=== PATIENT | male | born 1945 | race Caucasian/White ===

== ENCOUNTER 2018-01-12 09:49 | Inpatient (IN) | payer OTHER ==
[~2018-01-12] VITALS: Ht 175.3 cm; Wt 94.6 kg
[~2018-01-12 09:49] MED LIST: AMIO200T4 PO; ASPI-252 PO; ASPI325T11 PO; ASPI325T8 PO; ATOR20TA PO; ATOR20TA58 PO; CELE200C PO; CLOP75TA57 PO; FERR325T14 PO; FERR325T72 PO; LISI2.5T PO; METO-239 PO; METO25TA4 PO; Metoprolol Tartrate PO; NICO1PAT5; Nicotine TD; OXYC1TAB7 PO; Oxycodone Hcl/Acetaminophen PO; PANT40TA3 PO
[2018-01-12] MEDS ORDERED: TAMSULOSIN 0.4 MG CAP.ER.24H. PO ONE (11:00)
[2018-01-12] MEDS ORDERED: IPRATRPIUM/ALBUTEROL 0.5/2.5MG 3 ML NEBU. NEB ONE (11:00)
[2018-01-12 11:05] LABS: BILIRUBIN,URINE NEGATIVE (NEG); CLARITY,URINE TURBID; COLOR,URINE YELLOW; NITRITE,URINE POSITIVE (NEG); PROTEIN,URINE 30 mg/dL (NEG-TRACE)
[2018-01-12 11:22] LABS: BACTERIA,URINE MANY /HPF (0-FEW); RBC,URINE OCC /HPF (0-2); SQUAMOUS EPITHELIAL CELL,UR OCC /LPF; WBC,URINE >40 /HPF (0-4)
[2018-01-12] MEDS ORDERED: HYDROcodone/APAP 5/325MG 1 TAB TABLET PO ONE (11:30)
--- NOTE | 2018-01-12 11:33 | RAD ---
Examination: CT ABDOMEN PELVIS WO CONTRAST History: inability to void/enlarged prostate Comparison/Correlation: None Findings: Axial images of the abdomen and pelvis were obtained without contrast. Sagittal and coronal provided. Lack of IV contrast may limit detection for mass lesions and inflammatory processes. Emphysematous involvement of the lung bases noted. Linear scarring or atelectasis involves the lingula. Low-attenuation involving the intersegmental fissure region of the liver is present. There are 2 foci present and may represent focal fatty infiltration. Gallbladder fossa is unremarkable. Spleen, pancreas, and adrenal glands are normal. Normal renal contours. No hydronephrosis. No radiopaque collecting system calculus. There is a diverticulum involving the right lateral upper urinary bladder and this measures up to 1.8 cm in diameter. Urinary bladder is grossly unremarkable otherwise. Evaluation of the lower urinary bladder is limited due to left hip joint prosthesis and associated artifact. Appendix is normal. No bowel obstruction. Minimal diverticulosis of the colon. Prostate gland measures 5.7 cm transverse by 3.9 cm anteroposterior. No enlarged pelvic lymph nodes. No pelvic free fluid. Kyphoplasty at L2 is noted. Impression: Prostatomegaly. No significant wall thickening of the urinary bladder. Urinary bladder is moderately distended. Urinary bladder diverticulum is small in size. No radiopaque collecting system calculi. Electronically signed by: Thomas Millan MD (01/12/2018 11:30 AM) [facility]
--- NOTE | 2018-01-12 11:39 | EKG ---
[facility] [address] [place] [address] Test Date: 2018-01-12 Test Time: 11:24:12 Pat Name: BRITTANIE HIGUERA Department: Room: Gender: M Medicare Nurse: : 1945 Requested By: ADDIE RUIZ Order Number: [id number] Reading MD: Felipe Vega MD Measurements Intervals [place] Rate: 86 P: 156 HI: 148 QRS: -22 QRSD: 70 T: 151 QT: 350 QTc: 422 Interpretive Statements SR MISSING LEADS NON-SPECIFIC ST/T CHANGES Electronically Signed On 01-13-2018 10:57:37 SITE ACQUISITION MANAGER by Felipe Vega MD
--- NOTE | 2018-01-12 11:39 | PHYS DOC ---
Past Medical History Past Medical History: High Cholesterol, Hypertension, PR Past Surgical History: Angioplasty, Coronary Bypass Surgery, Other Additional Past Surgical Histo: l hip sx, 5 vessle cabg, stents x6 Alcohol Use: None Drug Use: None Adult General Chief Complaint Chief Complaint: PAIN ON URINATION HPI HPI Patient is a 72 year old male with history of high cholesterol, hypertension, BPH, who presents today with difficulty voiding that began yesterday. Patient states he has enlarged prostate and is on medication. He states since yesterday he can only dribble small amount of urine and that's after pushing hard to void. Patient denies any hematuria. Denies any dysuria. He is also complaining of chronic shortness of breath. He states he recently stopped smoking. Patient denies any chest pain. He states he is supposed to be on an breathing treatments but he cannot afford the inhaler. Review of Systems Review of Systems Constitutional: Denies fever or chills [] Eyes: Denies change in visual acuity, redness, or eye pain [] HENT: Denies nasal congestion or sore throat [] Respiratory: Reports chronic shortness of breath, denies coughing Cardiovascular: No additional information not addressed in HPI [] GI: Denies abdominal pain, nausea, vomiting, bloody stools or diarrhea [] : Reports difficulty voiding. Denies dysuria or hematuria [] Musculoskeletal: Denies back pain or joint pain [] Integument: Denies rash or skin lesions [] Neurologic: Denies headache, focal weakness or sensory changes [] All other systems were reviewed and found to be within normal limits, except as documented in this note. Current Medications Current Medications Current Medications Medications (Trade) Dose Ordered Sig/Mj Start Time Stop Time Status Last Admin Dose Admin Acetaminophen/ Hydrocodone Bitart (Lortab 5/325) 1 tab 1X ONCE 01/12/18 11:30 01/12/18 11:33 DC 01/12/18 11:51 1 TAB Albuterol/ Ipratropium (Duoneb) 3 ml 1X ONCE 01/12/18 11:00 01/12/18 11:01 DC 01/12/18 11:33 3 ML Ceftriaxone Sodium 50 ml @ 100 mls/hr 1X ONCE 01/12/18 12:15 01/12/18 12:44 DC 01/12/18 12:15 100 MLS/HR Morphine Sulfate (Morphine Sulfate) 5 mg 1X ONCE 01/12/18 13:15 01/12/18 13:16 DC 01/12/18 13:05 5 MG Tamsulosin HCl (Flomax) 0.4 mg 1X ONCE 01/12/18 11:00 01/12/18 11:01 DC 01/12/18 11:50 0.4 MG Allergies Allergies Allergies Coded Allergies Type Severity Reaction Last Updated Verified No Known Drug Allergies 11/04/14 No Physical Exam Physical Exam Constitutional: Well developed, well nourished, no acute distress, non-toxic appearance. [] HENT: Normocephalic, atraumatic, bilateral external ears normal, oropharynx moist, no oral exudates, nose normal. [] Eyes: PERRLA, EOMI, conjunctiva normal, no discharge. [] Neck: Normal range of motion, no tenderness, supple, no stridor. [] Cardiovascular:Heart rate regular rhythm, no murmur [] Lungs & Thorax: Bilateral breath sounds clear to auscultation [] Abdomen: Bowel sounds normal, soft, no tenderness, no masses, no pulsatile masses. [] Skin: Warm, dry, no erythema, no rash. [] Back: No tenderness, no CVA tenderness. [] Extremities: No tenderness, no cyanosis, no clubbing, ROM intact, no edema. [] Neurologic: Alert and oriented X 3, normal motor function, normal sensory function, no focal deficits noted. [] Psychologic: Affect normal, judgement normal, mood normal. [] Current Patient Data Vital Signs Vital Signs Date Time Temp Pulse Resp B/P (MAP) Pulse Ox O2 Delivery O2 Flow Rate FiO2 01/12/18 13:05 16 99 01/12/18 11:33 Room Air 01/12/18 10:15 99.2 93 118/55 (76) 99.2 Lab Values Laboratory Tests Test 01/12/18 11:00 01/12/18 11:45 Urine Collection Type Unknown Urine Color Yellow Urine Clarity Turbid Urine pH 6.0 Urine Specific [place] 1.020 Urine Protein 30 mg/dL (NEG-TRACE) Urine Glucose (UA) Negative mg/dL (NEG) Urine Ketones (Stick) Negative mg/dL (NEG) Urine Blood Moderate (NEG) Urine Nitrite Positive (NEG) Urine Bilirubin Negative (NEG) Urine Urobilinogen Dipstick 1.0 mg/dL (0.2 mg/dL) Urine Leukocyte Esterase Large (NEG) Urine RBC Occ /HPF (0-2) Urine WBC >40 /HPF (0-4) Urine Squamous Epithelial Cells Occ /LPF Urine Bacteria Many /HPF (0-FEW) White Blood Count 20.7 x10^3/uL (4.0-11.0) H Red Blood Count 4.50 x10^6/uL (4.30-5.70) Hemoglobin 13.6 g/dL (13.0-17.5) Hematocrit 40.2 % (39.0-53.0) Mean Corpuscular Volume 89 fL (79-100) Mean Corpuscular Hemoglobin 30 pg (25-35) Mean Corpuscular Hemoglobin Concent 34 g/dL (31-37) Red Cell Distribution Width 14.9 % (11.5-14.5) H Platelet Count 232 x10^3/uL (140-400) Neutrophils (%) (Auto) 85 % (31-73) H Lymphocytes (%) (Auto) 4 % (24-48) L Monocytes (%) (Auto) 11 % (0-9) H Eosinophils (%) (Auto) 0 % (0-3) Basophils (%) (Auto) 0 % (0-3) Neutrophils # (Auto) 17.6 x10^3uL (1.8-7.7) H Lymphocytes # (Auto) 0.9 x10^3/uL (1.0-4.8) L Monocytes # (Auto) 2.2 x10^3/uL (0.0-1.1) H Eosinophils # (Auto) 0.0 x10^3/uL (0.0-0.7) Basophils # (Auto) 0.0 x10^3/uL (0.0-0.2) Segmented Neutrophils % 75 % (35-66) H Band Neutrophils % 7 % (0-9) Lymphocytes % 6 % (24-48) L Monocytes % 12 % (0-10) H Toxic Granulation Slight Platelet Estimate Adequate (ADEQUATE) Sodium Level 138 mmol/L (136-145) Potassium Level 4.1 mmol/L (3.5-5.1) Chloride Level 101 mmol/L (98-107) Carbon Dioxide Level 25 mmol/L (21-32) Anion Gap 12 (6-14) Blood Urea Nitrogen 39 mg/dL (8-26) H Creatinine 2.2 mg/dL (0.7-1.3) H Estimated GFR (Cockcroft-Gault) 29.7 BUN/Creatinine Ratio 18 (6-20) Glucose Level 110 mg/dL (70-99) H Calcium Level 9.0 mg/dL (8.5-10.1) Magnesium Level 1.9 mg/dL (1.8-2.4) Total Bilirubin 1.8 mg/dL (0.2-1.0) H Aspartate Amino Transferase (AST) 16 U/L (15-37) Alanine Aminotransferase (ALT) 20 U/L (16-63) Alkaline Phosphatase 70 U/L (46-116) Troponin I Quantitative < 0.017 ng/mL (0.000-0.055) TM-Kvk-[id number]-Type Natriuretic Peptide 5531 pg/mL (0-124) H Total Protein 7.3 g/dL (6.4-8.2) Albumin 3.2 g/dL (3.4-5.0) L Albumin/Globulin Ratio 0.8 (1.0-1.7) L Thyroid Stimulating Hormone (TSH) 1.746 uIU/mL (0.358-3.74) Laboratory Tests 01/12/18 11:45 Laboratory Tests 01/12/18 11:45 EKG EKG 11:[address] william sinus rhythm heart rate 86 no STEMI[] Radiology/Procedures Radiology/Procedures []PROCEDURE: CT ABDOMEN PELVIS WO CONTRAST Examination: CT ABDOMEN PELVIS WO CONTRAST History: inability to void/enlarged prostate Comparison/Correlation: None Findings: Axial images of the abdomen and pelvis were obtained without contrast. Sagittal and coronal provided. Lack of IV contrast may limit detection for mass lesions and inflammatory processes. Emphysematous involvement of the lung bases noted. Linear scarring or atelectasis involves the lingula. Low-attenuation involving the intersegmental fissure region of the liver is present. There are 2 foci present and may represent focal fatty infiltration. Gallbladder fossa is unremarkable. Spleen, pancreas, and adrenal glands are normal. Normal renal contours. No hydronephrosis. No radiopaque collecting system calculus. There is a diverticulum involving the right lateral upper urinary bladder and this measures up to 1.8 cm in diameter. Urinary bladder is grossly unremarkable otherwise. Evaluation of the lower urinary bladder is limited due to left hip joint prosthesis and associated artifact. Appendix is normal. No bowel obstruction. Minimal diverticulosis of the colon. Prostate gland measures 5.7 cm transverse by 3.9 cm anteroposterior. No enlarged pelvic lymph nodes. No pelvic free fluid. Kyphoplasty at L2 is noted. Impression: Prostatomegaly. No significant wall thickening of the urinary bladder. Urinary bladder is moderately distended. Urinary bladder diverticulum is small in size. No radiopaque collecting system calculi. Electronically signed by: Thomas Garay MD (01/12/2018 11:30 AM) [facility] DICTATED and SIGNED BY: THOMAS GARAY MD DATE: 01/12/18 1122 PROCEDURE: PORTABLE CHEST 1V PORTABLE CHEST 1V History: CHEST TIGHTNESS X TODAY. Comparison: March 06, 2016 Cardiomediastinal silhouette is stable and not enlarged. Subtle nodular opacity at the left lung base laterally, likely just overlapping rib and vascular shadows. No focal consolidation. No pneumothorax identified. No evidence of pleural effusion. Postsurgical changes identified in the chest. Impression: Subtle nodular opacity at the left lung base laterally, not seen previously, but may just represent overlapping normal shadows. Consider short-term follow-up or CT chest. No acute findings. Electronically signed by: Steve Hitchcock MD (01/12/2018 12:22 PM) [facility] DICTATED and SIGNED BY: STEVE HITCHCOCK MD DATE: 01/12/18 1220 Course & Med Decision Making Course & Med Decision Making Pertinent Labs and Imaging studies reviewed. (See chart for details) This is a 72-year-old male patient presented to the ED today complaining of difficulty voiding since yesterday, has history of enlarged prostate. Also complaining of chronic shortness of breath. On arrival to the ED temperature was 99.2, heart rate 93, O2 sats 97% on room air, respirations 16 on room air, blood pressure 118/55. Patient was given a DuoNeb treatment for his chronic shortness of breath. Lozada was placed on arrival to the ED. 300 mL immediate drainage noted in the Lozada bag. EKG is negative for any acute findings, troponin is normal, CBC with WBC of 20.7. CMP with creatinine of 2.2 BUN 39, patient creatinine has been going up looking at his previous labs. Chest x-ray was noted for possible lung nodule with recommendation to follow-up as an outpatient for CT. CT of the abdomen and pelvic without IV contrast was noted for prostatomegaly. Patient was given Rocephin in the ED, also ordered Cipro on admission. Consulted with Dr. Lassiter who accepted patient for admission. Patient was given IV fluids as well as. Routine consult placed for urology and nephrology. Dragon Disclaimer Dragon Disclaimer This electronic medical record was generated, in whole or in part, using a voice recognition dictation system. Departure Departure Impression: Primary Impression: Urinary retention Additional Impressions: Acute pyelonephritis Leukocytosis Chronic shortness of breath Acute on chronic renal failure Disposition: ADMITTED INPATIENT Condition: LEFT WITHOUT BEING SEEN Referrals: RAFAT HENRIQUEZ (PCP) Problem Qualifiers Additional Impressions: Leukocytosis Leukocytosis type: unspecified Qualified Codes: D72.829 - Elevated white blood cell count, unspecified Acute on chronic renal failure Acute renal failure type: unspecified Chronic kidney disease stage: unspecified stage Qualified Codes: N17.9 - Acute kidney failure, unspecified; N18.9 - Chronic kidney disease, unspecified ADDIE RUIZ [employer] DESK TEAM MEMBER Jan 12, 2018 11:39
[2018-01-12 11:59] LABS: BASO % 0 % (0-3); EOS % 0 % (0-3); HEMATOCRIT 40.2 % (39.0-53.0); HEMOGLOBIN 13.6 g/dL (13.0-17.5); LYMPH # 0.9 x10^3/uL (1.0-4.8); LYMPH % 4 % (24-48); MEAN CORPUSCULAR HEMOGLOBIN 30 pg (25-35); MEAN CORPUSCULAR HGB CONC 34 g/dL (31-37); MEAN CORPUSCULAR VOLUME 89 fL (79-100); MONO # 2.2 x10^3/uL (0.0-1.1); MONO % 11 % (0-9); NEUT # 17.6 x10^3uL (1.8-7.7); NEUT % 85 % (31-73); PLATELET COUNT 232 x10^3/uL (140-400); RED CELL DISTRIBUTION WIDTH 14.9 % (11.5-14.5); WHITE BLOOD COUNT 20.7 x10^3/uL (4.0-11.0)
[2018-01-12 12:07] LABS: CREATININE 2.2 mg/dL (0.7-1.3); GFR 29.7; POTASSIUM 4.1 mmol/L (3.5-5.1)
[2018-01-12 12:13] LABS: ALBUMIN 3.2 g/dL (3.4-5.0); ALBUMIN/GLOBULIN RATIO 0.8 (1.0-1.7); MAGNESIUM 1.9 mg/dL (1.8-2.4); TOTAL BILIRUBIN 1.8 mg/dL (0.2-1.0); TOTAL PROTEIN 7.3 g/dL (6.4-8.2)
--- NOTE | 2018-01-12 12:26 | RAD ---
PORTABLE CHEST 1V History: CHEST TIGHTNESS X TODAY. Comparison: March 06, 2016 Cardiomediastinal silhouette is stable and not enlarged. Subtle nodular opacity at the left lung base laterally, likely just overlapping rib and vascular shadows. No focal consolidation. No pneumothorax identified. No evidence of pleural effusion. Postsurgical changes identified in the chest. Impression: Subtle nodular opacity at the left lung base laterally, not seen previously, but may just represent overlapping normal shadows. Consider short-term follow-up or CT chest. No acute findings. Electronically signed by: Steve Hitchcock MD (01/12/2018 12:22 PM) [facility]
--- NOTE | 2018-01-12 12:49 | EKG ---
[facility] [address] [place] [address] Test Date: 2018-01-12 Test Time: 11:58:09 Pat Name: BRITTANIE HIGUERA Department: Room: Gender: M [employer]: : 1945 Requested By: ADDIE RUIZ Order Number: [id number] Reading MD: Felipe Vega MD Measurements Intervals [place] Rate: 88 P: 161 IN: 142 QRS: -23 QRSD: 78 T: 150 QT: 378 QTc: 461 Interpretive Statements SINUS RHYTHM MISSING LEADS Electronically Signed On 01-13-2018 10:57:58 RATE EXAMINER by Felipe Vega MD
[2018-01-12] MEDS ORDERED: MORPHINE SULFATE 10 MG/ML VIAL. IV ONE (13:15)
[2018-01-12 14:24] LABS: % BANDS 7 % (0-9); % LYMPHS 6 % (24-48); % MONOS 12 % (0-10); % SEGS 75 % (35-66)
[2018-01-12 14:27] LABS: PLT ESTIMATE ADEQUATE (ADEQUATE); TOXIC GRANULATION SLIGHT
[2018-01-12] MEDS ORDERED: IV NORMAL SALINE 1000ML BAG 1,000 ML IV ONE (14:30)
[2018-01-12] MEDS ORDERED: MORPHINE SULFATE 4 MG/ML VIAL. IV PRN (14:30)
[2018-01-12] MEDS ORDERED: ONDANSETRON PF 4 MG/2 ML VIAL. IV PRN (14:30)
[2018-01-12] MEDS ORDERED: ONDANSETRON PF 4 MG/2 ML VIAL. IV ONE (14:30)
[2018-01-12] MEDS ORDERED: ACETAMINOPHEN 325 MG TABLET. PO PRN (14:30)
[2018-01-12 15:45] VITALS: BP 107/55
[2018-01-12] MEDS: IV NORMAL SALINE 1000ML BAG 1,000 ML IV SCH (16:28)
[2018-01-12] MEDS ORDERED: IV NORMAL SALINE 1000ML BAG 1,000 ML IV SCH (17:45)
--- NOTE | 2018-01-12 17:51 | HP ---
ADMIT DATE: 01/12/2018 CHIEF COMPLAINT: Difficulty voiding, pain with urination. HISTORY OF PRESENT ILLNESS: The patient is a pleasant 72-year-old male who presents with the above chief complaints. Basically for the past couple of days, he has been having problems urinating. He has painful urination as well and cannot hardly go. It has been worsening over the past few weeks, but in particular the past couple of days. He has a known history of BPH. He has been dribbling some urine. We tried increasing his Flomax, but that did not seem to work. He denies any hematuria. Rates his symptoms at 7/10 and describes them as agonizing. I discussed the case with ER physician. The patient also has renal failure with a creatinine of 2.2. We are going to admit the patient and consult Urology. PAST MEDICAL HISTORY: BPH, hypertension, myocardial infarction, angioplasty, coronary bypass, 6 stents. ALLERGIES: None. FAMILY HISTORY: Diabetes and coronary artery disease. SOCIAL HISTORY: He is retired. Does not drink, smoke or take drugs. MEDICATIONS: Reviewed, please refer to the MRAD. He is on 7 home meds including Plavix, Lipitor, metoprolol, lisinopril, aspirin, oxycodone, Protonix. REVIEW OF SYSTEMS: GENERAL: No history of weight change, weakness or fevers. SKIN: No bruising, hair changes or rashes. EYES: No blurred, double or loss of vision. NOSE AND THROAT: No history of nosebleeds, hoarseness or sore throat. HEART: No history of palpitations, chest pain or shortness of breath on exertion. LUNGS: Denies cough, hemoptysis, wheezing or shortness of breath. GASTROINTESTINAL: Denies changes in appetite, nausea, vomiting, diarrhea or constipation. GENITOURINARY: He complains of dysuria and difficulty starting his stream. NEUROLOGIC: Denies history of numbness, tingling, tremor or weakness. PSYCHIATRIC: No history of panic, anxiety or depression. ENDOCRINE: No history of heat or cold intolerance, polyuria or polydipsia. EXTREMITIES: Denies muscle weakness, joint pain, pain on walking or stiffness. PHYSICAL EXAMINATION: VITAL SIGNS: Temperature afebrile, pulse 74, respirations 18, blood pressure 142/81. GENERAL: He is alert, cooperative. His family is present. HEART: Normal S1, S2. LUNGS: Clear to auscultation. ABDOMEN: Soft, little distended, tender. EXTREMITIES: Trace edema. SKIN: No rashes. ENDOCRINE: No thyromegaly. LYMPHATICS: No cervical nodes. HEMATOPOIETIC: No bruising. PSYCHIATRIC: He is stable. LABORATORY DATA: BUN 39, creatinine 2.2, white count 21. Urinalysis shows a UTI with large amount of leukocyte esterase and greater than 40 white cells. ASSESSMENT AND PLAN: Pyelonephritis, severe benign prostatic hypertrophy, acute renal failure secondary to above. The patient has been admitted. We placed a Lozada. We will start IV antibiotics, IV fluids. Consult Urology. Continue home medicines. Suspect he is going to need a TURP. PROGNOSIS: Guarded. MARC LEE DO DR: DANIELLE/kwabena JOB#: [id number] / [id number]
[2018-01-12 19:15] VITALS: BP 92/40
[2018-01-12] MEDS: METOPROLOL SUCC 24HR ER 25 MG TAB.ER.24H. PO SCH (20:14)
[2018-01-12] MEDS: oxyCODONE/APAP 5/325 1 TAB TABLET PO PRN (20:30)
[2018-01-12] MEDS: ATORVASTATIN CALCIUM 20 MG TABLET PO SCH (20:31)
[2018-01-12] MEDS: TAMSULOSIN 0.4 MG CAP.ER.24H. PO SCH (20:31)
[2018-01-12] MEDS: CIPROFLOXACIN 400MG PREMIX 200 ML IV SCH (20:32)
[2018-01-12] MEDS ORDERED: PROMETH/CODEINE 6.25/10MG 5 ML SYRUP. PO PRN (20:45)
[2018-01-12] MEDS: PROMETH/CODEINE 6.25/10MG 5 ML SYRUP. PO PRN (20:55)
[2018-01-12 23:15] VITALS: BP 105/50
[2018-01-13] VITALS (8 sets, daily range): BP systolic 87–121; BP diastolic 44–58
[2018-01-13] MEDS: IV NORMAL SALINE 1000ML BAG 1,000 ML IV SCH ×3 (05:15→20:24)
[2018-01-13] MEDS ORDERED: IV NORMAL SALINE 500ML BAG 500 ML IV ONE ×2 (05:30→12:00)
[2018-01-13 06:29] LABS: BASO # 0.1 x10^3/uL (0.0-0.2); BASO % 1 % (0-3); EOS % 0 % (0-3); HEMATOCRIT 33.5 % (39.0-53.0); HEMOGLOBIN 11.3 g/dL (13.0-17.5); LYMPH # 1.4 x10^3/uL (1.0-4.8); LYMPH % 9 % (24-48); MEAN CORPUSCULAR HEMOGLOBIN 31 pg (25-35); MEAN CORPUSCULAR HGB CONC 34 g/dL (31-37); MEAN CORPUSCULAR VOLUME 90 fL (79-100); MONO # 1.5 x10^3/uL (0.0-1.1); MONO % 10 % (0-9); NEUT # 13.1 x10^3uL (1.8-7.7); NEUT % 81 % (31-73); PLATELET COUNT 166 x10^3/uL (140-400); RED BLOOD COUNT 3.71 x10^6/uL (4.30-5.70); RED CELL DISTRIBUTION WIDTH 15.2 % (11.5-14.5); WHITE BLOOD COUNT 16.2 x10^3/uL (4.0-11.0)
[2018-01-13 06:43] LABS: CALCIUM 8.3 mg/dL (8.5-10.1); CREATININE 1.8 mg/dL (0.7-1.3); GFR 37.4; POTASSIUM 4.2 mmol/L (3.5-5.1)
[2018-01-13] MEDS: ASPIRIN ENTERIC COATED 325 MG TABLET.DR. PO SCH (08:08)
[2018-01-13] MEDS: PROMETH/CODEINE 6.25/10MG 5 ML SYRUP. PO PRN ×2 (08:08→20:21)
[2018-01-13] MEDS: PANTOPRAZOLE 40 MG TABLET.DR. PO SCH (08:08)
[2018-01-13] MEDS: CIPROFLOXACIN 400MG PREMIX 200 ML IV SCH ×2 (08:08→20:22)
[2018-01-13] MEDS: LISINOPRIL 5 MG TABLET. PO SCH (08:09)
[2018-01-13] MEDS: TAMSULOSIN 0.4 MG CAP.ER.24H. PO SCH ×2 (08:09→20:23)
--- NOTE | 2018-01-13 08:34 | PDOC2 ---
UROLOGY CONSULT Date of Consult Date of Consult DATE: 01/13/18 TIME: 08:33 Reason for Consult Reason for Consult: Urinary Retention Referring Physician Referring Physician: Dr. Lassiter. Identification/Chief Complaint Chief Complaint Urinary retention/BPH Source Source: Caregiver, Chart review, Patient History of Present Illness Reason for Visit: Patient is a 72 year old male with history of high cholesterol, hypertension, BPH, who presented yesterday to the ER with difficulty voiding. He has a history of BPH that he takes Flomax for. This problem had really been going on for 2-3 days and it got really bad yesterday so he came into [facility] ED. A catheter was placed, and the amount out is not charted, but the patient does report an output of about one large bag full or 1000 ml. He denies a history of prostate cancer or kidney problems or stones. He also denies hematuria. He is not having any pain today and his vora catheter is not bothering him. Past Medical History Cardiovascular: CAD, CHF, HTN, Hyperlipidemia Pulmonary: COPD CENTRAL NERVOUS SYSTEM: Other GI: GERD Heme/Onc: No pertinent hx Hepatobiliary: No pertinent hx Psych: No pertinent hx Musculoskeletal: Osteoarthritis Rheumatologic: No pertinent hx Infectious disease: No pertinent hx Renal/: No pertinent hx (Diagnosed by PCP, on flomax as outpatient.), Benign prostatic enlarg. Endocrine: No pertinent hx Past Surgical History Past Surgical History: Other Family History Family History: Hypertension Social History Quit (2 weeks ago) ALCOHOL: none Drugs: None Lives: with Family Current Problem List Problems: (1) Vora catheter in place (2) Urinary retention Current Medications Current Medications Current Medications Acetaminophen (Tylenol) 650 mg PRN Q4HRS PRN PO FEVER; Start 01/12/18 at 14:30 ; Stop 01/13/18 at 14:29 Acetaminophen/ Hydrocodone Bitart (Lortab 5/325) 1 tab 1X ONCE PO Last administered on 01/12/18at 11:51; Start 01/12/18 at 11:30; Stop 01/12/18 at 11 :33; Status DC Albuterol/ Ipratropium (Duoneb) 3 ml 1X ONCE NEB Last administered on at 11:33; Start 01/12/18 at 11:00; Stop 01/12/18 at 11:01; Status DC Aspirin (Ecotrin) 325 mg DAILY PO Last administered on 01/13/18at 08:08; Start 01/13/18 at 09:00 Atorvastatin Calcium (Lipitor) 20 mg QHS PO Last administered on 01/12/18at 20: 31; Start 01/12/18 at 21:00 Ceftriaxone Sodium 50 ml @ 100 mls/hr 1X ONCE IV Last administered on at 12:15; Start 01/12/18 at 12:15; Stop 01/12/18 at 12:44; Status DC Ciprofloxacin/ Dextrose 200 ml @ 200 mls/hr Q12HR IV Last administered on at 08:08; Start 01/12/18 at 21:00 Lisinopril (Prinivil) 2.5 mg DAILY PO ; Start 01/13/18 at 09:00 Metoprolol Succinate (Toprol Xl) 25 mg HS PO ; Start 01/12/18 at 21:00 Morphine Sulfate (Morphine Sulfate) 4 mg PRN Q2HR PRN IV PAIN; Start 01/12/18 at 14:30; Stop 01/13/18 at 14:29 Morphine Sulfate (Morphine Sulfate) 5 mg 1X ONCE IV Last administered on 01/12at 13:05; Start 01/12/18 at 13:15; Stop 01/12/18 at 13:16; Status DC Ondansetron HCl (Zofran) 4 mg 1X ONCE IV Last administered on 01/12/18at 14:31 ; Start 01/12/18 at 14:30; Stop 01/12/18 at 14:31; Status DC Ondansetron HCl (Zofran) 4 mg PRN Q8HRS PRN IV NAUSEA/VOMITING Last administered on 01/12/18at 21:11; Start 01/12/18 at 14:30; Stop 01/13/18 at 14 :29 Oxycodone/ Acetaminophen (Percocet 5/325) 2 tab PRN Q4HRS PRN PO MODERATE PAIN , 2ND CHOICE Last administered on 01/12/18at 20:30; Start 01/12/18 at 17:45 Pantoprazole Sodium (Protonix) 40 mg DAILYAC PO Last administered on at 08:08; Start 01/13/18 at 07:30 Promethazine HCl/ Codeine (Phenergan With Codeine Oral Syrup) 5 ml PRN Q4HRS PRN PO COUGH Last administered on 01/13/18at 08:08; Start 01/12/18 at 20:45 Promethazine HCl/ Codeine (Phenergan With Codeine Oral Syrup) 10 ml PRN Q4HRS PRN PO COUGH; Start 01/12/18 at 20:45 Sodium Chloride 500 ml @ 500 mls/hr 1X ONCE IV Last administered on at 05:19; Start 01/13/18 at 05:30; Stop 01/13/18 at 06:29; Status DC Sodium Chloride 1,000 ml @ 75 mls/hr [id number] IV Last administered on at 05:15; Start 01/12/18 at 14:30 Sodium Chloride 1,000 ml @ 75 mls/hr [id number] IV ; Start 01/12/18 at 17:45; Stop 01/12/18 at 19:12; Status DC Sodium Chloride 1,000 ml @ 1,000 mls/hr 1X ONCE IV Last administered on 01/12at 14:31; Start 01/12/18 at 14:30; Stop 01/12/18 at 15:29; Status DC Tamsulosin HCl (Flomax) 0.4 mg 1X ONCE PO Last administered on 01/12/18at 11: 50; Start 01/12/18 at 11:00; Stop 01/12/18 at 11:01; Status DC Tamsulosin HCl (Flomax) 0.4 mg DAILY PO Last administered on 01/13/18at 08:09; Start 01/13/18 at 09:00 Tamsulosin HCl (Flomax) 0.4 mg QHS PO Last administered on 01/12/18at 20:31; Start 01/12/18 at 21:00 Allergies Allergies: Coded Allergies: No Known Drug Allergies (Unverified , 11/04/14) ROS Review Of Systems: CONSTITUTIONAL: No fever or chills EYES: No recent changes SKIN: No rash or itching CARDIOVASCULAR: No chest pain, syncope, palpitations, or edema RESPIRATORY: No SOB or cough GASTROINTESTINAL: No nausea, vomiting or abdominal pain NEUROLOGICAL: No headaches or weakness ENDOCRINE: No cold or heat intolerance GENITOURINARY: + frequency, urinary retention, BPH MUSCULOSKELETAL: No back pain or joint pain LYMPHATICS: No enlarged lymph nodes PSYCHIATRIC: No anxiety or depression Physical Exam Physical Exam: General: Pleasant, no acute distress, well groomed Eyes: conjunctiva anicteric, eyes full range of motion ENT: moist oral mucosa, normal dentition Neck: Trachea midline, no masses Respiratory: unlabored breathing, not using accessory muscles Abdomen: nontender, nondistended Pelvic: Uncirc phallus, WNL. Vora catheter in place draining clear yellow urine. Device in good working order. Skin: no rashes or skin lesions on visualized skin Psych: normal mood, affect. Alert and oriented x 3. Vitals VITALS Vital Signs Date Time Temp Pulse Resp B/P (MAP) Pulse Ox O2 Delivery O2 Flow Rate FiO2 01/13/18 08:09 65 95/56 01/13/18 07:22 Room Air 01/13/18 07:00 97.7 20 95 97.7 Labs Labs Laboratory Tests Test 01/12/18 11:00 01/12/18 11:45 01/12/18 15:07 01/13/18 05:35 Urine Collection Type Unknown Urine Color Yellow Urine Clarity Turbid Urine pH 6.0 Urine Specific [place] 1.020 Urine Protein 30 mg/dL (NEG-TRACE) Urine Glucose (UA) Negative mg/dL (NEG) Urine Ketones (Stick) Negative mg/dL (NEG) Urine Blood Moderate (NEG) Urine Nitrite Positive (NEG) Urine Bilirubin Negative (NEG) Urine Urobilinogen Dipstick 1.0 mg/dL (0.2 mg/dL) Urine Leukocyte Esterase Large (NEG) Urine RBC Occ /HPF (0-2) Urine WBC >40 /HPF (0-4) Urine Squamous Epithelial Cells Occ /LPF Urine Bacteria Many /HPF (0-FEW) White Blood Count 20.7 x10^3/uL (4.0-11.0) 16.2 x10^3/uL (4.0-11.0) Red Blood Count 4.50 x10^6/uL (4.30-5.70) 3.71 x10^6/uL (4.30-5.70) Hemoglobin 13.6 g/dL (13.0-17.5) 11.3 g/dL (13.0-17.5) Hematocrit 40.2 % (39.0-53.0) 33.5 % (39.0-53.0) Mean Corpuscular Volume 89 fL (79-100) 90 fL (79-100) Mean Corpuscular Hemoglobin 30 pg (25-35) 31 pg (25-35) Mean Corpuscular Hemoglobin Concent 34 g/dL (31-37) 34 g/dL (31-37) Red Cell Distribution Width 14.9 % (11.5-14.5) 15.2 % (11.5-14.5) Platelet Count 232 x10^3/uL (140-400) 166 x10^3/uL (140-400) Neutrophils (%) (Auto) 85 % (31-73) 81 % (31-73) Lymphocytes (%) (Auto) 4 % (24-48) 9 % (24-48) Monocytes (%) (Auto) 11 % (0-9) 10 % (0-9) Eosinophils (%) (Auto) 0 % (0-3) 0 % (0-3) Basophils (%) (Auto) 0 % (0-3) 1 % (0-3) Neutrophils # (Auto) 17.6 x10^3uL (1.8-7.7) 13.1 x10^3uL (1.8-7.7) Lymphocytes # (Auto) 0.9 x10^3/uL (1.0-4.8) 1.4 x10^3/uL (1.0-4.8) Monocytes # (Auto) 2.2 x10^3/uL (0.0-1.1) 1.5 x10^3/uL (0.0-1.1) Eosinophils # (Auto) 0.0 x10^3/uL (0.0-0.7) 0.0 x10^3/uL (0.0-0.7) Basophils # (Auto) 0.0 x10^3/uL (0.0-0.2) 0.1 x10^3/uL (0.0-0.2) Segmented Neutrophils % 75 % (35-66) Band Neutrophils % 7 % (0-9) Lymphocytes % 6 % (24-48) Monocytes % 12 % (0-10) Toxic Granulation Slight Platelet Estimate Adequate (ADEQUATE) Sodium Level 138 mmol/L (136-145) 137 mmol/L (136-145) Potassium Level 4.1 mmol/L (3.5-5.1) 4.2 mmol/L (3.5-5.1) Chloride Level 101 mmol/L (98-107) 104 mmol/L (98-107) Carbon Dioxide Level 25 mmol/L (21-32) 24 mmol/L (21-32) Anion Gap 12 (6-14) 9 (6-14) Blood Urea Nitrogen 39 mg/dL (8-26) 31 mg/dL (8-26) Creatinine 2.2 mg/dL (0.7-1.3) 1.8 mg/dL (0.7-1.3) Estimated GFR (Cockcroft-Gault) 29.7 37.4 BUN/Creatinine Ratio 18 (6-20) Glucose Level 110 mg/dL (70-99) 107 mg/dL (70-99) Calcium Level 9.0 mg/dL (8.5-10.1) 8.3 mg/dL (8.5-10.1) Magnesium Level 1.9 mg/dL (1.8-2.4) Total Bilirubin 1.8 mg/dL (0.2-1.0) Aspartate Amino Transf (AST/SGOT) 16 U/L (15-37) Alanine Aminotransferase (ALT/SGPT) 20 U/L (16-63) Alkaline Phosphatase 70 U/L (46-116) Troponin I Quantitative < 0.017 ng/mL (0.000-0.055) LT-Aol-K-Type Natriuretic Peptide 5531 pg/mL (0-124) Total Protein 7.3 g/dL (6.4-8.2) Albumin 3.2 g/dL (3.4-5.0) Albumin/Globulin Ratio 0.8 (1.0-1.7) Thyroid Stimulating Hormone (TSH) 1.746 uIU/mL (0.358-3.74) Lactic Acid Level 2.3 mmol/L (0.4-2.0) Laboratory Tests Test 01/12/18 11:00 01/12/18 11:45 01/12/18 15:07 01/13/18 05:35 Urine Collection Type Unknown Urine Color Yellow Urine Clarity Turbid Urine pH 6.0 Urine Specific [place] 1.020 Urine Protein 30 mg/dL (NEG-TRACE) Urine Glucose (UA) Negative mg/dL (NEG) Urine Ketones (Stick) Negative mg/dL (NEG) Urine Blood Moderate (NEG) Urine Nitrite Positive (NEG) Urine Bilirubin Negative (NEG) Urine Urobilinogen Dipstick 1.0 mg/dL (0.2 mg/dL) Urine Leukocyte Esterase Large (NEG) Urine RBC Occ /HPF (0-2) Urine WBC >40 /HPF (0-4) Urine Squamous Epithelial Cells Occ /LPF Urine Bacteria Many /HPF (0-FEW) White Blood Count 20.7 x10^3/uL (4.0-11.0) 16.2 x10^3/uL (4.0-11.0) Red Blood Count 4.50 x10^6/uL (4.30-5.70) 3.71 x10^6/uL (4.30-5.70) Hemoglobin 13.6 g/dL (13.0-17.5) 11.3 g/dL (13.0-17.5) Hematocrit 40.2 % (39.0-53.0) 33.5 % (39.0-53.0) Mean Corpuscular Volume 89 fL (79-100) 90 fL (79-100) Mean Corpuscular Hemoglobin 30 pg (25-35) 31 pg (25-35) Mean Corpuscular Hemoglobin Concent 34 g/dL (31-37) 34 g/dL (31-37) Red Cell Distribution Width 14.9 % (11.5-14.5) 15.2 % (11.5-14.5) Platelet Count 232 x10^3/uL (140-400) 166 x10^3/uL (140-400) Neutrophils (%) (Auto) 85 % (31-73) 81 % (31-73) Lymphocytes (%) (Auto) 4 % (24-48) 9 % (24-48) Monocytes (%) (Auto) 11 % (0-9) 10 % (0-9) Eosinophils (%) (Auto) 0 % (0-3) 0 % (0-3) Basophils (%) (Auto) 0 % (0-3) 1 % (0-3) Neutrophils # (Auto) 17.6 x10^3uL (1.8-7.7) 13.1 x10^3uL (1.8-7.7) Lymphocytes # (Auto) 0.9 x10^3/uL (1.0-4.8) 1.4 x10^3/uL (1.0-4.8) Monocytes # (Auto) 2.2 x10^3/uL (0.0-1.1) 1.5 x10^3/uL (0.0-1.1) Eosinophils # (Auto) 0.0 x10^3/uL (0.0-0.7) 0.0 x10^3/uL (0.0-0.7) Basophils # (Auto) 0.0 x10^3/uL (0.0-0.2) 0.1 x10^3/uL (0.0-0.2) Segmented Neutrophils % 75 % (35-66) Band Neutrophils % 7 % (0-9) Lymphocytes % 6 % (24-48) Monocytes % 12 % (0-10) Toxic Granulation Slight Platelet Estimate Adequate (ADEQUATE) Sodium Level 138 mmol/L (136-145) 137 mmol/L (136-145) Potassium Level 4.1 mmol/L (3.5-5.1) 4.2 mmol/L (3.5-5.1) Chloride Level 101 mmol/L (98-107) 104 mmol/L (98-107) Carbon Dioxide Level 25 mmol/L (21-32) 24 mmol/L (21-32) Anion Gap 12 (6-14) 9 (6-14) Blood Urea Nitrogen 39 mg/dL (8-26) 31 mg/dL (8-26) Creatinine 2.2 mg/dL (0.7-1.3) 1.8 mg/dL (0.7-1.3) Estimated GFR (Cockcroft-Gault) 29.7 37.4 BUN/Creatinine Ratio 18 (6-20) Glucose Level 110 mg/dL (70-99) 107 mg/dL (70-99) Calcium Level 9.0 mg/dL (8.5-10.1) 8.3 mg/dL (8.5-10.1) Magnesium Level 1.9 mg/dL (1.8-2.4) Total Bilirubin 1.8 mg/dL (0.2-1.0) Aspartate Amino Transf (AST/SGOT) 16 U/L (15-37) Alanine Aminotransferase (ALT/SGPT) 20 U/L (16-63) Alkaline Phosphatase 70 U/L (46-116) Troponin I Quantitative < 0.017 ng/mL (0.000-0.055) QJ-Szx-P-Type Natriuretic Peptide 5531 pg/mL (0-124) Total Protein 7.3 g/dL (6.4-8.2) Albumin 3.2 g/dL (3.4-5.0) Albumin/Globulin Ratio 0.8 (1.0-1.7) Thyroid Stimulating Hormone (TSH) 1.746 uIU/mL (0.358-3.74) Lactic Acid Level 2.3 mmol/L (0.4-2.0) Images Images CT ABD/Pelvis: Impression: Prostatomegaly. No significant wall thickening of the urinary bladder. Urinary bladder is moderately distended. Urinary bladder diverticulum is small in size. Assessment/Plan Assessment/Plan UTI: Continue antibiotics, await culture. BPH with urinary retention, output of 1000 ml initially: Nursing staff to maintain vora catheter while in house. Device will need to stay in place for one week total prior to voiding trial. If he does discharge prior to then, will need to go home with vora in place. An appointment has been arranged for patient to have a voiding trial with Dr. [place] of [facility] [place]21/18 at 0940 am. Appointment card and paperwork given to patient. All questions answered Discussed with Dr. Lassiter and attending RN. Will follow until discharge. GILBERTO ZEE APRN Jan 13, 2018 08:34
--- NOTE | 2018-01-13 09:50 | PDOC ---
PROGRESS NOTES Chief Complaint Chief Complaint Urinary Retention and SOA History of Present Illness History of Present Illness Pt was seen at bedside. He has no acute overnight events. Pt has vora catheter in place, IV fluids hanging, and Cipro antibiotics IV on board [facility] [employer], she stated that they intend to keep the vora catheter in place for 1 week, at which time the patient is scheduled to follow up at the urology clinic, they plan to do a TURP as some point in the near future. DW patient leaving the vora in for 1 week, and the probable procedure he will undergo with urology to resolve the prostamegaly. Also discussed possible discharge tomorrow AM if WBC has lowered below threshold. Current WBC at 16.2 down from 20. Pt was agreeable to remain in hospital until tomorrow. Vitals Vitals Vital Signs Date Time Temp Pulse Resp B/P (MAP) Pulse Ox O2 Delivery O2 Flow Rate FiO2 01/13/18 08:09 65 95/56 01/13/18 07:22 Room Air 01/13/18 07:00 97.7 20 95 97.7 Physical Exam General: Alert, Oriented X3, Cooperative, No acute distress Heart: Regular rate, Normal S1, Normal S2 Lungs: Clear, Other (no wheezes appreciated on ascultation) Abdomen: Normal bowel sounds, Soft Extremities: No clubbing, No cyanosis Skin: No rashes, No breakdown Labs LABS Laboratory Tests Test 01/12/18 11:00 01/12/18 11:45 01/12/18 15:07 01/13/18 05:35 Urine Collection Type Unknown Urine Color Yellow Urine Clarity Turbid Urine pH 6.0 Urine Specific [place] 1.020 Urine Protein 30 mg/dL (NEG-TRACE) Urine Glucose (UA) Negative mg/dL (NEG) Urine Ketones (Stick) Negative mg/dL (NEG) Urine Blood Moderate (NEG) Urine Nitrite Positive (NEG) Urine Bilirubin Negative (NEG) Urine Urobilinogen Dipstick 1.0 mg/dL (0.2 mg/dL) Urine Leukocyte Esterase Large (NEG) Urine RBC Occ /HPF (0-2) Urine WBC >40 /HPF (0-4) Urine Squamous Epithelial Cells Occ /LPF Urine Bacteria Many /HPF (0-FEW) White Blood Count 20.7 x10^3/uL (4.0-11.0) 16.2 x10^3/uL (4.0-11.0) Red Blood Count 4.50 x10^6/uL (4.30-5.70) 3.71 x10^6/uL (4.30-5.70) Hemoglobin 13.6 g/dL (13.0-17.5) 11.3 g/dL (13.0-17.5) Hematocrit 40.2 % (39.0-53.0) 33.5 % (39.0-53.0) Mean Corpuscular Volume 89 fL (79-100) 90 fL (79-100) Mean Corpuscular Hemoglobin 30 pg (25-35) 31 pg (25-35) Mean Corpuscular Hemoglobin Concent 34 g/dL (31-37) 34 g/dL (31-37) Red Cell Distribution Width 14.9 % (11.5-14.5) 15.2 % (11.5-14.5) Platelet Count 232 x10^3/uL (140-400) 166 x10^3/uL (140-400) Neutrophils (%) (Auto) 85 % (31-73) 81 % (31-73) Lymphocytes (%) (Auto) 4 % (24-48) 9 % (24-48) Monocytes (%) (Auto) 11 % (0-9) 10 % (0-9) Eosinophils (%) (Auto) 0 % (0-3) 0 % (0-3) Basophils (%) (Auto) 0 % (0-3) 1 % (0-3) Neutrophils # (Auto) 17.6 x10^3uL (1.8-7.7) 13.1 x10^3uL (1.8-7.7) Lymphocytes # (Auto) 0.9 x10^3/uL (1.0-4.8) 1.4 x10^3/uL (1.0-4.8) Monocytes # (Auto) 2.2 x10^3/uL (0.0-1.1) 1.5 x10^3/uL (0.0-1.1) Eosinophils # (Auto) 0.0 x10^3/uL (0.0-0.7) 0.0 x10^3/uL (0.0-0.7) Basophils # (Auto) 0.0 x10^3/uL (0.0-0.2) 0.1 x10^3/uL (0.0-0.2) Segmented Neutrophils % 75 % (35-66) Band Neutrophils % 7 % (0-9) Lymphocytes % 6 % (24-48) Monocytes % 12 % (0-10) Toxic Granulation Slight Platelet Estimate Adequate (ADEQUATE) Sodium Level 138 mmol/L (136-145) 137 mmol/L (136-145) Potassium Level 4.1 mmol/L (3.5-5.1) 4.2 mmol/L (3.5-5.1) Chloride Level 101 mmol/L (98-107) 104 mmol/L (98-107) Carbon Dioxide Level 25 mmol/L (21-32) 24 mmol/L (21-32) Anion Gap 12 (6-14) 9 (6-14) Blood Urea Nitrogen 39 mg/dL (8-26) 31 mg/dL (8-26) Creatinine 2.2 mg/dL (0.7-1.3) 1.8 mg/dL (0.7-1.3) Estimated GFR (Cockcroft-Gault) 29.7 37.4 BUN/Creatinine Ratio 18 (6-20) Glucose Level 110 mg/dL (70-99) 107 mg/dL (70-99) Calcium Level 9.0 mg/dL (8.5-10.1) 8.3 mg/dL (8.5-10.1) Magnesium Level 1.9 mg/dL (1.8-2.4) Total Bilirubin 1.8 mg/dL (0.2-1.0) Aspartate Amino Transf (AST/SGOT) 16 U/L (15-37) Alanine Aminotransferase (ALT/SGPT) 20 U/L (16-63) Alkaline Phosphatase 70 U/L (46-116) Troponin I Quantitative < 0.017 ng/mL (0.000-0.055) QB-Siv-P-Type Natriuretic Peptide 5531 pg/mL (0-124) Total Protein 7.3 g/dL (6.4-8.2) Albumin 3.2 g/dL (3.4-5.0) Albumin/Globulin Ratio 0.8 (1.0-1.7) Thyroid Stimulating Hormone (TSH) 1.746 uIU/mL (0.358-3.74) Lactic Acid Level 2.3 mmol/L (0.4-2.0) Review of Systems Review of Systems General: denies fever, chills, night sweats, unexplained wt loss Cardio: Denies chest pain, palpitations Pulm: Denies cough Assessment and Plan Assessmemt and Plan Assessment Acute Renal Failure Pyelonephritis Leukocytosis BPH Chronic shortness of Breath Plan Probable discharge tomorrow if WBC count is below threshold CBC- trend WBC for probable discharge tomorrow IV fluids IV cipro Flomax Vora catheter Await results of Urine Culture Appreciate Urology input concerning TURP procedure Appreciate Nephrology input Cardiac diet Continue home meds Continue PT/OT Comment Review of Relevant I have reviewed the following items lyndon (where applicable) has been applied. Labs Laboratory Tests Test 01/12/18 11:00 01/12/18 11:45 01/12/18 15:07 01/13/18 05:35 Urine Collection Type Unknown Urine Color Yellow Urine Clarity Turbid Urine pH 6.0 Urine Specific [place] 1.020 Urine Protein 30 mg/dL (NEG-TRACE) Urine Glucose (UA) Negative mg/dL (NEG) Urine Ketones (Stick) Negative mg/dL (NEG) Urine Blood Moderate (NEG) Urine Nitrite Positive (NEG) Urine Bilirubin Negative (NEG) Urine Urobilinogen Dipstick 1.0 mg/dL (0.2 mg/dL) Urine Leukocyte Esterase Large (NEG) Urine RBC Occ /HPF (0-2) Urine WBC >40 /HPF (0-4) Urine Squamous Epithelial Cells Occ /LPF Urine Bacteria Many /HPF (0-FEW) White Blood Count 20.7 x10^3/uL (4.0-11.0) 16.2 x10^3/uL (4.0-11.0) Red Blood Count 4.50 x10^6/uL (4.30-5.70) 3.71 x10^6/uL (4.30-5.70) Hemoglobin 13.6 g/dL (13.0-17.5) 11.3 g/dL (13.0-17.5) Hematocrit 40.2 % (39.0-53.0) 33.5 % (39.0-53.0) Mean Corpuscular Volume 89 fL (79-100) 90 fL (79-100) Mean Corpuscular Hemoglobin 30 pg (25-35) 31 pg (25-35) Mean Corpuscular Hemoglobin Concent 34 g/dL (31-37) 34 g/dL (31-37) Red Cell Distribution Width 14.9 % (11.5-14.5) 15.2 % (11.5-14.5) Platelet Count 232 x10^3/uL (140-400) 166 x10^3/uL (140-400) Neutrophils (%) (Auto) 85 % (31-73) 81 % (31-73) Lymphocytes (%) (Auto) 4 % (24-48) 9 % (24-48) Monocytes (%) (Auto) 11 % (0-9) 10 % (0-9) Eosinophils (%) (Auto) 0 % (0-3) 0 % (0-3) Basophils (%) (Auto) 0 % (0-3) 1 % (0-3) Neutrophils # (Auto) 17.6 x10^3uL (1.8-7.7) 13.1 x10^3uL (1.8-7.7) Lymphocytes # (Auto) 0.9 x10^3/uL (1.0-4.8) 1.4 x10^3/uL (1.0-4.8) Monocytes # (Auto) 2.2 x10^3/uL (0.0-1.1) 1.5 x10^3/uL (0.0-1.1) Eosinophils # (Auto) 0.0 x10^3/uL (0.0-0.7) 0.0 x10^3/uL (0.0-0.7) Basophils # (Auto) 0.0 x10^3/uL (0.0-0.2) 0.1 x10^3/uL (0.0-0.2) Segmented Neutrophils % 75 % (35-66) Band Neutrophils % 7 % (0-9) Lymphocytes % 6 % (24-48) Monocytes % 12 % (0-10) Toxic Granulation Slight Platelet Estimate Adequate (ADEQUATE) Sodium Level 138 mmol/L (136-145) 137 mmol/L (136-145) Potassium Level 4.1 mmol/L (3.5-5.1) 4.2 mmol/L (3.5-5.1) Chloride Level 101 mmol/L (98-107) 104 mmol/L (98-107) Carbon Dioxide Level 25 mmol/L (21-32) 24 mmol/L (21-32) Anion Gap 12 (6-14) 9 (6-14) Blood Urea Nitrogen 39 mg/dL (8-26) 31 mg/dL (8-26) Creatinine 2.2 mg/dL (0.7-1.3) 1.8 mg/dL (0.7-1.3) Estimated GFR (Cockcroft-Gault) 29.7 37.4 BUN/Creatinine Ratio 18 (6-20) Glucose Level 110 mg/dL (70-99) 107 mg/dL (70-99) Calcium Level 9.0 mg/dL (8.5-10.1) 8.3 mg/dL (8.5-10.1) Magnesium Level 1.9 mg/dL (1.8-2.4) Total Bilirubin 1.8 mg/dL (0.2-1.0) Aspartate Amino Transf (AST/SGOT) 16 U/L (15-37) Alanine Aminotransferase (ALT/SGPT) 20 U/L (16-63) Alkaline Phosphatase 70 U/L (46-116) Troponin I Quantitative < 0.017 ng/mL (0.000-0.055) BM-Knf-R-Type Natriuretic Peptide 5531 pg/mL (0-124) Total Protein 7.3 g/dL (6.4-8.2) Albumin 3.2 g/dL (3.4-5.0) Albumin/Globulin Ratio 0.8 (1.0-1.7) Thyroid Stimulating Hormone (TSH) 1.746 uIU/mL (0.358-3.74) Lactic Acid Level 2.3 mmol/L (0.4-2.0) Laboratory Tests Test 01/12/18 11:00 01/12/18 11:45 01/12/18 15:07 01/13/18 05:35 Urine Collection Type Unknown Urine Color Yellow Urine Clarity Turbid Urine pH 6.0 Urine Specific [place] 1.020 Urine Protein 30 mg/dL (NEG-TRACE) Urine Glucose (UA) Negative mg/dL (NEG) Urine Ketones (Stick) Negative mg/dL (NEG) Urine Blood Moderate (NEG) Urine Nitrite Positive (NEG) Urine Bilirubin Negative (NEG) Urine Urobilinogen Dipstick 1.0 mg/dL (0.2 mg/dL) Urine Leukocyte Esterase Large (NEG) Urine RBC Occ /HPF (0-2) Urine WBC >40 /HPF (0-4) Urine Squamous Epithelial Cells Occ /LPF Urine Bacteria Many /HPF (0-FEW) White Blood Count 20.7 x10^3/uL (4.0-11.0) 16.2 x10^3/uL (4.0-11.0) Red Blood Count 4.50 x10^6/uL (4.30-5.70) 3.71 x10^6/uL (4.30-5.70) Hemoglobin 13.6 g/dL (13.0-17.5) 11.3 g/dL (13.0-17.5) Hematocrit 40.2 % (39.0-53.0) 33.5 % (39.0-53.0) Mean Corpuscular Volume 89 fL (79-100) 90 fL (79-100) Mean Corpuscular Hemoglobin 30 pg (25-35) 31 pg (25-35) Mean Corpuscular Hemoglobin Concent 34 g/dL (31-37) 34 g/dL (31-37) Red Cell Distribution Width 14.9 % (11.5-14.5) 15.2 % (11.5-14.5) Platelet Count 232 x10^3/uL (140-400) 166 x10^3/uL (140-400) Neutrophils (%) (Auto) 85 % (31-73) 81 % (31-73) Lymphocytes (%) (Auto) 4 % (24-48) 9 % (24-48) Monocytes (%) (Auto) 11 % (0-9) 10 % (0-9) Eosinophils (%) (Auto) 0 % (0-3) 0 % (0-3) Basophils (%) (Auto) 0 % (0-3) 1 % (0-3) Neutrophils # (Auto) 17.6 x10^3uL (1.8-7.7) 13.1 x10^3uL (1.8-7.7) Lymphocytes # (Auto) 0.9 x10^3/uL (1.0-4.8) 1.4 x10^3/uL (1.0-4.8) Monocytes # (Auto) 2.2 x10^3/uL (0.0-1.1) 1.5 x10^3/uL (0.0-1.1) Eosinophils # (Auto) 0.0 x10^3/uL (0.0-0.7) 0.0 x10^3/uL (0.0-0.7) Basophils # (Auto) 0.0 x10^3/uL (0.0-0.2) 0.1 x10^3/uL (0.0-0.2) Segmented Neutrophils % 75 % (35-66) Band Neutrophils % 7 % (0-9) Lymphocytes % 6 % (24-48) Monocytes % 12 % (0-10) Toxic Granulation Slight Platelet Estimate Adequate (ADEQUATE) Sodium Level 138 mmol/L (136-145) 137 mmol/L (136-145) Potassium Level 4.1 mmol/L (3.5-5.1) 4.2 mmol/L (3.5-5.1) Chloride Level 101 mmol/L (98-107) 104 mmol/L (98-107) Carbon Dioxide Level 25 mmol/L (21-32) 24 mmol/L (21-32) Anion Gap 12 (6-14) 9 (6-14) Blood Urea Nitrogen 39 mg/dL (8-26) 31 mg/dL (8-26) Creatinine 2.2 mg/dL (0.7-1.3) 1.8 mg/dL (0.7-1.3) Estimated GFR (Cockcroft-Gault) 29.7 37.4 BUN/Creatinine Ratio 18 (6-20) Glucose Level 110 mg/dL (70-99) 107 mg/dL (70-99) Calcium Level 9.0 mg/dL (8.5-10.1) 8.3 mg/dL (8.5-10.1) Magnesium Level 1.9 mg/dL (1.8-2.4) Total Bilirubin 1.8 mg/dL (0.2-1.0) Aspartate Amino Transf (AST/SGOT) 16 U/L (15-37) Alanine Aminotransferase (ALT/SGPT) 20 U/L (16-63) Alkaline Phosphatase 70 U/L (46-116) Troponin I Quantitative < 0.017 ng/mL (0.000-0.055) PM-Opu-T-Type Natriuretic Peptide 5531 pg/mL (0-124) Total Protein 7.3 g/dL (6.4-8.2) Albumin 3.2 g/dL (3.4-5.0) Albumin/Globulin Ratio 0.8 (1.0-1.7) Thyroid Stimulating Hormone (TSH) 1.746 uIU/mL (0.358-3.74) Lactic Acid Level 2.3 mmol/L (0.4-2.0) Medications Current Medications Tamsulosin HCl (Flomax) 0.4 mg 1X ONCE PO Last administered on 01/12/18at 11: 50; Start 01/12/18 at 11:00; Stop 01/12/18 at 11:01; Status DC Albuterol/ Ipratropium (Duoneb) 3 ml 1X ONCE NEB Last administered on at 11:33; Start 01/12/18 at 11:00; Stop 01/12/18 at 11:01; Status DC Acetaminophen/ Hydrocodone Bitart (Lortab 5/325) 1 tab 1X ONCE PO Last administered on 01/12/18at 11:51; Start 01/12/18 at 11:30; Stop 01/12/18 at 11 :33; Status DC Ceftriaxone Sodium 50 ml @ 100 mls/hr 1X ONCE IV Last administered on at 12:15; Start 01/12/18 at 12:15; Stop 01/12/18 at 12:44; Status DC Morphine Sulfate (Morphine Sulfate) 5 mg 1X ONCE IV Last administered on 01/12at 13:05; Start 01/12/18 at 13:15; Stop 01/12/18 at 13:16; Status DC Sodium Chloride 1,000 ml @ 1,000 mls/hr 1X ONCE IV Last administered on 01/12at 14:31; Start 01/12/18 at 14:30; Stop 01/12/18 at 15:29; Status DC Ondansetron HCl (Zofran) 4 mg PRN Q8HRS PRN IV NAUSEA/VOMITING Last administered on 01/12/18 21:11; Start 01/12/18 at 14:30; Stop 01/13/18 at 14 :29 Morphine Sulfate (Morphine Sulfate) 4 mg PRN Q2HR PRN IV PAIN; Start 01/12/18 at 14:30; Stop 01/13/18 at 14:29 Acetaminophen (Tylenol) 650 mg PRN Q4HRS PRN PO FEVER; Start 01/12/18 at 14:30 ; Stop 01/13/18 at 14:29 Sodium Chloride 1,000 ml @ 75 mls/hr [id number] IV Last administered on at 05:15; Start 01/12/18 at 14:30 Ciprofloxacin/ Dextrose 200 ml @ 200 mls/hr Q12HR IV Last administered on at 08:08; Start 01/12/18 at 21:00 Tamsulosin HCl (Flomax) 0.4 mg DAILY PO Last administered on 01/13/18at 08:09; Start 01/13/18 at 09:00 Ondansetron HCl (Zofran) 4 mg 1X ONCE IV Last administered on 01/12/18at 14:31 ; Start 01/12/18 at 14:30; Stop 01/12/18 at 14:31; Status DC Aspirin (Ecotrin) 325 mg DAILY PO Last administered on 01/13/18at 08:08; Start 01/13/18 at 09:00 Atorvastatin Calcium (Lipitor) 20 mg QHS PO Last administered on 01/12/18at 20: 31; Start 01/12/18 at 21:00 Metoprolol Succinate (Toprol Xl) 25 mg HS PO ; Start 01/12/18 at 21:00 Pantoprazole Sodium (Protonix) 40 mg DAILYAC PO Last administered on at 08:08; Start 01/13/18 at 07:30 Lisinopril (Prinivil) 2.5 mg DAILY PO ; Start 01/13/18 at 09:00 Oxycodone/ Acetaminophen (Percocet 5/325) 2 tab PRN Q4HRS PRN PO MODERATE PAIN , 2ND CHOICE Last administered on 01/12/18at 20:30; Start 01/12/18 at 17:45 Tamsulosin HCl (Flomax) 0.4 mg QHS PO Last administered on 11/12/18at 20:31; Start 01/12/18 at 21:00 Sodium Chloride 1,000 ml @ 75 mls/hr [id number] IV ; Start 01/12/18 at 17:45; Stop 01/12/18 at 19:12; Status DC Promethazine HCl/ Codeine (Phenergan With Codeine Oral Syrup) 5 ml PRN Q4HRS PRN PO COUGH Last administered on 01/13/18at 08:08; Start 01/12/18 at 20:45 Promethazine HCl/ Codeine (Phenergan With Codeine Oral Syrup) 10 ml PRN Q4HRS PRN PO COUGH; Start 01/12/18 at 20:45 Sodium Chloride 500 ml @ 500 mls/hr 1X ONCE IV Last administered on at 05:19; Start 01/13/18 at 05:30; Stop 01/13/18 at 06:29; Status DC Influenza Virus Vaccine (Afluria Trivalent [id number] Syringe) 0.5 ml ONCE ONCE VAX IM ; Start 01/13/18 at 11:00; Stop 01/13/18 at 11:01 Active Scripts Active [Oxycodone Hcl/Acetaminophen] 1 TAB Tablet 2 Tab PO PRN Q4HRS PRN Plavix (Clopidogrel Bisulfate) 75 Mg Tablet 75 Mg PO [id number] Lipitor (Atorvastatin Calcium) 20 Mg Tablet 20 Mg PO QHS Reported Lisinopril 2.5 Mg Tablet 2.5 Mg PO DAILY Metoprolol Succinate ( Xl ) (Metoprolol Succinate) 25 Mg Tab.er.24h 25 Mg PO HS Protonix (Pantoprazole Sodium) 40 Mg Tablet.dr 40 Mg PO DAILY Oxycodone-Acetaminophen 5-325 (Oxycodone Hcl/Acetaminophen) 1 Each Tablet 2 Each PO Q6HRS PRN Aspirin Ec (Aspirin) 325 Mg Tablet.dr 1 Tab PO DAILY Vitals/I & O Vital Sign - Last 24 Hours 01/12/18 01/12/18 01/12/18 01/12/18 10:15 11:00 11:33 12:00 Temp 99.2 99.2 Pulse 93 82 79 Resp 16 16 18 B/P (MAP) 118/55 (76) 131/78 (95) 136/84 (101) Pulse Ox 97 99 96 99 O2 Delivery Room Air Room Air Room Air Room Air 01/12/18 01/12/18 01/12/18 01/12/18 13:00 13:05 14:00 15:00 Pulse 72 72 78 Resp 18 16 18 16 B/P (MAP) 142/81 (101) 137/83 (101) 122/88 (99) Pulse Ox 99 99 99 99 O2 Delivery Room Air Room Air Room Air 01/12/18 01/12/18 01/12/18 01/12/18 15:45 15:45 19:15 20:00 Temp 97.7 99.7 97.7 99.7 Pulse 91 99 Resp 18 20 B/P (MAP) 107/55 (72) 92/40 (57) Pulse Ox 97 98 O2 Delivery Room Air Room Air Room Air Room Air 01/12/18 01/12/18 01/12/18 01/12/18 20:14 20:30 21:30 23:15 Temp 99.3 99.3 Pulse 99 83 Resp 20 B/P (MAP) 92/40 105/50 (68) Pulse Ox 96 O2 Delivery Room Air Room Air Room Air 01/13/18 01/13/18 01/13/18 01/13/18 03:20 04:40 06:24 07:00 Temp 97.6 97.7 97.6 97.7 Pulse 75 68 65 Resp 18 20 B/P (MAP) 91/48 (62) 87/51 (63) 102/51 (68) 95/56 (69) Pulse Ox 95 95 O2 Delivery Room Air Room Air 01/13/18 01/13/18 07:22 08:09 Pulse 65 B/P (MAP) 95/56 O2 Delivery Room Air Intake and Output 01/12/18 01/12/18 01/13/18 15:00 23:00 07:00 Intake Total 240 ml 600 ml Output Total 950 ml Balance 240 ml -350 ml MARC LEE III DO Jan 13, 2018 09:50
--- NOTE | 2018-01-13 11:01 | PDOC2 ---
CONSULT Date of Consult Date of Consult DATE: 01/13/18 TIME: 10:55 Reason for Consult Reason for Consult: ALETA Referring Physician Referring Physician: ROSA Identification/Chief Complaint Chief Complaint CANT URINATE Source Source: Chart review, Patient History of Present Illness Reason for Visit: THIS IS A 72 YR OLD WITH SEVERAL DAY HX OF NOT BEING ABLE TO URINATE WELL. ON ADMIT HAD RETENTION OF ABOUT ONE LITER. CR OF 2.2. USUAL BASELINE CR IS ABOUT 1.2-1.3 C/W STAGE 3 CKD. UTI NOTED WITH POSSIBLE PYELONEPHRITIS. HAS HX OF HTN AND BPH. NO NSAIDS OR OTHER NEPHROTOXINS. NO OTHER HX Past Medical History Cardiovascular: CAD, CHF, HTN, Hyperlipidemia Pulmonary: COPD CENTRAL NERVOUS SYSTEM: Other GI: GERD Heme/Onc: No pertinent hx Hepatobiliary: No pertinent hx Psych: No pertinent hx Musculoskeletal: Osteoarthritis Rheumatologic: No pertinent hx Infectious disease: No pertinent hx Renal/: Chronic renal insuff, Benign prostatic enlarg. Endocrine: No pertinent hx Past Surgical History Past Surgical History: Other Family History Family History: Hypertension Social History Quit (2 weeks ago) ALCOHOL: none Drugs: None Lives: with Family Current Problem List Problem List Problems Medical Problems: (1) Acute on chronic renal failure Status: Acute (2) Chronic shortness of breath Status: Acute (3) Leukocytosis Status: Acute Current Medications Current Medications Current Medications Tamsulosin HCl (Flomax) 0.4 mg 1X ONCE PO Last administered on 01/12/18at 11: 50; Start 01/12/18 at 11:00; Stop 01/12/18 at 11:01; Status DC Albuterol/ Ipratropium (Duoneb) 3 ml 1X ONCE NEB Last administered on at 11:33; Start 01/12/18 at 11:00; Stop 01/12/18 at 11:01; Status DC Acetaminophen/ Hydrocodone Bitart (Lortab 5/325) 1 tab 1X ONCE PO Last administered on 01/12/18at 11:51; Start 01/12/18 at 11:30; Stop 01/12/18 at 11 :33; Status DC Ceftriaxone Sodium 50 ml @ 100 mls/hr 1X ONCE IV Last administered on at 12:15; Start 01/12/18 at 12:15; Stop 01/12/18 at 12:44; Status DC Morphine Sulfate (Morphine Sulfate) 5 mg 1X ONCE IV Last administered on 01/12at 13:05; Start 01/12/18 at 13:15; Stop 01/12/18 at 13:16; Status DC Sodium Chloride 1,000 ml @ 1,000 mls/hr 1X ONCE IV Last administered on 01/12at 14:31; Start 01/12/18 at 14:30; Stop 01/12/18 at 15:29; Status DC Ondansetron HCl (Zofran) 4 mg PRN Q8HRS PRN IV NAUSEA/VOMITING Last administered on 01/12/18at 21:11; Start 01/12/18 at 14:30; Stop 01/13/18 at 14 :29 Morphine Sulfate (Morphine Sulfate) 4 mg PRN Q2HR PRN IV PAIN; Start 01/12/18 at 14:30; Stop 01/13/18 at 14:29 Acetaminophen (Tylenol) 650 mg PRN Q4HRS PRN PO FEVER; Start 01/12/18 at 14:30 ; Stop 01/13/18 at 14:29 Sodium Chloride 1,000 ml @ 75 mls/hr [id number] IV Last administered on at 05:15; Start 01/12/18 at 14:30 Ciprofloxacin/ Dextrose 200 ml @ 200 mls/hr Q12HR IV Last administered on at 08:08; Start 01/12/18 at 21:00 Tamsulosin HCl (Flomax) 0.4 mg DAILY PO Last administered on 01/13/18at 08:09; Start 01/13/18 at 09:00 Ondansetron HCl (Zofran) 4 mg 1X ONCE IV Last administered on 01/12/18at 14:31 ; Start 01/12/18 at 14:30; Stop 01/12/18 at 14:31; Status DC Aspirin (Ecotrin) 325 mg DAILY PO Last administered on 01/13/18at 08:08; Start 01/13/18 at 09:00 Atorvastatin Calcium (Lipitor) 20 mg QHS PO Last administered on 01/12/18at 20: 31; Start 01/12/18 at 21:00 Metoprolol Succinate (Toprol Xl) 25 mg HS PO ; Start 01/12/18 at 21:00 Pantoprazole Sodium (Protonix) 40 mg DAILYAC PO Last administered on at 08:08; Start 01/13/18 at 07:30 Lisinopril (Prinivil) 2.5 mg DAILY PO ; Start 01/13/18 at 09:00 Oxycodone/ Acetaminophen (Percocet 5/325) 2 tab PRN Q4HRS PRN PO MODERATE PAIN , 2ND CHOICE Last administered on 01/12/18at 20:30; Start 01/12/18 at 17:45 Tamsulosin HCl (Flomax) 0.4 mg QHS PO Last administered on 01/12/18at 20:31; Start 01/12/18 at 21:00 Sodium Chloride 1,000 ml @ 75 mls/hr [id number] IV ; Start 01/12/18 at 17:45; Stop 01/12/18 at 19:12; Status DC Promethazine HCl/ Codeine (Phenergan With Codeine Oral Syrup) 5 ml PRN Q4HRS PRN PO COUGH Last administered on 01/13/18at 08:08; Start 01/12/18 at 20:45 Promethazine HCl/ Codeine (Phenergan With Codeine Oral Syrup) 10 ml PRN Q4HRS PRN PO COUGH; Start 01/12/18 at 20:45 Sodium Chloride 500 ml @ 500 mls/hr 1X ONCE IV Last administered on at 05:19; Start 01/13/18 at 05:30; Stop 01/13/18 at 06:29; Status DC Influenza Virus Vaccine (Afluria Trivalent [id number] Syringe) 0.5 ml ONCE ONCE VAX IM Last administered on 01/13/18at 09:45; Start 01/13/18 at 11:00; Stop 01/13/18 at 11:01 Lactobacillus Rhamnosus (Culturelle) 1 cap BID PO ; Start 01/13/18 at 21:00 Active Scripts Active [Oxycodone Hcl/Acetaminophen] 1 TAB Tablet 2 Tab PO PRN Q4HRS PRN Plavix (Clopidogrel Bisulfate) 75 Mg Tablet 75 Mg PO [id number] Lipitor (Atorvastatin Calcium) 20 Mg Tablet 20 Mg PO QHS Reported Lisinopril 2.5 Mg Tablet 2.5 Mg PO DAILY Metoprolol Succinate ( Xl ) (Metoprolol Succinate) 25 Mg Tab.er.24h 25 Mg PO HS Protonix (Pantoprazole Sodium) 40 Mg Tablet. 40 Mg PO DAILY Oxycodone-Acetaminophen 5-325 (Oxycodone Hcl/Acetaminophen) 1 Each Tablet 2 Each PO Q6HRS PRN Aspirin Ec (Aspirin) 325 Mg Tablet.dr 1 Tab PO DAILY Allergies Allergies: Coded Allergies: No Known Drug Allergies (Unverified , 11/04/14) ROS General: YES: Fatigue, Malaise, Appetite PSYCHOLOGICAL ROS: YES: Anxiety Eyes: Yes Decreased vision HEENT: YES: Heacaches Respiratory: YES: Cough Gastrointestinal: Yes Nausea Genitourinary: YES Retention Musculoskeletal: Yes Muscular Weakness Neurological: Yes Weakness Skin: Yes Dry Skin Physical Exam General: Alert, Oriented X3, Cooperative, No acute distress HEENT: Atraumatic, PERRLA, EOMI, Mucous membr. moist/pink Lungs: Clear to auscultation Heart: Regular rate, Normal S1, Normal S2 Abdomen: Normal bowel sounds, Soft Extremities: No clubbing Skin: No rashes Neuro: Normal speech, Cranial nerves 3-12 NL Psych/Mental Status: Mental status NL, Mood NL MUSCULOSKELETAL: No deformity, No swelling Vitals VITALS Vital Signs Date Time Temp Pulse Resp B/P (MAP) Pulse Ox O2 Delivery O2 Flow Rate FiO2 01/13/18 08:09 65 95/56 01/13/18 07:22 Room Air 01/13/18 07:00 97.7 20 95 97.7 Labs Labs Laboratory Tests Test 01/12/18 11:00 01/12/18 11:45 01/12/18 15:07 01/13/18 05:35 Urine Collection Type Unknown Urine Color Yellow Urine Clarity Turbid Urine pH 6.0 Urine Specific [place] 1.020 Urine Protein 30 mg/dL (NEG-TRACE) Urine Glucose (UA) Negative mg/dL (NEG) Urine Ketones (Stick) Negative mg/dL (NEG) Urine Blood Moderate (NEG) Urine Nitrite Positive (NEG) Urine Bilirubin Negative (NEG) Urine Urobilinogen Dipstick 1.0 mg/dL (0.2 mg/dL) Urine Leukocyte Esterase Large (NEG) Urine RBC Occ /HPF (0-2) Urine WBC >40 /HPF (0-4) Urine Squamous Epithelial Cells Occ /LPF Urine Bacteria Many /HPF (0-FEW) White Blood Count 20.7 x10^3/uL (4.0-11.0) 16.2 x10^3/uL (4.0-11.0) Red Blood Count 4.50 x10^6/uL (4.30-5.70) 3.71 x10^6/uL (4.30-5.70) Hemoglobin 13.6 g/dL (13.0-17.5) 11.3 g/dL (13.0-17.5) Hematocrit 40.2 % (39.0-53.0) 33.5 % (39.0-53.0) Mean Corpuscular Volume 89 fL (79-100) 90 fL (79-100) Mean Corpuscular Hemoglobin 30 pg (25-35) 31 pg (25-35) Mean Corpuscular Hemoglobin Concent 34 g/dL (31-37) 34 g/dL (31-37) Red Cell Distribution Width 14.9 % (11.5-14.5) 15.2 % (11.5-14.5) Platelet Count 232 x10^3/uL (140-400) 166 x10^3/uL (140-400) Neutrophils (%) (Auto) 85 % (31-73) 81 % (31-73) Lymphocytes (%) (Auto) 4 % (24-48) 9 % (24-48) Monocytes (%) (Auto) 11 % (0-9) 10 % (0-9) Eosinophils (%) (Auto) 0 % (0-3) 0 % (0-3) Basophils (%) (Auto) 0 % (0-3) 1 % (0-3) Neutrophils # (Auto) 17.6 x10^3uL (1.8-7.7) 13.1 x10^3uL (1.8-7.7) Lymphocytes # (Auto) 0.9 x10^3/uL (1.0-4.8) 1.4 x10^3/uL (1.0-4.8) Monocytes # (Auto) 2.2 x10^3/uL (0.0-1.1) 1.5 x10^3/uL (0.0-1.1) Eosinophils # (Auto) 0.0 x10^3/uL (0.0-0.7) 0.0 x10^3/uL (0.0-0.7) Basophils # (Auto) 0.0 x10^3/uL (0.0-0.2) 0.1 x10^3/uL (0.0-0.2) Segmented Neutrophils % 75 % (35-66) Band Neutrophils % 7 % (0-9) Lymphocytes % 6 % (24-48) Monocytes % 12 % (0-10) Toxic Granulation Slight Platelet Estimate Adequate (ADEQUATE) Sodium Level 138 mmol/L (136-145) 137 mmol/L (136-145) Potassium Level 4.1 mmol/L (3.5-5.1) 4.2 mmol/L (3.5-5.1) Chloride Level 101 mmol/L (98-107) 104 mmol/L (98-107) Carbon Dioxide Level 25 mmol/L (21-32) 24 mmol/L (21-32) Anion Gap 12 (6-14) 9 (6-14) Blood Urea Nitrogen 39 mg/dL (8-26) 31 mg/dL (8-26) Creatinine 2.2 mg/dL (0.7-1.3) 1.8 mg/dL (0.7-1.3) Estimated GFR (Cockcroft-Gault) 29.7 37.4 BUN/Creatinine Ratio 18 (6-20) Glucose Level 110 mg/dL (70-99) 107 mg/dL (70-99) Calcium Level 9.0 mg/dL (8.5-10.1) 8.3 mg/dL (8.5-10.1) Magnesium Level 1.9 mg/dL (1.8-2.4) Total Bilirubin 1.8 mg/dL (0.2-1.0) Aspartate Amino Transf (AST/SGOT) 16 U/L (15-37) Alanine Aminotransferase (ALT/SGPT) 20 U/L (16-63) Alkaline Phosphatase 70 U/L (46-116) Troponin I Quantitative < 0.017 ng/mL (0.000-0.055) JD-Apd-A-Type Natriuretic Peptide 5531 pg/mL (0-124) Total Protein 7.3 g/dL (6.4-8.2) Albumin 3.2 g/dL (3.4-5.0) Albumin/Globulin Ratio 0.8 (1.0-1.7) Thyroid Stimulating Hormone (TSH) 1.746 uIU/mL (0.358-3.74) Lactic Acid Level 2.3 mmol/L (0.4-2.0) Laboratory Tests Test 01/12/18 11:00 01/12/18 11:45 01/12/18 15:07 01/13/18 05:35 Urine Collection Type Unknown Urine Color Yellow Urine Clarity Turbid Urine pH 6.0 Urine Specific [place] 1.020 Urine Protein 30 mg/dL (NEG-TRACE) Urine Glucose (UA) Negative mg/dL (NEG) Urine Ketones (Stick) Negative mg/dL (NEG) Urine Blood Moderate (NEG) Urine Nitrite Positive (NEG) Urine Bilirubin Negative (NEG) Urine Urobilinogen Dipstick 1.0 mg/dL (0.2 mg/dL) Urine Leukocyte Esterase Large (NEG) Urine RBC Occ /HPF (0-2) Urine WBC >40 /HPF (0-4) Urine Squamous Epithelial Cells Occ /LPF Urine Bacteria Many /HPF (0-FEW) White Blood Count 20.7 x10^3/uL (4.0-11.0) 16.2 x10^3/uL (4.0-11.0) Red Blood Count 4.50 x10^6/uL (4.30-5.70) 3.71 x10^6/uL (4.30-5.70) Hemoglobin 13.6 g/dL (13.0-17.5) 11.3 g/dL (13.0-17.5) Hematocrit 40.2 % (39.0-53.0) 33.5 % (39.0-53.0) Mean Corpuscular Volume 89 fL (79-100) 90 fL (79-100) Mean Corpuscular Hemoglobin 30 pg (25-35) 31 pg (25-35) Mean Corpuscular Hemoglobin Concent 34 g/dL (31-37) 34 g/dL (31-37) Red Cell Distribution Width 14.9 % (11.5-14.5) 15.2 % (11.5-14.5) Platelet Count 232 x10^3/uL (140-400) 166 x10^3/uL (140-400) Neutrophils (%) (Auto) 85 % (31-73) 81 % (31-73) Lymphocytes (%) (Auto) 4 % (24-48) 9 % (24-48) Monocytes (%) (Auto) 11 % (0-9) 10 % (0-9) Eosinophils (%) (Auto) 0 % (0-3) 0 % (0-3) Basophils (%) (Auto) 0 % (0-3) 1 % (0-3) Neutrophils # (Auto) 17.6 x10^3uL (1.8-7.7) 13.1 x10^3uL (1.8-7.7) Lymphocytes # (Auto) 0.9 x10^3/uL (1.0-4.8) 1.4 x10^3/uL (1.0-4.8) Monocytes # (Auto) 2.2 x10^3/uL (0.0-1.1) 1.5 x10^3/uL (0.0-1.1) Eosinophils # (Auto) 0.0 x10^3/uL (0.0-0.7) 0.0 x10^3/uL (0.0-0.7) Basophils # (Auto) 0.0 x10^3/uL (0.0-0.2) 0.1 x10^3/uL (0.0-0.2) Segmented Neutrophils % 75 % (35-66) Band Neutrophils % 7 % (0-9) Lymphocytes % 6 % (24-48) Monocytes % 12 % (0-10) Toxic Granulation Slight Platelet Estimate Adequate (ADEQUATE) Sodium Level 138 mmol/L (136-145) 137 mmol/L (136-145) Potassium Level 4.1 mmol/L (3.5-5.1) 4.2 mmol/L (3.5-5.1) Chloride Level 101 mmol/L (98-107) 104 mmol/L (98-107) Carbon Dioxide Level 25 mmol/L (21-32) 24 mmol/L (21-32) Anion Gap 12 (6-14) 9 (6-14) Blood Urea Nitrogen 39 mg/dL (8-26) 31 mg/dL (8-26) Creatinine 2.2 mg/dL (0.7-1.3) 1.8 mg/dL (0.7-1.3) Estimated GFR (Cockcroft-Gault) 29.7 37.4 BUN/Creatinine Ratio 18 (6-20) Glucose Level 110 mg/dL (70-99) 107 mg/dL (70-99) Calcium Level 9.0 mg/dL (8.5-10.1) 8.3 mg/dL (8.5-10.1) Magnesium Level 1.9 mg/dL (1.8-2.4) Total Bilirubin 1.8 mg/dL (0.2-1.0) Aspartate Amino Transf (AST/SGOT) 16 U/L (15-37) Alanine Aminotransferase (ALT/SGPT) 20 U/L (16-63) Alkaline Phosphatase 70 U/L (46-116) Troponin I Quantitative < 0.017 ng/mL (0.000-0.055) YK-Tsp-K-Type Natriuretic Peptide 5531 pg/mL (0-124) Total Protein 7.3 g/dL (6.4-8.2) Albumin 3.2 g/dL (3.4-5.0) Albumin/Globulin Ratio 0.8 (1.0-1.7) Thyroid Stimulating Hormone (TSH) 1.746 uIU/mL (0.358-3.74) Lactic Acid Level 2.3 mmol/L (0.4-2.0) Assessment/Plan Assessment/Plan IMP ALETA CR OF 2.2 CKD STAGE 3 WITH CR OF 1.2-1.3 URINARY RETENTION PROSTATOMEGALY UTI/POSSIBLE PYELONEPHRITIS PLAN REAL UROLOGY EVAL ANTIBIOTICS IVF'S HOLD BECKY-I IF CR NOT IMPROVING WILL FOLLOW SOLIS VALLE MD Jan 13, 2018 11:01
--- NOTE | 2018-01-13 17:16 | RAD ---
CT CHEST WO CONTRAST dated 01/13/2018 2:06 PM Indication: Pulmonary nodule, chronic shortness of breathF/U NODULE.
. Comparison: Chest x-ray dated 01/12/2018. CT abdomen dated 01/12/2018. Technique: Contiguous axial imaging of the chest performed without the administration of intravenous contrast. One or more of the following individualized dose reduction techniques were utilized for this examination: 1. Automated exposure control 2. Adjustment of the mA and/or kV according to patient size 3. Use of iterative reconstruction technique Findings: Linear bands of increased density in the bilateral lower lobes and lingula, likely scar or atelectasis. There is also some thickening of the major fissure on the right. No consolidation or pleural effusion. No pneumothorax. There is mild emphysema. Mild diffuse bronchial wall thickening. Heart size within normal limits. Extensive coronary artery calcifications status post CABG procedure. Mild ectasia of the ascending thoracic aorta measuring 3.8 cm transverse. No mediastinal, hilar or axillary lymphadenopathy. Borderline enlarged subcarinal lymph node measures 9 mm short axis. Thyroid gland unremarkable. Limited images of the upper abdomen show a couple of vague low-density lesions in the left lobe liver on images 59 and 60, measuring up to 10 mm maximum dimension. These are not well evaluated in the absence of contrast material. Spleen is normal in size. Pancreas is somewhat atrophic. Bone windows show no acute findings. Multilevel spondylosis. There is evidence of prior vertebroplasty at L2. Multilevel spondylosis. Prominent anterior osteophytes with partial fusion. IMPRESSION: 1. No suspicious pulmonary nodule or mass. 2. Bibasilar scar or atelectasis with diffuse bronchial wall thickening. 3. Mild emphysema. 4. Mild ectasia of the ascending thoracic aorta. 5. Indeterminate small low-density nodules in the liver, stable from prior exam. Electronically signed by: Steve Nixon MD (01/13/2018 5:12 PM) [facility]
[2018-01-13] MEDS: LACTOBACILLUS RHAMNOSUS GG 1 CAPSULE. PO SCH (20:22)
[2018-01-13] MEDS: ATORVASTATIN CALCIUM 20 MG TABLET PO SCH (20:23)
[2018-01-13] MEDS: METOPROLOL SUCC 24HR ER 25 MG TAB.ER.24H. PO SCH (21:00)
[2018-01-13] MEDS: ZOLPIDEM 5 MG TABLET. PO PRN (22:24)
[2018-01-14] MEDS: ACETAMINOPHEN 325 MG TABLET. PO PRN ×2 (00:32→20:03)
[2018-01-14 03:05] VITALS: BP 94/45
[2018-01-14 06:18] LABS: CALCIUM 8.1 mg/dL (8.5-10.1); CREATININE 1.7 mg/dL (0.7-1.3); GFR 39.9; MAGNESIUM 1.8 mg/dL (1.8-2.4); POTASSIUM 4.2 mmol/L (3.5-5.1)
[2018-01-14 07:00] VITALS: BP 116/67
[2018-01-14] MEDS: LISINOPRIL 5 MG TABLET. PO SCH (08:36)
[2018-01-14] MEDS: PANTOPRAZOLE 40 MG TABLET.DR. PO SCH (08:36)
[2018-01-14] MEDS: ASPIRIN ENTERIC COATED 325 MG TABLET.DR. PO SCH (08:36)
[2018-01-14] MEDS: TAMSULOSIN 0.4 MG CAP.ER.24H. PO SCH ×2 (08:37→20:04)
[2018-01-14] MEDS: LACTOBACILLUS RHAMNOSUS GG 1 CAPSULE. PO SCH ×2 (08:37→20:03)
[2018-01-14] MEDS: IV NORMAL SALINE 1000ML BAG 1,000 ML IV SCH ×2 (08:38→20:16)
[2018-01-14] MEDS: CIPROFLOXACIN 400MG PREMIX 200 ML IV SCH ×2 (08:39→20:04)
--- NOTE | 2018-01-14 09:55 | PDOC ---
Renal-Progress Notes Subjective Notes Notes NONE History of Present Illness Hx of present illness STABLE Vitals Vitals Vital Signs Date Time Temp Pulse Resp B/P (MAP) Pulse Ox O2 Delivery O2 Flow Rate FiO2 01/14/18 08:36 71 116/67 01/14/18 07:13 Room Air 01/14/18 07:00 98.6 16 93 98.6 Weight Weight [ ] I.O. Intake and Output Intake and Output 01/14/18 07:00 Intake Total 700 ml Output Total 1225 ml Balance -525 ml Intake Oral 700 ml Output Urine Total 1225 ml Labs Labs Laboratory Tests Test 01/14/18 05:25 Sodium Level 137 mmol/L (136-145) Potassium Level 4.2 mmol/L (3.5-5.1) Chloride Level 106 mmol/L (98-107) Carbon Dioxide Level 22 mmol/L (21-32) Anion Gap 9 (6-14) Blood Urea Nitrogen 24 mg/dL (8-26) Creatinine 1.7 mg/dL (0.7-1.3) Estimated GFR (Cockcroft-Gault) 39.9 Glucose Level 102 mg/dL (70-99) Calcium Level 8.1 mg/dL (8.5-10.1) Magnesium Level 1.8 mg/dL (1.8-2.4) Micro Micro Microbiology 01/12/18 Urine Culture - Preliminary, Resulted 01/12/18 Urine Culture Result 1 (CHANDRA) - Preliminary, Resulted Review of Systems Constitutional: yes: alert, oriented Ears/Nose/Throat: Yes: no symptom reported Eyes: Yes: no symptom reported Cardiovascular: Yes no symptom reported Gastrointestional: Yes: no symptom reported Genitourinary: Yes: no symptom reported Musculoskeletal: Yes: no symptom reported Skin: Yes no symptom reported Psychiatric/Neurological: Yes: no symptom reported Endocrine: Yes: no symptom reported Physical Exam General Appearance: no apparent distress Skin: warm Respiratory: decreased breath sounds Heart: S1S2 Abdomen: soft, bowel sounds present Genitourinary: bladder flat Extremities: pulses present, no edema Assessment Assessment IMP ALETA-BETTER WITH CR DOWN TO 1.7 URINARY RETENTION UTI BPH PLAN IVF'S REAL ANTIBIOTICS SOLIS VALLE MD Jan 14, 2018 09:55
--- NOTE | 2018-01-14 10:16 | PDOC ---
SUBJECTIVE Subjective Pt had a comfortable night but did spike a fever. Feeling Ok today and catheter is not bothering him. OBJECTIVE Objective Physical Exam: General appearance: Alert and Oriented Head: Normocephalic, without obvious abnormality Eyes: conjunctivae/corneas clear. PERRL, EOM's intact. Fundi benign Lungs: regular respirations, non labored breathing. Pelvic: vora catheter in place draining clear yellow urine. Device in good working order. Vital Signs Vital Signs Date Time Temp Pulse Resp B/P (MAP) Pulse Ox O2 Delivery O2 Flow Rate FiO2 01/14/18 08:36 71 116/67 01/14/18 07:13 Room Air 01/14/18 07:00 98.6 71 16 116/67 (83) 93 Room Air 98.6 01/14/18 03:05 98.7 70 20 94/45 (61) 94 Room Air 98.7 01/13/18 23:27 101.5 85 20 103/44 (63) 95 Room Air 101.5 01/13/18 21:00 81 121/58 01/13/18 20:00 Room Air 01/13/18 19:15 98.2 81 16 121/58 (79) 97 Room Air 98.2 01/13/18 15:00 98.6 81 20 121/54 (76) 95 Room Air 98.6 01/13/18 11:00 97.9 74 20 90/47 (61) 94 Room Air 97.9 I & O Intake and Output 01/14/18 07:00 Intake Total 700 ml Output Total 1225 ml Balance -525 ml Intake Oral 700 ml Output Urine Total 1225 ml PHYSICAL EXAM Physical Exam Physical Exam: General appearance: Alert and Oriented Head: Normocephalic, without obvious abnormality Eyes: conjunctivae/corneas clear. PERRL, EOM's intact. Fundi benign Lungs: regular respirations, non labored breathing. Pelvic: vora catheter in place draining clear yellow urine. Device in good working order. ASSESSMENT/PLAN Assessment/Plan Vora catheter in place: Nursing staff to maintain. Patient will need to discharge with this device in place. Pt had 101.5 fever last night, continue antibiotics. An appointment has been arranged for him to see Dr. Oreilly next week for voiding trial on 01/21/18 at 0940 am at [facility] location Appointment card and patient paperwork given to patient yesterday and he still has this. Will follow peripherally until discharge. Problems: (1) Urinary retention (2) Vora catheter in place COMMENT Lab Laboratory Tests Test 01/14/18 05:25 Sodium Level 137 mmol/L (136-145) Potassium Level 4.2 mmol/L (3.5-5.1) Chloride Level 106 mmol/L (98-107) Carbon Dioxide Level 22 mmol/L (21-32) Anion Gap 9 (6-14) Blood Urea Nitrogen 24 mg/dL (8-26) Creatinine 1.7 mg/dL (0.7-1.3) Estimated GFR (Cockcroft-Gault) 39.9 Glucose Level 102 mg/dL (70-99) Calcium Level 8.1 mg/dL (8.5-10.1) Magnesium Level 1.8 mg/dL (1.8-2.4) GILBERTO ZEE APRN Jan 14, 2018 10:16
[2018-01-14 10:53] VITALS: BP 133/68
--- NOTE | 2018-01-14 11:04 | PDOC ---
PROGRESS NOTES Chief Complaint Chief Complaint Urinary Retention and SOA History of Present Illness History of Present Illness Pt was examined today and reports feeling well. Last night pt had a fever of 101.5 at 2327 (01/13/18). Pt has vora catheter still in place and IV fluids hanging. Discussed possible discharge tomorrow if he remains afebrile and feeling well. Chest CT (01/13) showed Bibasilar scar or atelectasis with diffuse bronchial wall thickening; Mild emphysema; Mild ectasia of the ascending thoracic aorta; Indeterminate small low-density nodules in the liver, stable from prior exam. Pt was seen at bedside. He has no acute overnight events. Pt has voar catheter in place, IV fluids hanging, and Cipro antibiotics IV on board [facility] [facility], she stated that they intend to keep the vora catheter in place for 1 week, at which time the patient is scheduled to follow up at the urology clinic, they plan to do a TURP as some point in the near future. DW patient leaving the vora in for 1 week, and the probable procedure he will undergo with urology to resolve the prostamegaly. Also discussed possible discharge tomorrow AM if WBC has lowered below threshold. Current WBC at 16.2 down from 20. Pt was agreeable to remain in hospital until tomorrow. Vitals Vitals Vital Signs Date Time Temp Pulse Resp B/P (MAP) Pulse Ox O2 Delivery O2 Flow Rate FiO2 01/14/18 08:36 71 116/67 01/14/18 07:13 Room Air 01/14/18 07:00 98.6 16 93 98.6 Physical Exam General: Alert, Oriented X3, Cooperative, No acute distress Heart: Regular rate, Normal S1, Normal S2 Lungs: Clear, Other (no wheezes appreciated on ascultation) Abdomen: Normal bowel sounds, Soft Extremities: No clubbing Skin: No rashes Labs LABS Laboratory Tests Test 01/14/18 05:25 Sodium Level 137 mmol/L (136-145) Potassium Level 4.2 mmol/L (3.5-5.1) Chloride Level 106 mmol/L (98-107) Carbon Dioxide Level 22 mmol/L (21-32) Anion Gap 9 (6-14) Blood Urea Nitrogen 24 mg/dL (8-26) Creatinine 1.7 mg/dL (0.7-1.3) Estimated GFR (Cockcroft-Gault) 39.9 Glucose Level 102 mg/dL (70-99) Calcium Level 8.1 mg/dL (8.5-10.1) Magnesium Level 1.8 mg/dL (1.8-2.4) Review of Systems Review of Systems CV: Denies chest pain, palpitations RESP: No blood in sputum, no wheezing GI: No vomit, no swallowing difficulty. Assessment and Plan Assessmemt and Plan ASSESSMENT: Urinary Retention UTI/Possible Pyelonephritis ALETA Cr of 1.7 CKD Stage 3 Prostatomegaly Chronic SOB PLAN: Recheck labs in am, recheck temperature. Vora catheter to remain when discharged, pt education on maintenance and use Home meds Urology consult Consult PT/OT Possible discharge tomorrow if feeling well and remains afebrile Problems Medical Problems: (1) Acute on chronic renal failure Status: Acute (2) Chronic shortness of breath Status: Acute (3) Leukocytosis Status: Acute Comment Review of Relevant I have reviewed the following items lyndon (where applicable) has been applied. Labs Laboratory Tests Test 01/12/18 11:00 01/12/18 11:45 01/12/18 15:07 01/13/18 05:35 Urine Collection Type Unknown Urine Color Yellow Urine Clarity Turbid Urine pH 6.0 Urine Specific [place] 1.020 Urine Protein 30 mg/dL (NEG-TRACE) Urine Glucose (UA) Negative mg/dL (NEG) Urine Ketones (Stick) Negative mg/dL (NEG) Urine Blood Moderate (NEG) Urine Nitrite Positive (NEG) Urine Bilirubin Negative (NEG) Urine Urobilinogen Dipstick 1.0 mg/dL (0.2 mg/dL) Urine Leukocyte Esterase Large (NEG) Urine RBC Occ /HPF (0-2) Urine WBC >40 /HPF (0-4) Urine Squamous Epithelial Cells Occ /LPF Urine Bacteria Many /HPF (0-FEW) White Blood Count 20.7 x10^3/uL (4.0-11.0) 16.2 x10^3/uL (4.0-11.0) Red Blood Count 4.50 x10^6/uL (4.30-5.70) 3.71 x10^6/uL (4.30-5.70) Hemoglobin 13.6 g/dL (13.0-17.5) 11.3 g/dL (13.0-17.5) Hematocrit 40.2 % (39.0-53.0) 33.5 % (39.0-53.0) Mean Corpuscular Volume 89 fL (79-100) 90 fL (79-100) Mean Corpuscular Hemoglobin 30 pg (25-35) 31 pg (25-35) Mean Corpuscular Hemoglobin Concent 34 g/dL (31-37) 34 g/dL (31-37) Red Cell Distribution Width 14.9 % (11.5-14.5) 15.2 % (11.5-14.5) Platelet Count 232 x10^3/uL (140-400) 166 x10^3/uL (140-400) Neutrophils (%) (Auto) 85 % (31-73) 81 % (31-73) Lymphocytes (%) (Auto) 4 % (24-48) 9 % (24-48) Monocytes (%) (Auto) 11 % (0-9) 10 % (0-9) Eosinophils (%) (Auto) 0 % (0-3) 0 % (0-3) Basophils (%) (Auto) 0 % (0-3) 1 % (0-3) Neutrophils # (Auto) 17.6 x10^3uL (1.8-7.7) 13.1 x10^3uL (1.8-7.7) Lymphocytes # (Auto) 0.9 x10^3/uL (1.0-4.8) 1.4 x10^3/uL (1.0-4.8) Monocytes # (Auto) 2.2 x10^3/uL (0.0-1.1) 1.5 x10^3/uL (0.0-1.1) Eosinophils # (Auto) 0.0 x10^3/uL (0.0-0.7) 0.0 x10^3/uL (0.0-0.7) Basophils # (Auto) 0.0 x10^3/uL (0.0-0.2) 0.1 x10^3/uL (0.0-0.2) Segmented Neutrophils % 75 % (35-66) Band Neutrophils % 7 % (0-9) Lymphocytes % 6 % (24-48) Monocytes % 12 % (0-10) Toxic Granulation Slight Platelet Estimate Adequate (ADEQUATE) Sodium Level 138 mmol/L (136-145) 137 mmol/L (136-145) Potassium Level 4.1 mmol/L (3.5-5.1) 4.2 mmol/L (3.5-5.1) Chloride Level 101 mmol/L (98-107) 104 mmol/L (98-107) Carbon Dioxide Level 25 mmol/L (21-32) 24 mmol/L (21-32) Anion Gap 12 (6-14) 9 (6-14) Blood Urea Nitrogen 39 mg/dL (8-26) 31 mg/dL (8-26) Creatinine 2.2 mg/dL (0.7-1.3) 1.8 mg/dL (0.7-1.3) Estimated GFR (Cockcroft-Gault) 29.7 37.4 BUN/Creatinine Ratio 18 (6-20) Glucose Level 110 mg/dL (70-99) 107 mg/dL (70-99) Calcium Level 9.0 mg/dL (8.5-10.1) 8.3 mg/dL (8.5-10.1) Magnesium Level 1.9 mg/dL (1.8-2.4) Total Bilirubin 1.8 mg/dL (0.2-1.0) Aspartate Amino Transf (AST/SGOT) 16 U/L (15-37) Alanine Aminotransferase (ALT/SGPT) 20 U/L (16-63) Alkaline Phosphatase 70 U/L (46-116) Troponin I Quantitative < 0.017 ng/mL (0.000-0.055) CB-Goa-U-Type Natriuretic Peptide 5531 pg/mL (0-124) Total Protein 7.3 g/dL (6.4-8.2) Albumin 3.2 g/dL (3.4-5.0) Albumin/Globulin Ratio 0.8 (1.0-1.7) Thyroid Stimulating Hormone (TSH) 1.746 uIU/mL (0.358-3.74) Lactic Acid Level 2.3 mmol/L (0.4-2.0) Test 01/14/18 05:25 Sodium Level 137 mmol/L (136-145) Potassium Level 4.2 mmol/L (3.5-5.1) Chloride Level 106 mmol/L (98-107) Carbon Dioxide Level 22 mmol/L (21-32) Anion Gap 9 (6-14) Blood Urea Nitrogen 24 mg/dL (8-26) Creatinine 1.7 mg/dL (0.7-1.3) Estimated GFR (Cockcroft-Gault) 39.9 Glucose Level 102 mg/dL (70-99) Calcium Level 8.1 mg/dL (8.5-10.1) Magnesium Level 1.8 mg/dL (1.8-2.4) Laboratory Tests Test 01/14/18 05:25 Sodium Level 137 mmol/L (136-145) Potassium Level 4.2 mmol/L (3.5-5.1) Chloride Level 106 mmol/L (98-107) Carbon Dioxide Level 22 mmol/L (21-32) Anion Gap 9 (6-14) Blood Urea Nitrogen 24 mg/dL (8-26) Creatinine 1.7 mg/dL (0.7-1.3) Estimated GFR (Cockcroft-Gault) 39.9 Glucose Level 102 mg/dL (70-99) Calcium Level 8.1 mg/dL (8.5-10.1) Magnesium Level 1.8 mg/dL (1.8-2.4) Microbiology 01/12/18 Urine Culture - Preliminary, Resulted 01/12/18 Urine Culture Result 1 (CHANDRA) - Preliminary, Resulted Medications Current Medications Tamsulosin HCl (Flomax) 0.4 mg 1X ONCE PO Last administered on 01/12/18at 11: 50; Start 01/12/18 at 11:00; Stop 01/12/18 at 11:01; Status DC Albuterol/ Ipratropium (Duoneb) 3 ml 1X ONCE NEB Last administered on at 11:33; Start 01/12/18 at 11:00; Stop 01/12/18 at 11:01; Status DC Acetaminophen/ Hydrocodone Bitart (Lortab 5/325) 1 tab 1X ONCE PO Last administered on 01/12/18at 11:51; Start 01/12/18 at 11:30; Stop 01/12/18 at 11 :33; Status DC Ceftriaxone Sodium 50 ml @ 100 mls/hr 1X ONCE IV Last administered on at 12:15; Start 01/12/18 at 12:15; Stop 01/12/18 at 12:44; Status DC Morphine Sulfate (Morphine Sulfate) 5 mg 1X ONCE IV Last administered on 01/12at 13:05; Start 01/12/18 at 13:15; Stop 01/12/18 at 13:16; Status DC Sodium Chloride 1,000 ml @ 1,000 mls/hr 1X ONCE IV Last administered on 01/12at 14:31; Start 01/12/18 at 14:30; Stop 01/12/18 at 15:29; Status DC Ondansetron HCl (Zofran) 4 mg PRN Q8HRS PRN IV NAUSEA/VOMITING Last administered on 01/12/18at 21:11; Start 01/12/18 at 14:30; Stop 01/13/18 at 14 :29; Status DC Morphine Sulfate (Morphine Sulfate) 4 mg PRN Q2HR PRN IV PAIN; Start 01/12/18 at 14:30; Stop 01/13/18 at 14:29; Status DC Acetaminophen (Tylenol) 650 mg PRN Q4HRS PRN PO FEVER; Start 01/12/18 at 14:30 ; Stop 01/13/18 at 14:29; Status DC Sodium Chloride 1,000 ml @ 100 mls/hr Q10H IV Last administered on 01/14/18at 08:38; Start 01/12/18 at 14:30 Ciprofloxacin/ Dextrose 200 ml @ 200 mls/hr Q12HR IV Last administered on at 08:39; Start 01/12/18 at 21:00 Tamsulosin HCl (Flomax) 0.4 mg DAILY PO Last administered on 01/14/18at 08:37; Start 01/13/18 at 09:00 Ondansetron HCl (Zofran) 4 mg 1X ONCE IV Last administered on 01/12/18at 14:31 ; Start 01/12/18 at 14:30; Stop 01/12/18 at 14:31; Status DC Aspirin (Ecotrin) 325 mg DAILY PO Last administered on 01/14/18at 08:36; Start 01/13/18 at 09:00 Atorvastatin Calcium (Lipitor) 20 mg QHS PO Last administered on 01/13/18at 20: 23; Start 01/12/18 at 21:00 Metoprolol Succinate (Toprol Xl) 25 mg HS PO ; Start 01/12/18 at 21:00 Pantoprazole Sodium (Protonix) 40 mg DAILYAC PO Last administered on at 08:36; Start 01/13/18 at 07:30 Lisinopril (Prinivil) 2.5 mg DAILY PO Last administered on 01/14/18at 08:36; Start 01/13/18 at 09:00 Oxycodone/ Acetaminophen (Percocet 5/325) 2 tab PRN Q4HRS PRN PO MODERATE PAIN , 2ND CHOICE Last administered on 01/12/18at 20:30; Start 01/12/18 at 17:45 Tamsulosin HCl (Flomax) 0.4 mg QHS PO Last administered on 01/13/18at 20:23; Start 01/12/18 at 21:00 Sodium Chloride 1,000 ml @ 75 mls/hr [id number] IV ; Start 01/12/18 at 17:45; Stop 01/12/18 at 19:12; Status DC Promethazine HCl/ Codeine (Phenergan With Codeine Oral Syrup) 5 ml PRN Q4HRS PRN PO COUGH Last administered on 01/13/18at 20:21; Start 01/12/18 at 20:45 Promethazine HCl/ Codeine (Phenergan With Codeine Oral Syrup) 10 ml PRN Q4HRS PRN PO COUGH; Start 01/12/18 at 20:45 Sodium Chloride 500 ml @ 500 mls/hr 1X ONCE IV Last administered on at 05:19; Start 01/13/18 at 05:30; Stop 01/13/18 at 06:29; Status DC Influenza Virus Vaccine (Afluria Trivalent [id number] Syringe) 0.5 ml ONCE ONCE VAX IM Last administered on 01/13/18at 09:45; Start 01/13/18 at 11:00; Stop 01/13/18 at 11:01; Status DC Lactobacillus Rhamnosus (Culturelle) 1 cap BID PO Last administered on at 08:37; Start 01/13/18 at 21:00 Sodium Chloride 500 ml @ 500 mls/hr 1X ONCE IV Last administered on at 12:03; Start 01/13/18 at 12:00; Stop 01/13/18 at 12:59; Status DC Zolpidem Tartrate (Ambien) 5 mg PRN QHS PRN PO INSOMNIA Last administered on at 22:24; Start 01/13/18 at 21:15 Acetaminophen (Tylenol) 650 mg PRN Q4HRS PRN PO FEVER Last administered on at 00:32; Start 01/13/18 at 23:45 Active Scripts Active [Oxycodone Hcl/Acetaminophen] 1 TAB Tablet 2 Tab PO PRN Q4HRS PRN Plavix (Clopidogrel Bisulfate) 75 Mg Tablet 75 Mg PO [id number] Lipitor (Atorvastatin Calcium) 20 Mg Tablet 20 Mg PO QHS Reported Lisinopril 2.5 Mg Tablet 2.5 Mg PO DAILY Metoprolol Succinate ( Xl ) (Metoprolol Succinate) 25 Mg Tab.er.24h 25 Mg PO HS Protonix (Pantoprazole Sodium) 40 Mg Tablet. 40 Mg PO DAILY Oxycodone-Acetaminophen 5-325 (Oxycodone Hcl/Acetaminophen) 1 Each Tablet 2 Each PO Q6HRS PRN Aspirin Ec (Aspirin) 325 Mg Tablet.dr 1 Tab PO DAILY Vitals/I & O Vital Sign - Last 24 Hours 01/13/18 01/13/18 01/13/18 01/13/18 11:00 15:00 19:15 20:00 Temp 97.9 98.6 98.2 97.9 98.6 98.2 Pulse 74 81 81 Resp 20 20 16 B/P (MAP) 90/47 (61) 121/54 (76) 121/58 (79) Pulse Ox 94 95 97 O2 Delivery Room Air Room Air Room Air Room Air 01/13/18 01/13/18 01/14/18 01/14/18 21:00 23:27 03:05 07:00 Temp 101.5 98.7 98.6 101.5 98.7 98.6 Pulse 81 85 70 71 Resp 20 20 16 B/P (MAP) 121/58 103/44 (63) 94/45 (61) 116/67 (83) Pulse Ox 95 94 93 O2 Delivery Room Air Room Air Room Air 01/14/18 01/14/18 07:13 08:36 Pulse 71 B/P (MAP) 116/67 O2 Delivery Room Air Intake and Output 01/13/18 01/13/18 01/14/18 15:00 23:00 07:00 Intake Total 300 ml 100 ml 300 ml Output Total 300 ml 575 ml 350 ml Balance 0 ml -475 ml -50 ml MARC LEE III DO Jan 14, 2018 11:03
[2018-01-14 15:00] VITALS: BP 140/75
[2018-01-14 19:30] VITALS: BP 150/78
[2018-01-14] MEDS: ATORVASTATIN CALCIUM 20 MG TABLET PO SCH (20:03)
[2018-01-14] MEDS: METOPROLOL SUCC 24HR ER 25 MG TAB.ER.24H. PO SCH (20:04)
[2018-01-14] MEDS: ZOLPIDEM 5 MG TABLET. PO PRN (20:04)
[2018-01-14 23:41] VITALS: BP 119/65
[2018-01-15 03:21] VITALS: BP 130/83
[2018-01-15 04:01] LABS: CALCIUM 8.2 mg/dL (8.5-10.1); CREATININE 1.4 mg/dL (0.7-1.3); MAGNESIUM 1.8 mg/dL (1.8-2.4); POTASSIUM 4.2 mmol/L (3.5-5.1)
[2018-01-15 07:15] VITALS: BP 142/79
--- NOTE | 2018-01-15 09:24 | RAD ---
PA and lateral chest radiograph. History: Shortness of air. Comparison: January 12, 2018. Findings: Cardiomediastinal silhouette is within normal limits for size. Median sternotomy wires are present. No pneumothorax is seen. There is mild blunting of both costophrenic angles on lateral views. There is mild accentuation of interstitial markings. Emphysematous changes of lungs are seen. Multiple thoracic vertebral levels demonstrate marginal disc osteophytes. Vertebroplasty cement is seen near the thoracolumbar junction. Impression: 1. There is mild blunting of both costophrenic angles, could indicate pleural scarring versus small bilateral pleural effusions. 2. No acute airspace disease identified. 3. Emphysematous changes. Mild accentuation of interstitial markings, could be mild associated fibrosis. Electronically signed by: Steve Solis MD (01/15/2018 9:20 AM) [place] [id number]
[2018-01-15] MEDS: LISINOPRIL 5 MG TABLET. PO SCH (09:40)
[2018-01-15] MEDS: ASPIRIN ENTERIC COATED 325 MG TABLET.DR. PO SCH (09:41)
[2018-01-15] MEDS: LACTOBACILLUS RHAMNOSUS GG 1 CAPSULE. PO SCH ×2 (09:41→20:31)
[2018-01-15] MEDS: CIPROFLOXACIN 400MG PREMIX 200 ML IV SCH ×2 (09:42→20:33)
[2018-01-15] MEDS: PANTOPRAZOLE 40 MG TABLET.DR. PO SCH (09:42)
[2018-01-15] MEDS: TAMSULOSIN 0.4 MG CAP.ER.24H. PO SCH ×2 (09:43→20:32)
[2018-01-15] MEDS ORDERED: FUROSEMIDE 40 MG/4 ML VIAL. IVP ONE (09:45)
[2018-01-15 10:25] LABS: BASO % 1 % (0-3); EOS # 0.1 x10^3/uL (0.0-0.7); EOS % 3 % (0-3); HEMATOCRIT 31.5 % (39.0-53.0); HEMOGLOBIN 10.8 g/dL (13.0-17.5); LYMPH % 19 % (24-48); MEAN CORPUSCULAR HEMOGLOBIN 31 pg (25-35); MEAN CORPUSCULAR HGB CONC 34 g/dL (31-37); MEAN CORPUSCULAR VOLUME 90 fL (79-100); MONO # 0.7 x10^3/uL (0.0-1.1); MONO % 14 % (0-9); NEUT # 3.2 x10^3uL (1.8-7.7); NEUT % 63 % (31-73); PLATELET COUNT 173 x10^3/uL (140-400); RED CELL DISTRIBUTION WIDTH 15.4 % (11.5-14.5); WHITE BLOOD COUNT 5.1 x10^3/uL (4.0-11.0)
--- NOTE | 2018-01-15 10:35 | CONS ---
DATE OF CONSULTATION: PULMONARY CONSULTATION ATTENDING PHYSICIAN: Dr. Lassiter. REASON FOR CONSULTATION: Dyspnea. HISTORY OF PRESENT ILLNESS: The patient is a 72-year-old male who was hospitalized with fever and urinary tract infection and has been treated for E. coli urinary tract infection. The patient was going to be discharged home today, but when Dr. Lassiter was making rounds, he noticed that the patient was having significant exertional dyspnea. As a result, his discharge was cancelled and I have been asked to see him for further evaluation. The patient has a significant cardiac history. He has an EF of 35%. He underwent left cardiac catheterization in 03/2016. Only 2 out of 5 bypass grafts were patent. He had unsuccessful recanalization of subacute chronic total occlusion of the distal left circumflex stents. The patient's chest x-ray was done today and I have reviewed the chest x-ray and it shows evidence of mild interstitial edema. There were some tiny pleural effusions as well. This was a new finding compared to clear chest x-ray on 01/12/2018. The patient stated this all started after nebulizer treatments. He started to cough and had shortness of breath. He feels better now. I have been asked to see him for further evaluation. He has no chest pain. He says the cough only started while in the hospital after a nebulizer treatment. No headaches. No nausea or vomiting. No diarrhea. He was currently being hydrated for his urinary tract infection. PAST MEDICAL HISTORY: Significant for history of severe cardiomyopathy, EF of 35%; history of occluded grafts, 3 out of 5 and suspected COPD. He smoked for at least 48 years. He has BPH, hypertension, GA and angioplasty and coronary artery bypass and 6 stents. PAST SURGICAL HISTORY: As discussed above. FAMILY HISTORY: Diabetes and coronary artery disease. Family history is noncontributory to lungs. SOCIAL HISTORY: He is retired. He quit tobacco when he was 61 years old, but smoked for about 48 years. REVIEW OF SYSTEMS: Twelve-point systems obtained. Pertinent positives discussed in my history of present illness, otherwise noncontributory. All systems that were negative were reviewed as well. ALLERGIES: None. MEDICATIONS: His current medications were reviewed as listed in the MRAD. PHYSICAL EXAMINATION: VITAL SIGNS: Reviewed. He had a T-max of 99.5 yesterday. Today, he is afebrile. HEENT: Sclerae nonicteric. NECK: Supple. LUNGS: With few crackles at the bases. CARDIOVASCULAR: Regular rate and rhythm. ABDOMEN: Soft and nontender. EXTREMITIES: With trace pitting edema and some venous stasis. LABORATORY DATA: His labs were reviewed. His white cell count on admission was 20.7 and then on 01/13/2018, it was 16.2. Chemistries with a BUN and creatinine of 18 and 1.4; it was 31 and 1.8 on admission. IMPRESSION: 1. Acute dyspnea secondary to development of mild interstitial edema in a patient who has known cardiomyopathy with an ejection fraction of 35%. 2. The patient with previous cardiac catheterization in 03/2016. 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 3. Highly suspected chronic obstructive pulmonary disease, smoked for 48 years. 4. Recent Escherichia coli urinary tract infection. RECOMMENDATIONS: 1. From a Pulmonary standpoint, I would stop the IV fluids and give one dose of Lasix. 2. Follow him clinically. 3. Continue antibiotics per Dr. Lassiter's recommendation for Escherichia coli urinary tract infection. 4. I will follow white cell count to make sure the trend is going down. 5. P.r.n. bronchodilators. 6. Discussed with RN and discussed with Dr. Lassiter. We will probably consider keeping him one more day in the hospital. PFTs as an outpatient. JENNIFER RAYGOZA MD DR: DIEGO/kwabena JOB#: [id number] / [id number]
--- NOTE | 2018-01-15 10:35 | PDOC ---
PROGRESS NOTES Chief Complaint Chief Complaint Urinary Retention and SOA History of Present Illness History of Present Illness Pt was examined at bedside sitting up, he has increased work of breathing and complaining of soa. Pt was afebrile overnight, vora catheter still in place and IV fluids hanging, cipro antibiotics IV on board. RISHI pt and son in law concerning soa, called pulmonology on phone and they advised stat CXR to check for possible pneumonia before discharging. Chest CT (01/13) showed Bibasilar scar or atelectasis with diffuse bronchial wall thickening; Mild emphysema; Mild ectasia of the ascending thoracic aorta; Indeterminate small low-density nodules in the liver, stable from prior exam. [facility] Urology CAREER REPRESENTATIVE on 01/13, she stated that they intend to keep the vora catheter in place for 1 week, at which time the patient is scheduled to follow up at the urology clinic, they plan to do a TURP as some point in the near future. DW patient leaving the vora in for 1 week, and the probable procedure he will undergo with urology to resolve the prostatomegaly. Vitals Vitals Vital Signs Date Time Temp Pulse Resp B/P (MAP) Pulse Ox O2 Delivery O2 Flow Rate FiO2 01/15/18 09:40 69 142/79 01/15/18 08:00 Room Air 01/15/18 07:15 97.8 17 97 97.8 Physical Exam General: Alert, Oriented X3, mild distress Heart: Regular rate, Normal S1, Normal S2 Lungs: Clear, Other (no wheezes appreciated on ascultation but did have increased work of breathing.) Abdomen: Normal bowel sounds, Soft Extremities: No clubbing Skin: No rashes Labs LABS Laboratory Tests Test 01/15/18 02:50 Sodium Level 139 mmol/L (136-145) Potassium Level 4.2 mmol/L (3.5-5.1) Chloride Level 108 mmol/L (98-107) Carbon Dioxide Level 21 mmol/L (21-32) Anion Gap 10 (6-14) Blood Urea Nitrogen 18 mg/dL (8-26) Creatinine 1.4 mg/dL (0.7-1.3) Estimated GFR (Cockcroft-Gault) 50.0 Glucose Level 104 mg/dL (70-99) Calcium Level 8.2 mg/dL (8.5-10.1) Magnesium Level 1.8 mg/dL (1.8-2.4) Review of Systems Review of Systems General: Denies fever, night sweats, chills Cardio: Denies chest pain, palpitations Pulm: Admits soa, Assessment and Plan Assessmemt and Plan Assessment Acute on chronic renal failure Acute Pyelonephritis Chronic shortness of breath Leukocytosis Vora Plan Probable discharge today if CXR is normal and patients breathing improves CXR stat- possible pneumonia Ciprofloxacin CBC- trend wbc Vora Catheter maintenance Consult Pulmonology Dr. Young Appreciate urology input DVT prophylaxis PT/OT Continue Home meds Comment Review of Relevant I have reviewed the following items lyndon (where applicable) has been applied. Labs Laboratory Tests Test 01/14/18 05:25 01/15/18 02:50 Sodium Level 137 mmol/L (136-145) 139 mmol/L (136-145) Potassium Level 4.2 mmol/L (3.5-5.1) 4.2 mmol/L (3.5-5.1) Chloride Level 106 mmol/L (98-107) 108 mmol/L (98-107) Carbon Dioxide Level 22 mmol/L (21-32) 21 mmol/L (21-32) Anion Gap 9 (6-14) 10 (6-14) Blood Urea Nitrogen 24 mg/dL (8-26) 18 mg/dL (8-26) Creatinine 1.7 mg/dL (0.7-1.3) 1.4 mg/dL (0.7-1.3) Estimated GFR (Cockcroft-Gault) 39.9 50.0 Glucose Level 102 mg/dL (70-99) 104 mg/dL (70-99) Calcium Level 8.1 mg/dL (8.5-10.1) 8.2 mg/dL (8.5-10.1) Magnesium Level 1.8 mg/dL (1.8-2.4) 1.8 mg/dL (1.8-2.4) Laboratory Tests Test 01/15/18 02:50 Sodium Level 139 mmol/L (136-145) Potassium Level 4.2 mmol/L (3.5-5.1) Chloride Level 108 mmol/L (98-107) Carbon Dioxide Level 21 mmol/L (21-32) Anion Gap 10 (6-14) Blood Urea Nitrogen 18 mg/dL (8-26) Creatinine 1.4 mg/dL (0.7-1.3) Estimated GFR (Cockcroft-Gault) 50.0 Glucose Level 104 mg/dL (70-99) Calcium Level 8.2 mg/dL (8.5-10.1) Magnesium Level 1.8 mg/dL (1.8-2.4) Microbiology 01/12/18 Urine Culture - Final, Complete 01/12/18 Urine Culture Result 1 (CHANDRA) - Final, Complete 01/12/18 Antimicrobic Susceptibility - Final, Complete Medications Current Medications Tamsulosin HCl (Flomax) 0.4 mg 1X ONCE PO Last administered on 01/12/18at 11: 50; Start 01/12/18 at 11:00; Stop 01/12/18 at 11:01; Status DC Albuterol/ Ipratropium (Duoneb) 3 ml 1X ONCE NEB Last administered on at 11:33; Start 01/12/18 at 11:00; Stop 01/12/18 at 11:01; Status DC Acetaminophen/ Hydrocodone Bitart (Lortab 5/325) 1 tab 1X ONCE PO Last administered on 01/12/18at 11:51; Start 01/12/18 at 11:30; Stop 01/12/18 at 11 :33; Status DC Ceftriaxone Sodium 50 ml @ 100 mls/hr 1X ONCE IV Last administered on at 12:15; Start 01/12/18 at 12:15; Stop 01/12/18 at 12:44; Status DC Morphine Sulfate (Morphine Sulfate) 5 mg 1X ONCE IV Last administered on 01/12at 13:05; Start 01/12/18 at 13:15; Stop 01/12/18 at 13:16; Status DC Sodium Chloride 1,000 ml @ 1,000 mls/hr 1X ONCE IV Last administered on 01/12at 14:31; Start 01/12/18 at 14:30; Stop 01/12/18 at 15:29; Status DC Ondansetron HCl (Zofran) 4 mg PRN Q8HRS PRN IV NAUSEA/VOMITING Last administered on 01/12/18at 21:11; Start 01/12/18 at 14:30; Stop 01/13/18 at 14 :29; Status DC Morphine Sulfate (Morphine Sulfate) 4 mg PRN Q2HR PRN IV PAIN; Start 01/12/18 at 14:30; Stop 01/13/18 at 14:29; Status DC Acetaminophen (Tylenol) 650 mg PRN Q4HRS PRN PO FEVER; Start 01/12/18 at 14:30 ; Stop 01/13/18 at 14:29; Status DC Sodium Chloride 1,000 ml @ 100 mls/hr Q10H IV Last administered on 01/14/18 20:16; Start 01/12/18 at 14:30 Ciprofloxacin/ Dextrose 200 ml @ 200 mls/hr Q12HR IV Last administered on 09:42; Start 01/12/18 at 21:00 Tamsulosin HCl (Flomax) 0.4 mg DAILY PO Last administered on 01/15/18 09:43; Start 01/13/18 at 09:00 Ondansetron HCl (Zofran) 4 mg 1X ONCE IV Last administered on 01/12/18at 14:31 ; Start 01/12/18 at 14:30; Stop 01/12/18 at 14:31; Status DC Aspirin (Ecotrin) 325 mg DAILY PO Last administered on 01/15/18 09:41; Start 01/13/18 at 09:00 Atorvastatin Calcium (Lipitor) 20 mg QHS PO Last administered on 01/14/18at 20: 03; Start 01/12/18 at 21:00 Metoprolol Succinate (Toprol Xl) 25 mg HS PO Last administered on 01/14/18at 20 :04; Start 01/12/18 at 21:00 Pantoprazole Sodium (Protonix) 40 mg DAILYAC PO Last administered on 09:42; Start 01/13/18 at 07:30 Lisinopril (Prinivil) 2.5 mg DAILY PO Last administered on 01/15/18at 09:40; Start 01/13/18 at 09:00 Oxycodone/ Acetaminophen (Percocet 5/325) 2 tab PRN Q4HRS PRN PO MODERATE PAIN , 2ND CHOICE Last administered on 01/12/18at 20:30; Start 01/12/18 at 17:45 Tamsulosin HCl (Flomax) 0.4 mg QHS PO Last administered on 01/14/18at 20:04; Start 01/12/18 at 21:00 Sodium Chloride 1,000 ml @ 75 mls/hr [id number] IV ; Start 01/12/18 at 17:45; Stop 01/12/18 at 19:12; Status DC Promethazine HCl/ Codeine (Phenergan With Codeine Oral Syrup) 5 ml PRN Q4HRS PRN PO COUGH Last administered on 01/13/18at 20:21; Start 01/12/18 at 20:45 Promethazine HCl/ Codeine (Phenergan With Codeine Oral Syrup) 10 ml PRN Q4HRS PRN PO COUGH; Start 01/12/18 at 20:45 Sodium Chloride 500 ml @ 500 mls/hr 1X ONCE IV Last administered on at 05:19; Start 01/13/18 at 05:30; Stop 01/13/18 at 06:29; Status DC Influenza Virus Vaccine (Afluria Trivalent [id number] Syringe) 0.5 ml ONCE ONCE VAX IM Last administered on 01/13/18at 09:45; Start 01/13/18 at 11:00; Stop 01/13/18 at 11:01; Status DC Lactobacillus Rhamnosus (Culturelle) 1 cap BID PO Last administered on at 09:41; Start 01/13/18 at 21:00 Sodium Chloride 500 ml @ 500 mls/hr 1X ONCE IV Last administered on at 12:03; Start 01/13/18 at 12:00; Stop 01/13/18 at 12:59; Status DC Zolpidem Tartrate (Ambien) 5 mg PRN QHS PRN PO INSOMNIA Last administered on at 20:04; Start 01/13/18 at 21:15 Acetaminophen (Tylenol) 650 mg PRN Q4HRS PRN PO FEVER Last administered on at 20:03; Start 01/13/18 at 23:45 Furosemide (Lasix) 40 mg 1X ONCE IVP Last administered on 01/15/18 09:46; Start 01/15/18 at 09:45; Stop 01/15/18 at 09:46; Status DC Active Scripts Active [Oxycodone Hcl/Acetaminophen] 1 TAB Tablet 2 Tab PO PRN Q4HRS PRN Plavix (Clopidogrel Bisulfate) 75 Mg Tablet 75 Mg PO DAILYWBKFT Lipitor (Atorvastatin Calcium) 20 Mg Tablet 20 Mg PO QHS Reported Lisinopril 2.5 Mg Tablet 2.5 Mg PO DAILY Metoprolol Succinate ( Xl ) (Metoprolol Succinate) 25 Mg Tab.er.24h 25 Mg PO HS Protonix (Pantoprazole Sodium) 40 Mg Tablet.dr 40 Mg PO DAILY Oxycodone-Acetaminophen 5-325 (Oxycodone Hcl/Acetaminophen) 1 Each Tablet 2 Each PO Q6HRS PRN Aspirin Ec (Aspirin) 325 Mg Tablet.dr 1 Tab PO DAILY Vitals/I & O Vital Sign - Last 24 Hours 01/14/18 01/14/18 01/14/18 01/14/18 10:53 15:00 19:30 20:00 Temp 97.7 99.1 99.5 97.7 99.1 99.5 Pulse 60 72 78 Resp 18 20 20 B/P (MAP) 133/68 (89) 140/75 (96) 150/78 (102) Pulse Ox 99 94 95 O2 Delivery Room Air Room Air Room Air Room Air 01/14/18 01/14/18 01/15/18 01/15/18 20:04 23:41 03:21 07:15 Temp 98.3 97.6 97.8 98.3 97.6 97.8 Pulse 78 65 70 69 Resp 16 16 17 B/P (MAP) 150/78 119/65 (83) 130/83 (99) 142/79 (100) Pulse Ox 97 95 97 O2 Delivery Room Air Room Air Room Air 01/15/18 01/15/18 08:00 09:40 Pulse 69 B/P (MAP) 142/79 O2 Delivery Room Air Intake and Output 01/14/18 01/14/18 01/15/18 15:00 23:00 07:00 Intake Total 150 ml 490 ml 200 ml Output Total 850 ml 500 ml Balance 150 ml -360 ml -300 ml MARC LEE III DO Jan 15, 2018 10:35
[2018-01-15 10:45] VITALS: BP 150/89
--- NOTE | 2018-01-15 11:02 | PDOC ---
Renal-Progress Notes Subjective Notes Notes NO NEW COMPLAINTS History of Present Illness Hx of present illness STABLE Vitals Vitals Vital Signs Date Time Temp Pulse Resp B/P (MAP) Pulse Ox O2 Delivery O2 Flow Rate FiO2 01/15/18 10:45 97.5 71 18 150/89 (109) 97 Room Air 97.5 Weight Weight [ ] I.O. Intake and Output Intake and Output 01/15/18 07:00 Intake Total 840 ml Output Total 1350 ml Balance -510 ml Intake Oral 840 ml Output Urine Total 1350 ml # Bowel Movements 1 Labs Labs Laboratory Tests Test 01/15/18 02:50 White Blood Count 5.1 x10^3/uL (4.0-11.0) Red Blood Count 3.50 x10^6/uL (4.30-5.70) Hemoglobin 10.8 g/dL (13.0-17.5) Hematocrit 31.5 % (39.0-53.0) Mean Corpuscular Volume 90 fL (79-100) Mean Corpuscular Hemoglobin 31 pg (25-35) Mean Corpuscular Hemoglobin Concent 34 g/dL (31-37) Red Cell Distribution Width 15.4 % (11.5-14.5) Platelet Count 173 x10^3/uL (140-400) Neutrophils (%) (Auto) 63 % (31-73) Lymphocytes (%) (Auto) 19 % (24-48) Monocytes (%) (Auto) 14 % (0-9) Eosinophils (%) (Auto) 3 % (0-3) Basophils (%) (Auto) 1 % (0-3) Neutrophils # (Auto) 3.2 x10^3uL (1.8-7.7) Lymphocytes # (Auto) 1.0 x10^3/uL (1.0-4.8) Monocytes # (Auto) 0.7 x10^3/uL (0.0-1.1) Eosinophils # (Auto) 0.1 x10^3/uL (0.0-0.7) Basophils # (Auto) 0.0 x10^3/uL (0.0-0.2) Sodium Level 139 mmol/L (136-145) Potassium Level 4.2 mmol/L (3.5-5.1) Chloride Level 108 mmol/L (98-107) Carbon Dioxide Level 21 mmol/L (21-32) Anion Gap 10 (6-14) Blood Urea Nitrogen 18 mg/dL (8-26) Creatinine 1.4 mg/dL (0.7-1.3) Estimated GFR (Cockcroft-Gault) 50.0 Glucose Level 104 mg/dL (70-99) Calcium Level 8.2 mg/dL (8.5-10.1) Magnesium Level 1.8 mg/dL (1.8-2.4) Micro Micro Microbiology 01/12/18 Urine Culture - Final, Complete 01/12/18 Urine Culture Result 1 (CHANDRA) - Final, Complete 01/12/18 Antimicrobic Susceptibility - Final, Complete Review of Systems Constitutional: yes: alert, oriented Ears/Nose/Throat: Yes: no symptom reported Eyes: Yes: no symptom reported Cardiovascular: Yes no symptom reported Gastrointestional: Yes: no symptom reported Genitourinary: Yes: no symptom reported Musculoskeletal: Yes: no symptom reported Skin: Yes no symptom reported Psychiatric/Neurological: Yes: no symptom reported Endocrine: Yes: no symptom reported Physical Exam General Appearance: no apparent distress Skin: warm Respiratory: decreased breath sounds Heart: S1S2 Abdomen: soft, bowel sounds present Genitourinary: bladder flat Extremities: pulses present, no edema Assessment Assessment IMP ALETA-BETTER WITH CR DOWN TO 1.4-NEARLY RESOLVED URINARY RETENTION UTI BPH PLAN D/C IVF'S ENC PO REAL ANTIBIOTICS UROLOGY FOLLOWING SOLIS VALLE MD Jan 15, 2018 11:02
[2018-01-15 14:58] VITALS: BP 125/63
[2018-01-15 19:43] VITALS: BP 137/73
[2018-01-15] MEDS: PROMETH/CODEINE 6.25/10MG 5 ML SYRUP. PO PRN (20:32)
[2018-01-15] MEDS: ATORVASTATIN CALCIUM 20 MG TABLET PO SCH (20:32)
[2018-01-15] MEDS: METOPROLOL SUCC 24HR ER 25 MG TAB.ER.24H. PO SCH (20:33)
[2018-01-15] MEDS: ZOLPIDEM 5 MG TABLET. PO PRN (22:02)
[2018-01-15] MEDS: oxyCODONE/APAP 5/325 1 TAB TABLET PO PRN (22:12)
[2018-01-15 23:41] VITALS: BP 138/66
[2018-01-16 03:44] VITALS: BP 145/79
[2018-01-16 05:31] LABS: CALCIUM 8.5 mg/dL (8.5-10.1); CREATININE 1.6 mg/dL (0.7-1.3); GFR 42.8; POTASSIUM 4.1 mmol/L (3.5-5.1)
[2018-01-16 07:00] VITALS: BP 155/75
--- NOTE | 2018-01-16 08:43 | PDOC ---
SUBJECTIVE Subjective Pt had a good night. Catheter is not bothering him. OBJECTIVE Objective Physical Exam: General appearance: Alert and Oriented Head: Normocephalic, without obvious abnormality Eyes: conjunctivae/corneas clear. PERRL, EOM's intact. Fundi benign Lungs: regular respirations, non labored breathing. Abdomen: soft, non-tender. No masses, no organomegaly Pelvic: vora catheter in place draining clear yellow urine. Device in good working order. Vital Signs Vital Signs Date Time Temp Pulse Resp B/P (MAP) Pulse Ox O2 Delivery O2 Flow Rate FiO2 01/16/18 07:00 98.3 74 18 155/75 (101) 96 Room Air 98.3 01/16/18 03:44 98.3 71 18 145/79 (101) 97 Room Air 98.3 01/15/18 23:41 98.3 68 18 138/66 (90) 97 Room Air 98.3 01/15/18 23:12 Room Air 01/15/18 22:12 Room Air 01/15/18 20:33 74 137/73 01/15/18 20:00 Room Air 01/15/18 19:43 98.2 74 18 137/73 (94) 97 Room Air 98.2 01/15/18 14:58 98.1 67 18 125/63 (83) 96 Room Air 98.1 01/15/18 10:45 97.5 71 18 150/89 (109) 97 Room Air 97.5 01/15/18 09:40 69 142/79 I & O Intake and Output 01/16/18 07:00 Intake Total 950 ml Output Total 4400 ml Balance -3450 ml Intake Oral 950 ml Output Urine Total 4400 ml # Voids 2 PHYSICAL EXAM Physical Exam Physical Exam: General appearance: Alert and Oriented Head: Normocephalic, without obvious abnormality Eyes: conjunctivae/corneas clear. PERRL, EOM's intact. Fundi benign Lungs: regular respirations, non labored breathing. Abdomen: soft, non-tender. No masses, no organomegaly Pelvic: vora catheter in place draining clear yellow urine. Device in good working order. ASSESSMENT/PLAN Assessment/Plan Ok for patient to discharge from a Urology perspective. Whenever he does go home he should go home with vora catheter in [place]. Nursing to teach vora catheter care prior to discharge and may provide extra vora catheter bags and leg straps as necessary. Continue Flomax while in house and as an outpatient. An appointment has been arranged for him to see Dr. Oreilly next week for voiding trial on 01/21/18 at 0940 am at [facility] location. Pt still has appointment card and new patient paperwork. 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 Currently afebrile. Last fever was 99.5 on 01/15/16 at 1930. Discussed above with attending RN. Will sign off at this time, but please call with questions or change in patient condition. Problems: (1) Vora catheter in place (2) Urinary retention COMMENT Lab Laboratory Tests Test 01/16/18 04:15 Sodium Level 141 mmol/L (136-145) Potassium Level 4.1 mmol/L (3.5-5.1) Chloride Level 104 mmol/L (98-107) Carbon Dioxide Level 28 mmol/L (21-32) Anion Gap 9 (6-14) Blood Urea Nitrogen 17 mg/dL (8-26) Creatinine 1.6 mg/dL (0.7-1.3) Estimated GFR (Cockcroft-Gault) 42.8 Glucose Level 96 mg/dL (70-99) Calcium Level 8.5 mg/dL (8.5-10.1) GILBERTO ZEE APRN Jan 16, 2018 08:43
[2018-01-16] MEDS: ASPIRIN ENTERIC COATED 325 MG TABLET.DR. PO SCH (08:52)
[2018-01-16] MEDS: LACTOBACILLUS RHAMNOSUS GG 1 CAPSULE. PO SCH (08:52)
[2018-01-16 08:53] VITALS: BP 155/75
[2018-01-16] MEDS: CIPROFLOXACIN 400MG PREMIX 200 ML IV SCH (08:53)
[2018-01-16] MEDS: LISINOPRIL 5 MG TABLET. PO SCH (08:53)
[2018-01-16] MEDS: PANTOPRAZOLE 40 MG TABLET.DR. PO SCH (08:53)
--- NOTE | 2018-01-16 10:33 | PDOC ---
PULMONARY PROGRESS NOTES Subjective no soa Vitals Vital Signs Date Time Temp Pulse Resp B/P (MAP) Pulse Ox O2 Delivery O2 Flow Rate FiO2 01/16/18 08:53 74 155/75 01/16/18 08:00 Room Air 01/16/18 07:00 98.3 18 96 98.3 General: Alert, No acute distress Lungs: Clear Cardiovascular: S1, S2 Abdomen: Soft Neuro Exam: Alert Extremities: No Edema Skin: Warm Labs Laboratory Tests Test 01/15/18 02:50 01/16/18 04:15 White Blood Count 5.1 x10^3/uL (4.0-11.0) Red Blood Count 3.50 x10^6/uL (4.30-5.70) Hemoglobin 10.8 g/dL (13.0-17.5) Hematocrit 31.5 % (39.0-53.0) Mean Corpuscular Volume 90 fL (79-100) Mean Corpuscular Hemoglobin 31 pg (25-35) Mean Corpuscular Hemoglobin Concent 34 g/dL (31-37) Red Cell Distribution Width 15.4 % (11.5-14.5) Platelet Count 173 x10^3/uL (140-400) Neutrophils (%) (Auto) 63 % (31-73) Lymphocytes (%) (Auto) 19 % (24-48) Monocytes (%) (Auto) 14 % (0-9) Eosinophils (%) (Auto) 3 % (0-3) Basophils (%) (Auto) 1 % (0-3) Neutrophils # (Auto) 3.2 x10^3uL (1.8-7.7) Lymphocytes # (Auto) 1.0 x10^3/uL (1.0-4.8) Monocytes # (Auto) 0.7 x10^3/uL (0.0-1.1) Eosinophils # (Auto) 0.1 x10^3/uL (0.0-0.7) Basophils # (Auto) 0.0 x10^3/uL (0.0-0.2) Sodium Level 139 mmol/L (136-145) 141 mmol/L (136-145) Potassium Level 4.2 mmol/L (3.5-5.1) 4.1 mmol/L (3.5-5.1) Chloride Level 108 mmol/L (98-107) 104 mmol/L (98-107) Carbon Dioxide Level 21 mmol/L (21-32) 28 mmol/L (21-32) Anion Gap 10 (6-14) 9 (6-14) Blood Urea Nitrogen 18 mg/dL (8-26) 17 mg/dL (8-26) Creatinine 1.4 mg/dL (0.7-1.3) 1.6 mg/dL (0.7-1.3) Estimated GFR (Cockcroft-Gault) 50.0 42.8 Glucose Level 104 mg/dL (70-99) 96 mg/dL (70-99) Calcium Level 8.2 mg/dL (8.5-10.1) 8.5 mg/dL (8.5-10.1) Magnesium Level 1.8 mg/dL (1.8-2.4) Laboratory Tests Test 01/16/18 04:15 Sodium Level 141 mmol/L (136-145) Potassium Level 4.1 mmol/L (3.5-5.1) Chloride Level 104 mmol/L (98-107) Carbon Dioxide Level 28 mmol/L (21-32) Anion Gap 9 (6-14) Blood Urea Nitrogen 17 mg/dL (8-26) Creatinine 1.6 mg/dL (0.7-1.3) Estimated GFR (Cockcroft-Gault) 42.8 Glucose Level 96 mg/dL (70-99) Calcium Level 8.5 mg/dL (8.5-10.1) Medications Active Scripts Medications Dose Route/Sig Max Daily Dose Days Date Category Lisinopril 2.5 Mg Tablet 2.5 Mg PO DAILY 03/09/16 Reported Metoprolol Succinate ( Xl ) (Metoprolol Succinate) 25 Mg Tab.er.24h 25 Mg PO HS 03/09/16 Reported Protonix (Pantoprazole Sodium) 40 Mg Tablet. 40 Mg PO DAILY 03/09/16 Reported Oxycodone-Acetaminophen 5-325 (Oxycodone Hcl/Acetaminophen) 1 Each Tablet 2 Each PO Q6HRS PRN 11/09/14 Reported Aspirin Ec (Aspirin) 325 Mg Tablet.dr 1 Tab PO DAILY 11/09/14 Reported [Oxycodone Hcl/Acetaminophen] 1 TAB Tablet 2 Tab PO PRN Q4HRS PRN 11/09/14 Rx Plavix (Clopidogrel Bisulfate) 75 Mg Tablet 75 Mg PO [id number] 11/09/14 Rx Lipitor (Atorvastatin Calcium) 20 Mg Tablet 20 Mg PO QHS 11/09/14 Rx Impression . 1. Acute dyspnea secondary to development of mild interstitial edema in a patient who has known cardiomyopathy with an ejection fraction of 35%. 2. The patient with previous cardiac catheterization in 03/2016. 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 3. Highly suspected chronic obstructive pulmonary disease, smoked for 48 years. 4. Recent Escherichia coli urinary tract infection. Plan . RECOMMENDATIONS: 1. From a Pulmonary standpoint, he is better with one dose of Lasix. 2. Follow him clinically. 3. Continue antibiotics per Dr. Lassiter's recommendation for Escherichia coli urinary tract infection. 4. improved white cell count 5. P.r.n. bronchodilators. 6. Discussed with RN / PFTs as an outpatient. ok with JENNIFER Stratton MD Jan 16, 2018 10:33
--- NOTE | 2018-01-16 11:39 | PDOC ---
PROGRESS NOTES Chief Complaint Chief Complaint Urinary Retention and SOA History of Present Illness History of Present Illness Pt was seen today at bedside and his breathing was visibly improved from yesterday. Pt stated he was glad he stayed another night and said his breathing is "much better." Discussed with him discharge today and taking his home meds and abx. He was prescribed Simvacort inhaler& Ciprofloxacin to use at home. Pt was counseled on use of his catheter and was given a leg bag and shown how to use it. He was seen by urology and pulmonology today and both are okay with discharge. Per urology, he will need to keep catheter in place when discharged. Pt was examined at bedside sitting up, he has increased work of breathing and complaining of soa. Pt was afebrile overnight, vora catheter still in place and IV fluids hanging, cipro antibiotics IV on board. RISHI pt and son in law concerning soa, called pulmonology on phone and they advised stat CXR to check for possible pneumonia before discharging. Chest CT (01/13) showed Bibasilar scar or atelectasis with diffuse bronchial wall thickening; Mild emphysema; Mild ectasia of the ascending thoracic aorta; Indeterminate small low-density nodules in the liver, stable from prior exam. [facility]rology BOTANY TECHNICIAN on 01/13, she stated that they intend to keep the vora catheter in place for 1 week, at which time the patient is scheduled to follow up at the urology clinic, they plan to do a TURP as some point in the near future. DW patient leaving the vora in for 1 week, and the probable procedure he will undergo with urology to resolve the prostatomegaly. Vitals Vitals Vital Signs Date Time Temp Pulse Resp B/P (MAP) Pulse Ox O2 Delivery O2 Flow Rate FiO2 01/16/18 08:53 74 155/75 01/16/18 08:00 Room Air 01/16/18 07:00 98.3 18 96 98.3 Physical Exam General: Alert, Oriented X3, mild distress Heart: Regular rate, Normal S1, Normal S2 Lungs: Clear Abdomen: Normal bowel sounds, Soft Extremities: No clubbing Skin: No rashes Labs LABS Laboratory Tests Test 01/16/18 04:15 Sodium Level 141 mmol/L (136-145) Potassium Level 4.1 mmol/L (3.5-5.1) Chloride Level 104 mmol/L (98-107) Carbon Dioxide Level 28 mmol/L (21-32) Anion Gap 9 (6-14) Blood Urea Nitrogen 17 mg/dL (8-26) Creatinine 1.6 mg/dL (0.7-1.3) Estimated GFR (Cockcroft-Gault) 42.8 Glucose Level 96 mg/dL (70-99) Calcium Level 8.5 mg/dL (8.5-10.1) Review of Systems Review of Systems HEENT: No headache, no visual changes, no hearing changes GI: No abdominal pain, n/v SKIN: No breakdown, rashes. Assessment and Plan Assessmemt and Plan ASSESSMENT: Acute on chronic renal failure Chronic shortness of breath Leukocytosis Urinary retention UTI BPH PLAN: Prescribed Simvacort inhaler and Ciprofloxacin for take home Discharge today Cleared for discharge by urology & pulmonology Home Meds Consult PT/OT VTE Prophylaxis Vora Catheter w/ leg bag to remain in upon discharge - nursing to educate pt on vora catheter care Per Urology, continue flomax as an outpatient Per Pulmonology, one dose of Lasix would help him improve Pt has appointment set to see Dr. Oreilly next week for voiding trial on 01/21/18 at 0940. Comment Review of Relevant I have reviewed the following items lyndon (where applicable) has been applied. Labs Laboratory Tests Test 01/15/18 02:50 01/16/18 04:15 White Blood Count 5.1 x10^3/uL (4.0-11.0) Red Blood Count 3.50 x10^6/uL (4.30-5.70) Hemoglobin 10.8 g/dL (13.0-17.5) Hematocrit 31.5 % (39.0-53.0) Mean Corpuscular Volume 90 fL (79-100) Mean Corpuscular Hemoglobin 31 pg (25-35) Mean Corpuscular Hemoglobin Concent 34 g/dL (31-37) Red Cell Distribution Width 15.4 % (11.5-14.5) Platelet Count 173 x10^3/uL (140-400) Neutrophils (%) (Auto) 63 % (31-73) Lymphocytes (%) (Auto) 19 % (24-48) Monocytes (%) (Auto) 14 % (0-9) Eosinophils (%) (Auto) 3 % (0-3) Basophils (%) (Auto) 1 % (0-3) Neutrophils # (Auto) 3.2 x10^3uL (1.8-7.7) Lymphocytes # (Auto) 1.0 x10^3/uL (1.0-4.8) Monocytes # (Auto) 0.7 x10^3/uL (0.0-1.1) Eosinophils # (Auto) 0.1 x10^3/uL (0.0-0.7) Basophils # (Auto) 0.0 x10^3/uL (0.0-0.2) Sodium Level 139 mmol/L (136-145) 141 mmol/L (136-145) Potassium Level 4.2 mmol/L (3.5-5.1) 4.1 mmol/L (3.5-5.1) Chloride Level 108 mmol/L (98-107) 104 mmol/L (98-107) Carbon Dioxide Level 21 mmol/L (21-32) 28 mmol/L (21-32) Anion Gap 10 (6-14) 9 (6-14) Blood Urea Nitrogen 18 mg/dL (8-26) 17 mg/dL (8-26) Creatinine 1.4 mg/dL (0.7-1.3) 1.6 mg/dL (0.7-1.3) Estimated GFR (Cockcroft-Gault) 50.0 42.8 Glucose Level 104 mg/dL (70-99) 96 mg/dL (70-99) Calcium Level 8.2 mg/dL (8.5-10.1) 8.5 mg/dL (8.5-10.1) Magnesium Level 1.8 mg/dL (1.8-2.4) Laboratory Tests Test 01/16/18 04:15 Sodium Level 141 mmol/L (136-145) Potassium Level 4.1 mmol/L (3.5-5.1) Chloride Level 104 mmol/L (98-107) Carbon Dioxide Level 28 mmol/L (21-32) Anion Gap 9 (6-14) Blood Urea Nitrogen 17 mg/dL (8-26) Creatinine 1.6 mg/dL (0.7-1.3) Estimated GFR (Cockcroft-Gault) 42.8 Glucose Level 96 mg/dL (70-99) Calcium Level 8.5 mg/dL (8.5-10.1) Microbiology 01/12/18 Urine Culture - Final, Complete 01/12/18 Urine Culture Result 1 (CHANDRA) - Final, Complete 01/12/18 Antimicrobic Susceptibility - Final, Complete Medications Current Medications Tamsulosin HCl (Flomax) 0.4 mg 1X ONCE PO Last administered on 01/12/18at 11: 50; Start 01/12/18 at 11:00; Stop 01/12/18 at 11:01; Status DC Albuterol/ Ipratropium (Duoneb) 3 ml 1X ONCE NEB Last administered on at 11:33; Start 01/12/18 at 11:00; Stop 01/12/18 at 11:01; Status DC Acetaminophen/ Hydrocodone Bitart (Lortab 5/325) 1 tab 1X ONCE PO Last administered on 01/12/18at 11:51; Start 01/12/18 at 11:30; Stop 01/12/18 at 11 :33; Status DC Ceftriaxone Sodium 50 ml @ 100 mls/hr 1X ONCE IV Last administered on at 12:15; Start 01/12/18 at 12:15; Stop 01/12/18 at 12:44; Status DC Morphine Sulfate (Morphine Sulfate) 5 mg 1X ONCE IV Last administered on 01/12at 13:05; Start 01/12/18 at 13:15; Stop 01/12/18 at 13:16; Status DC Sodium Chloride 1,000 ml @ 1,000 mls/hr 1X ONCE IV Last administered on 01/12at 14:31; Start 01/12/18 at 14:30; Stop 01/12/18 at 15:29; Status DC Ondansetron HCl (Zofran) 4 mg PRN Q8HRS PRN IV NAUSEA/VOMITING Last administered on 01/12/18at 21:11; Start 01/12/18 at 14:30; Stop 01/13/18 at 14 :29; Status DC Morphine Sulfate (Morphine Sulfate) 4 mg PRN Q2HR PRN IV PAIN; Start 01/12/18 at 14:30; Stop 01/13/18 at 14:29; Status DC Acetaminophen (Tylenol) 650 mg PRN Q4HRS PRN PO FEVER; Start 01/12/18 at 14:30 ; Stop 01/13/18 at 14:29; Status DC Sodium Chloride 1,000 ml @ 100 mls/hr Q10H IV Last administered on 01/14/18at 20:16; Start 01/12/18 at 14:30; Stop 01/15/18 at 11:03; Status DC Ciprofloxacin/ Dextrose 200 ml @ 200 mls/hr Q12HR IV Last administered on at 08:53; Start 01/12/18 at 21:00 Tamsulosin HCl (Flomax) 0.4 mg DAILY PO Last administered on 01/15/18at 09:43; Start 01/13/18 at 09:00; Stop 01/15/18 at 16:18; Status DC Ondansetron HCl (Zofran) 4 mg 1X ONCE IV Last administered on 01/12/18 14:31 ; Start 01/12/18 at 14:30; Stop 01/12/18 at 14:31; Status DC Aspirin (Ecotrin) 325 mg DAILY PO Last administered on 01/16/18at 08:52; Start 01/13/18 at 09:00 Atorvastatin Calcium (Lipitor) 20 mg QHS PO Last administered on 01/15/18 20: 32; Start 01/12/18 at 21:00 Metoprolol Succinate (Toprol Xl) 25 mg HS PO Last administered on 01/15/18at 20 :33; Start 01/12/18 at 21:00 Pantoprazole Sodium (Protonix) 40 mg DAILYAC PO Last administered on at 08:53; Start 01/13/18 at 07:30 Lisinopril (Prinivil) 2.5 mg DAILY PO Last administered on 01/16/18at 08:53; Start 01/13/18 at 09:00 Oxycodone/ Acetaminophen (Percocet 5/325) 2 tab PRN Q4HRS PRN PO MODERATE PAIN , 2ND CHOICE Last administered on 01/15/18at 22:12; Start 01/12/18 at 17:45 Tamsulosin HCl (Flomax) 0.4 mg QHS PO Last administered on 01/15/18at 20:32; Start 01/12/18 at 21:00 Sodium Chloride 1,000 ml @ 75 mls/hr [id number] IV ; Start 01/12/18 at 17:45; Stop 01/12/18 at 19:12; Status DC Promethazine HCl/ Codeine (Phenergan With Codeine Oral Syrup) 5 ml PRN Q4HRS PRN PO COUGH Last administered on 01/15/18at 20:32; Start 01/12/18 at 20:45 Promethazine HCl/ Codeine (Phenergan With Codeine Oral Syrup) 10 ml PRN Q4HRS PRN PO COUGH; Start 01/12/18 at 20:45 Sodium Chloride 500 ml @ 500 mls/hr 1X ONCE IV Last administered on at 05:19; Start 01/13/18 at 05:30; Stop 01/13/18 at 06:29; Status DC Influenza Virus Vaccine (Afluria Trivalent [id number] Syringe) 0.5 ml ONCE ONCE VAX IM Last administered on 01/13/18at 09:45; Start 01/13/18 at 11:00; Stop 01/13/18 at 11:01; Status DC Lactobacillus Rhamnosus (Culturelle) 1 cap BID PO Last administered on at 08:52; Start 01/13/18 at 21:00 Sodium Chloride 500 ml @ 500 mls/hr 1X ONCE IV Last administered on at 12:03; Start 01/13/18 at 12:00; Stop 01/13/18 at 12:59; Status DC Zolpidem Tartrate (Ambien) 5 mg PRN QHS PRN PO INSOMNIA Last administered on at 22:02; Start 01/13/18 at 21:15 Acetaminophen (Tylenol) 650 mg PRN Q4HRS PRN PO FEVER Last administered on at 20:03; Start 01/13/18 at 23:45 Furosemide (Lasix) 40 mg 1X ONCE IVP Last administered on 01/15/18at 09:46; Start 01/15/18 at 09:45; Stop 01/15/18 at 09:46; Status DC Active Scripts Active [Oxycodone Hcl/Acetaminophen] 1 TAB Tablet 2 Tab PO PRN Q4HRS PRN Plavix (Clopidogrel Bisulfate) 75 Mg Tablet 75 Mg PO DAILYWBKFT Lipitor (Atorvastatin Calcium) 20 Mg Tablet 20 Mg PO QHS Reported Lisinopril 2.5 Mg Tablet 2.5 Mg PO DAILY Metoprolol Succinate ( Xl ) (Metoprolol Succinate) 25 Mg Tab.er.24h 25 Mg PO HS Protonix (Pantoprazole Sodium) 40 Mg Tablet. 40 Mg PO DAILY Oxycodone-Acetaminophen 5-325 (Oxycodone Hcl/Acetaminophen) 1 Each Tablet 2 Each PO Q6HRS PRN Aspirin Ec (Aspirin) 325 Mg Tablet.dr 1 Tab PO DAILY Vitals/I & O Vital Sign - Last 24 Hours 01/15/18 01/15/18 01/15/18 01/15/18 14:58 19:43 20:00 20:33 Temp 98.1 98.2 98.1 98.2 Pulse 67 74 74 Resp 18 18 B/P (MAP) 125/63 (83) 137/73 (94) 137/73 Pulse Ox 96 97 O2 Delivery Room Air Room Air Room Air 01/15/18 01/15/18 01/15/18 01/16/18 22:12 23:12 23:41 03:44 Temp 98.3 98.3 98.3 98.3 Pulse 68 71 Resp 18 18 B/P (MAP) 138/66 (90) 145/79 (101) Pulse Ox 97 97 O2 Delivery Room Air Room Air Room Air Room Air 01/16/18 01/16/18 01/16/18 07:00 08:00 08:53 Temp 98.3 98.3 Pulse 74 74 Resp 18 B/P (MAP) 155/75 (101) 155/75 Pulse Ox 96 O2 Delivery Room Air Room Air Intake and Output 01/15/18 01/15/18 01/16/18 15:00 23:00 07:00 Intake Total 600 ml 350 ml Output Total 2750 ml 850 ml 800 ml Balance -2150 ml -850 ml -450 ml MARC LEE III DO Jan 16, 2018 11:39
== END 2018-01-16 11:16 | disposition home or self-care (01) | DRG 871 ==
LOC: ER 09:49 → 6 SOUTH 13:46
PROVIDERS: ADMIT Internal Medicine; ATTEND Internal Medicine
DX: A41.9 Sepsis, unspecified organism (principal); N17.0 Acute kidney failure with tubular necrosis; N10 Acute pyelonephritis; I13.0 Hypertensive heart and chronic kidney disease with heart failure and stage 1 through stage 4 chronic kidney disease, or unspecified chronic kidney disease; I42.9 Cardiomyopathy, unspecified; J98.11 Atelectasis; N18.3 Chronic kidney disease, stage 3 (moderate); E78.00 Pure hypercholesterolemia, unspecified; E78.5 Hyperlipidemia, unspecified; I25.10 Atherosclerotic heart disease of native coronary artery without angina pectoris; I25.2 Old myocardial infarction; I50.9 Heart failure, unspecified; M19.90 Unspecified osteoarthritis, unspecified site; I77.810 Thoracic aortic ectasia; J44.9 Chronic obstructive pulmonary disease, unspecified; K21.9 Gastro-esophageal reflux disease without esophagitis; N32.3 Diverticulum of bladder; N40.1 Benign prostatic hyperplasia with lower urinary tract symptoms; R33.8 Other retention of urine; Z82.49 Family history of ischemic heart disease and other diseases of the circulatory system; Z83.3 Family history of diabetes mellitus; Z87.891 Personal history of nicotine dependence; Z95.1 Presence of aortocoronary bypass graft; Z79.899 Other long term (current) drug therapy
CPT/HCPCS: 36415; 51702; 71045; 71046; 71250; 74176; 80048; 80053; 81001; 83605; 83735; 83880; 84443; 84484; 85007; 85025; 87086; 87186; 90471; 90756; 93005; 94640; 96361; 96365; 96375; J0690; J0744; J1940; J2270; J2405; J7030; J7040; J7620; 99285-25; Q2035

== ENCOUNTER → 2018-01-28 | Outpatient (CLI) | payer OTHER ==
[2018-01-16 08:53] VITALS: BP 155/75
--- NOTE | 2018-01-28 10:59 | CARD ---
MR#: [id number] Date of Study: 01/28/2018 Ordering Physician: DC PALAFOX, Referring Physician: DC PALAFOX, Tech: Margarita Anderson MALCOM APPROVED REPORT EXAM: Two-dimensional and M-mode echocardiogram with Doppler and color Doppler. Other Information Quality : Technically LimitedHR: 64bpm Rhythm : NSRTechnically limited study due to CABG and emphysema. INDICATION Congestive Heart Failure Surgery/Intervention CABD DIMENSIONS RVDd3.5 (2.9-3.5cm)Left Atrium(2D)4.1 (1.6-4.0cm) IVSd1.5 (0.7-1.1cm)Aortic Root(2D)3.3 (2.0-3.7cm) LVDd4.6 (3.9-5.9cm)LVOT Diameter2.0 (1.8-2.4cm) PWd1.2 (0.7-1.1cm)LVDs3.3 (2.5-4.0cm) LVEF(%)50.0 (>50%) Aortic Valve AoV Peak Eddie.114.6cm/sAoV VTI23.8cm AO Peak GR.5.3mmHgLVOT Peak Eddie.109.3cm/s AO Mean GR.3mmHgAVA (VMAX)3.13cm2 GODWIN (VTI)3.00cm2 Mitral Valve MV E Avnesmgy55.8cm/sMV DECEL VJZP121tp MV A Jumncohf70.8cm/sE/A Ratio0.6 MV A Vemriqta783fm Pulmonary Valve PV Peak Qvlilfkl61.9cm/s Tricuspid Valve TR P. Lksipoyg300it/sRAP VBGMUZAX5hxNs TR Peak Gr.14bnRxYFWW08lxHm LEFT VENTRICLE The left ventricle is normal size. There is mild concentric left ventricular hypertrophy. Left ventri maritza ejection fraction is low normal. The Ejection Fraction is 50-55%. There is mild hypokinesis in th e apical septal wall. Transmitral Doppler flow pattern is Grade I-abnormal relaxation pattern. RIGHT VENTRICLE The right ventricle is mildly dilated. There is normal right ventricular wall thickness. The right ve ntricular systolic function is normal. ATRIA The left atrium is borderline dilated. The right atrium is mildly dilated. The interatrial septum is intact with no evidence for an atrial septal defect or patent foramen ovale as noted on 2-D or Dopple r imaging. AORTIC VALVE The aortic valve is mildly calcified. The aortic valve is probably trileaflet. Doppler and Color Flow revealed no significant aortic regurgitation. There is no significant aortic valvular stenosis. MITRAL VALVE The mitral valve is normal in structure and function. There is no evidence of mitral valve prolapse. There is no mitral valve stenosis. Doppler and Color Flow revealed trace mitral valve regurgitation. TRICUSPID VALVE The tricuspid valve is normal in structure and function. Doppler and Color Flow revealed trace tricus pid regurgitation. The PA pressure was estimated at 23 mmHg. There is no tricuspid valve prolapse or vegetation. There is no tricuspid valve stenosis. PULMONIC VALVE Pulmonic valve not well visualized. GREAT VESSELS The aortic root is normal in size. PERICARDIAL EFFUSION There is no evidence of significant pericardial effusion. Critical Notification Critical Value: No <Conclusion> The left ventricle is normal size. Left ventricle ejection fraction is low normal. The Ejection Fraction is 50-55%. There is mild hypokinesis in the apical septal wall. There is mild concentric left ventricular hypertrophy. There is no significant aortic valvular stenosis. Doppler and Color Flow revealed no significant aortic regurgitation. Doppler and Color Flow revealed trace mitral valve regurgitation. Doppler and Color Flow revealed trace tricuspid regurgitation. The PA pressure was estimated at 23 mmHg. Signed by : Dixon Hamilton MD Electronically Approved : 01/28/2018 10:57:49
== END | disposition home or self-care (01) ==
LOC: ECHO 09:45
PROVIDERS: ATTEND Internal Medicine Cardiovascular Disease
DX: I25.5 Ischemic cardiomyopathy (principal); I50.9 Heart failure, unspecified
CPT/HCPCS: 93306

== ENCOUNTER 2018-02-04 10:35 | Observation (INO) | payer OTHER ==
[~2018-02-04] VITALS: Ht 175.3 cm; Wt 88.5 kg
[2018-02-04] VITALS (7 sets, daily range): BP systolic 95–136; BP diastolic 57–92
[~2018-02-04 10:35] MED LIST changes: +BUDE10.22 IH; +CIPROFLOXACIN 400MG PREMIX 200 ML IV PRN; +FURO20TA3 PO; +HYDROmorphone 2 MG/ML VIAL IV PRN; +IV RINGERS,LACTATED 1000ML 1,000 ML IV SCH; +LIDOCAINE 1% PF 2 ML VIAL. ID PRN; +MORPHINE SULFATE 2 MG/ML VIAL. IV PRN; +ONDANSETRON PF 4 MG/2 ML VIAL. IV PRN; +PROCHLORPERAZINE 10 MG/2 ML VIAL. IV PRN; +TAMS0.4C2 PO; +fentaNYL PF VIAL 100 MCG/2 ML VIAL IV PRN
[2018-02-04] MEDS ORDERED: fentaNYL PF VIAL 100 MCG/2 ML VIAL ONE (11:24)
[2018-02-04] MEDS ORDERED: PROPOFOL 20 ML IV ONE (11:24)
[2018-02-04] MEDS ORDERED: LIDOCAINE 2% PF Vial for OR 5 ML VIAL. ONE (11:24)
[2018-02-04] MEDS ORDERED: PHENYLEPHRINE in 0.9% NACL PF 1 MG/10 ML SYRINGE. IV ONE (12:53)
[2018-02-04] MEDS ORDERED: ONDANSETRON PF 4 MG/2 ML VIAL. ONE (12:53)
[2018-02-04] MEDS ORDERED: DEXAMETHASONE SOD PHOS 20 MG/5 ML VIAL. ONE (12:53)
[2018-02-04] MEDS: IV RINGERS,LACTATED 1000ML 1,000 ML IV SCH ×2 (13:26→23:26)
--- NOTE | 2018-02-04 13:26 | PDOC4 ---
OPERATIVE NOTE Pre-Op Diagnosis: bph w obstruction Post-Op Diagnosis: same Procedure Performed: cysto , greenlight laser PVP. Surgeon: Anesthesia Type: ga Blood Loss: 5ml Specimans Obtained: none Findings: low to moderate lateral obstruction. mild bladder neck elevation Complications: none evident DONI FLYNN MD Feb 04, 2018 13:26
[2018-02-04] MEDS ORDERED: ONDANSETRON PF 4 MG/2 ML VIAL. IV PRN (13:30)
[2018-02-04] MEDS ORDERED: 0.9 % SODIUM CHLORIDE 10 ML DISP.SYRIN. IV PRN (13:30)
[2018-02-04] MEDS ORDERED: NALOXONE 0.4 MG/ML VIAL. IV PRN (13:30)
[2018-02-04] MEDS ORDERED: HYDROcodone/APAP 5/325MG 1 TAB TABLET PO PRN (13:30)
--- NOTE | 2018-02-04 13:41 | EKG ---
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
--- NOTE | 2018-02-04 14:11 | OP ---
DATE OF SURGERY: 02/04/2018 PREOPERATIVE DIAGNOSES: Benign prostatic hypertrophy with obstruction. POSTOPERATIVE DIAGNOSES: Benign prostatic hypertrophy with obstruction. PROCEDURE: Cystoscopy with laser GreenLight for vaporization of the prostate. SURGEON: Richelle Oreilly MD. ANESTHESIA: General. CONDITION: Stable. COMPLICATIONS: None. ESTIMATED BLOOD LOSS: 5 mL. FINDINGS: Low to moderate obstruction from lateral lobe, slightly elevated bladder neck versus small median lobe. Ureteral orifices were away from the area of vaporization. No evidence of anterior or posterior urethral stricture disease. DESCRIPTION OF DETAIL: The patient was taken back to the procedure room and placed under general anesthesia in supine position per the protocol. He was prepped and draped in the usual sterile fashion in dorsal lithotomy position. Timeout was performed. SCDs were attached. IV antibiotics were administered. Previously, his urethral catheter was removed before he was prepped. A 23-Taiwanese continuous cystoscope was placed with the MoXy XPS laser fiber in the working channel. I first marked my area of proximal and distal limit of dissection with a setting of 80. The rest of the prostate was opened up with a setting of 120 maya with continuous overlaps and swipes. With the solution turned off upon parking at the [employer], he had a wide open prostate fossa in a shape of wine barrel. Pinpoint hemostasis was obtained. Cystoscope was removed and a 20-Taiwanese catheter was placed per urethra into the bladder. Irrigation showed no significant bleeding. The patient was awakened and taken to the PACU in stable condition. We will admit postoperative for just a 23-hour observation as per Cardiology recommendations. RICHELLE OREILLY MD DR: CHAPARRO/nts JOB#: [id number] / [id number]
[2018-02-04] MEDS: ALBUTEROL SULFATE 2.5 MG/3 ML NEBU. NEB SCH ×2 (14:20→20:24)
[2018-02-04] MEDS: PHENAZOPYRIDINE 200 MG TABLET. PO SCH ×2 (14:52→21:10)
--- NOTE | 2018-02-04 17:27 | DISCH ---
DISCHARGE INSTRUCTIONS Condition on Discharge Condition on Discharge: Stable Activity After Discharge Activity Instructions for Disc: Progressive ambulation Lifting Instructions after Dis: Do not lift >10 pounds Driving Instructions after Dis: Do not drive Weight Bearing Status after Di: No restrictions Diet after Discharge Diet after Discharge: Cardiac Diet Texture: Regular Swallowing Supervision: None needed Wound Incision Care Wound/Incision Care: No wound care needed Contacting the after DC Call your doctor for: Concerns you may have Follow-Up Follow up with: dr marie 2 weeks Treatment/Equipment after DC Adaptive Equipment Issued: DONI Andersen MD Feb 04, 2018 17:27
[2018-02-04] MEDS: BUDESONIDE 0.5 MG/2 ML NEBU. NEB SCH (20:25)
[2018-02-04] MEDS: DOCUSATE SODIUM 100 MG CAPSULE. PO SCH (21:00)
[2018-02-04] MEDS ORDERED: ATORVASTATIN CALCIUM 20 MG TABLET PO SCH (21:00)
[2018-02-04] MEDS ORDERED: METOPROLOL SUCC 24HR ER 25 MG TAB.ER.24H. PO SCH (21:00)
[2018-02-04] MEDS ORDERED: NON FORMULARY ITEM (Budesonide/Formoterol Fumarate (Symbicort 80-4.5 Mcg Inhaler) 1 PUFF) IH SCH (21:00)
[2018-02-05] MEDS: ALBUTEROL SULFATE 2.5 MG/3 ML NEBU. NEB SCH ×3 (01:28→12:32)
[2018-02-05 03:00] VITALS: BP 108/67
[2018-02-05] MEDS ORDERED: PANTOPRAZOLE 40 MG TABLET.DR. PO SCH (06:00)
[2018-02-05] MEDS: BUDESONIDE 0.5 MG/2 ML NEBU. NEB SCH (06:46)
[2018-02-05 07:00] VITALS: BP 125/64
[2018-02-05] MEDS: IV RINGERS,LACTATED 1000ML 1,000 ML IV SCH (09:00)
[2018-02-05] MEDS ORDERED: LISINOPRIL 5 MG TABLET. PO SCH (09:00)
[2018-02-05] MEDS ORDERED: FUROSEMIDE 20 MG TABLET PO SCH (09:00)
[2018-02-05] MEDS ORDERED: ASPIRIN ENTERIC COATED 325 MG TABLET.DR. PO SCH (09:00)
[2018-02-05] MEDS ORDERED: TAMSULOSIN 0.4 MG CAP.ER.24H. PO SCH (09:00)
[2018-02-05] MEDS: DOCUSATE SODIUM 100 MG CAPSULE. PO SCH (09:02)
[2018-02-05] MEDS: PHENAZOPYRIDINE 200 MG TABLET. PO SCH ×2 (09:02→14:11)
[2018-02-05 11:27] VITALS: BP 112/66
--- NOTE | 2018-02-05 13:48 | PDOC2 ---
CONSULT Date of Consult Date of Consult DATE: 02/05/18 TIME: 13:47 Reason for Consult Reason for Consult: Significant History of Cardiac Disease Referring Physician Referring Physician: Dr. Richelle Oreilly Identification/Chief Complaint Chief Complaint Urinary Retention Source Source: Caregiver, Patient History of Present Illness Reason for Visit: Anil Altamirano is a 72 y/o male with a past medical history of several cardiac bypasses, and 3 myocardial infarctions (most recent in 2010), presenting with urinary retention. On January 11, patient was admitted to the [facility] ED for urinary retention. He was incapable of maintaining a urinary stream, although felt the urge to go frequently multiple times. He then tried to meet up with his primary care doctor, but could not get an appointment. He then had a brief two day hospitalization, and then was released. He had surgery for his BPH yesterday, and said that the urologist was keeping him here until he could empty his bladder to 250 ccs of fluid, but he has not been able to reach that quantity, as he is continually making more urine. He has been urinating frequently, but in low quantity. Cardiac History: He said that some of his stents have failed, and that some of his heart issues are due to this failure, where "half of his cardiac muscle has ". He has had two bypass surgeries, with one where his stents have failed, as well as having 3 heart attacks, with one directly proceeding after his hip surgery. He denies any cardiac issues currently. Past Medical History Cardiovascular: CAD, CHF, HTN, Hyperlipidemia Pulmonary: COPD CENTRAL NERVOUS SYSTEM: Other GI: GERD Heme/Onc: No pertinent hx Hepatobiliary: No pertinent hx Psych: No pertinent hx Rheumatologic: No pertinent hx Infectious disease: No pertinent hx Renal/: Chronic renal insuff, Benign prostatic enlarg. Endocrine: No pertinent hx Past Surgical History Past Surgical History: CABG, Other Family History Family History: Hypertension Social History ALCOHOL: none Drugs: None Lives: with Family Current Medications Current Medications Current Medications Prochlorperazine Edisylate (Compazine) 5 mg PACU PRN PRN IV NAUSEA, MRX1; Start 02/04/18 at 07:00; Stop 02/05/18 at 06:59; Status DC Hydromorphone HCl (Dilaudid) 0.5 mg PRN Q10MIN PRN IV SEV PAIN, Second choice; Start 02/04/18 at 07:00; Stop 02/05/18 at 06:59; Status DC Lidocaine HCl (Xylocaine-Mpf 1% 2ml Vial) 2 ml PRN 1X PRN ID IV START; Start 02/04/18 at 07:00; Stop 02/05/18 at 06:59; Status DC Ringer's Solution 1,000 ml @ 30 mls/hr Q24H IV ; Start 02/04/18 at 07:00; Stop 02/04/18 at 18:59; Status DC Morphine Sulfate (Morphine Sulfate) 1 mg PRN Q10MIN PRN IV SEVERE PAIN; Start 02/04/18 at 07:00; Stop 02/05/18 at 06:59; Status DC Fentanyl Citrate (Fentanyl 2ml Vial) 50 mcg PRN Q5MIN PRN IV MODERATE TO SEVERE PAIN; Start 02/04/18 at 07:00; Stop 02/05/18 at 06:59; Status DC Fentanyl Citrate (Fentanyl 2ml Vial) 25 mcg PRN Q5MIN PRN IV MILD PAIN; Start 02/04/18 at 07:00; Stop 02/05/18 at 06:59; Status DC Ondansetron HCl (Zofran) 4 mg PRN Q6HRS PRN IV NAUSEA/VOMITING; Start 02/04/18 at 07:00; Stop 02/05/18 at 06:59; Status DC Ciprofloxacin/ Dextrose 200 ml @ 200 mls/hr PREOP 1X PRN IV PRE-OP Last administered on 02/04/18at 12:43; Start 02/04/18 at 06:00; Stop 02/04/18 at 12:56 ; Status DC Propofol 20 ml @ As Directed STK-MED ONCE IV ; Start 02/04/18 at 11:24; Stop at 11:25; Status DC Lidocaine HCl (Lidocaine Pf 2% Vial) 5 ml STK-MED ONCE .ROUTE ; Start 02/04/18 at 11:24; Stop 02/04/18 at 11:25; Status DC Fentanyl Citrate (Fentanyl 2ml Vial) 100 mcg STK-MED ONCE .ROUTE ; Start at 11:24; Stop 02/04/18 at 11:25; Status DC Phenylephrine HCl (PHENYLEPHRINE in 0.9% NACL PF) 1 mg STK-MED ONCE IV ; Start 02/04/18 at 12:53; Stop 02/04/18 at 12:54; Status DC Dexamethasone Sodium Phosphate (Decadron) 20 mg STK-MED ONCE .ROUTE ; Start 02/04/18 at 12:53; Stop 02/04/18 at 12:54; Status DC Ondansetron HCl (Zofran) 4 mg STK-MED ONCE .ROUTE ; Start 02/04/18 at 12:53; Stop 02/04/18 at 12:54; Status DC Ephedrine Sulfate (Akovaz) 50 mg STK-MED ONCE .ROUTE ; Start 02/04/18 at 13:17; Stop 02/04/18 at 13:18; Status DC Aspirin (Ecotrin) 325 mg DAILY PO Last administered on 02/05/18at 09:02; Start 02/05/18 at 09:00 Atorvastatin Calcium (Lipitor) 20 mg QHS PO Last administered on 02/04/18at 21: 10; Start 02/04/18 at 21:00 Furosemide (Lasix) 20 mg DAILY PO Last administered on 02/05/18at 09:02; Start 02/05/18 at 09:00 Metoprolol Succinate (Toprol Xl) 25 mg HS PO Last administered on 02/04/18at 21: 10; Start 02/04/18 at 21:00 Pantoprazole Sodium (Protonix) 40 mg DAILY06 PO Last administered on 02/05/18at 06:08; Start 02/05/18 at 06:00 Tamsulosin HCl (Flomax) 0.4 mg DAILY PO Last administered on 02/05/18at 09:01; Start 02/05/18 at 09:00 Non-Formulary Medication (Budesonide/ Formoterol Fumarate (Symbicort 80-4.5 Mcg Inhaler)) 1 puff BID IH ; Start 02/04/18 at 21:00; Status UNV Lisinopril (Prinivil) 2.5 mg DAILY PO Last administered on 02/05/18at 09:03; Start 02/05/18 at 09:00 Phenazopyridine HCl (Pyridium) 200 mg TID PO Last administered on 02/05/18at 09: 02; Start 02/04/18 at 14:00 Naloxone HCl (Narcan) 0.1 mg PRN Q2MIN PRN IV SEE COMMENTS; Start 02/04/18 at 13:30 Sodium Chloride (Normal Saline Flush) 3 ml QSHIFT PRN IV AFTER MEDS AND BLOOD DRAWS; Start 02/04/18 at 13:30 Ringer's Solution 1,000 ml @ 100 mls/hr Q10H IV ; Start 02/04/18 at 13:26 Acetaminophen/ Hydrocodone Bitart (Lortab 5/325) 1 tab PRN Q4HRS PRN PO MILD PAIN Last administered on 02/04/18at 19:11; Start 02/04/18 at 13:30 Ondansetron HCl (Zofran) 4 mg PRN Q6HRS PRN IV NAUESA, 1ST CHOICE; Start at 13:30 Docusate Sodium (Colace) 100 mg BID PO Last administered on 02/05/18at 09:02; Start 02/04/18 at 21:00 Albuterol Sulfate (Ventolin Neb Soln) 2.5 mg Q6HRS NEB Last administered on 02/05/18at 12:32; Start 02/04/18 at 14:20 Budesonide (Pulmicort) 0.5 mg RTBID NEB Last administered on 02/05/18at 06:46; Start 02/04/18 at 20:00 Active Scripts Active Lipitor (Atorvastatin Calcium) 20 Mg Tablet 20 Mg PO QHS Reported Symbicort 80-4.5 Mcg Inhaler (Budesonide/Formoterol Fumarate) 10.2 Gm Hfa.aer.ad 1 Puff IH BID Furosemide 20 Mg Tablet 20 Mg PO DAILY Tamsulosin Hcl 0.4 Mg Cap.er.24h 0.4 Mg PO DAILY Lisinopril 2.5 Mg Tablet 5 Mg PO DAILY Metoprolol Succinate ( Xl ) (Metoprolol Succinate) 25 Mg Tab.er.24h 25 Mg PO HS Protonix (Pantoprazole Sodium) 40 Mg Tablet.dr 40 Mg PO DAILY Aspirin Ec (Aspirin) 325 Mg Tablet.dr 1 Tab PO DAILY Allergies Allergies: Coded Allergies: No Known Drug Allergies (Unverified , 02/04/18) Physical Exam General: Alert, Oriented X3, Cooperative HEENT: Atraumatic, Mucous membr. moist/pink Lungs: Clear to auscultation, Normal air movement Heart: Regular rate, Normal S1, Normal S2 Neuro: Normal speech Psych/Mental Status: Mental status NL, Mood NL Vitals VITALS Vital Signs Date Time Temp Pulse Resp B/P (MAP) Pulse Ox O2 Delivery O2 Flow Rate FiO2 02/05/18 12:33 Room Air 02/05/18 11:27 97.5 69 20 112/66 (81) 95 97.5 02/04/18 13:28 10 Assessment/Plan Assessment/Plan Anil Altamirano is a 72 y/o male with a past medical history of several cardiac bypasses, and 3 myocardial infarctions (most recent in 2010), presenting with urinary retention. Patient is compensated from a cardiac perspective, Agree with current treatment plan. This pt has seen Dr Vega in the past. If he needs further cardiac care I would suggest to change the consult to Dr Vega otherwise pt may be discharged There will not be a charge from me to this pt Thank you for asking me to see this patient. AMBER DURAND MD Feb 05, 2018 13:48
--- NOTE | 2018-02-05 13:58 | PDOC ---
PROGRESS NOTE SUBJECTIVE: ROS: ROS: RESPIRATORY: Shortness of breath denies. Cough denies. UROLOGY: Denies blood in urine. Denies difficulty urinating HPI: Voiding since vora removed, getting easier to void each time, he reports stronger stream than he has had in a long time. PVR 200-450 ml today, voding 175 - 350 ml at a time. No dysuria. No other complaints. OBJECTIVE: Vital Signs: Vital Signs Date Time Temp Pulse Resp B/P (MAP) Pulse Ox O2 Delivery O2 Flow Rate FiO2 02/05/18 12:33 Room Air 02/05/18 11:27 97.5 69 20 112/66 (81) 95 Room Air 97.5 02/05/18 09:03 68 125/64 02/05/18 08:00 Room Air 02/05/18 07:00 97.5 68 18 125/64 (84) 94 Room Air 97.5 02/05/18 06:47 93 Room Air 02/05/18 03:00 98.1 59 16 108/67 (81) 97 Room Air 98.1 02/05/18 01:27 Room Air 02/04/18 23:00 97.8 65 16 95/57 (70) 94 Room Air 97.8 02/04/18 21:10 78 102/65 02/04/18 20:30 Room Air 02/04/18 20:22 97 Room Air 02/04/18 20:15 16 Room Air 02/04/18 19:11 95 Room Air 02/04/18 18:00 82 106/61 (76) 95 Room Air 02/04/18 17:45 Room Air 02/04/18 17:00 79 113/67 (82) 95 Room Air 02/04/18 16:00 76 114/60 (78) 96 Room Air 02/04/18 15:30 80 95 Room Air 02/04/18 15:00 69 97 Room Air 02/04/18 14:45 63 131/80 (97) 97 Room Air 02/04/18 14:30 68 128/69 (88) 97 Room Air 02/04/18 14:15 97.7 64 18 136/92 (107) 98 Room Air 97.7 02/04/18 13:58 97.7 63 16 118/69 96 Room Air 97.7 I & O Intake and Output 02/05/18 07:00 Intake Total 1400 ml Output Total 1200 ml Balance 200 ml Intake Oral 800 ml IV Total 600 ml Output Urine Total 1200 ml PHYSICAL EXAM: Physical Exam: General: Pleasant, no acute distress, well groomed Respiratory: unlabored breathing Cardiovascular: no peripheral edema Abdomen: nontender, nondistended, no hepatosplenomegaly, no masses Psych: normal mood, affect. Alert and oriented x 3. Voided urine clear yellow MEDICATIONS: Current Medications Medications (Trade) Dose Ordered Sig/Mj Start Time Stop Time Status Last Admin Dose Admin Acetaminophen/ Hydrocodone Bitart (Lortab 5/325) 1 tab PRN Q4HRS PRN 02/04/18 13:30 02/04/18 19:11 1 TAB Albuterol Sulfate (Ventolin Neb Soln) 2.5 mg Q6HRS 02/04/18 14:20 02/05/18 12:32 2.5 MG Aspirin (Ecotrin) 325 mg DAILY 02/05/18 09:00 02/05/18 09:02 325 MG Atorvastatin Calcium (Lipitor) 20 mg QHS 02/04/18 21:00 02/04/18 21:10 20 MG Budesonide (Pulmicort) 0.5 mg RTBID 02/04/18 20:00 02/05/18 06:46 0.5 MG Ciprofloxacin/ Dextrose 200 ml @ 200 mls/hr PREOP 1X PRN 02/04/18 06:00 02/04/18 12:56 DC 02/04/18 12:43 200 MLS/HR Dexamethasone Sodium Phosphate (Decadron) 20 mg STK-MED ONCE 02/04/18 12:53 02/04/18 12:54 DC Docusate Sodium (Colace) 100 mg BID 02/04/18 21:00 02/05/18 09:02 100 MG Ephedrine Sulfate (Akovaz) 50 mg STK-MED ONCE 02/04/18 13:17 02/04/18 13:18 DC Fentanyl Citrate (Fentanyl 2ml Vial) 100 mcg STK-MED ONCE 02/04/18 11:24 02/04/18 11:25 DC Furosemide (Lasix) 20 mg DAILY 02/05/18 09:00 02/05/18 09:02 20 MG Hydromorphone HCl (Dilaudid) 0.5 mg PRN Q10MIN PRN 02/04/18 07:00 02/05/18 06:59 DC Lidocaine HCl (Lidocaine Pf 2% Vial) 5 ml STK-MED ONCE 02/04/18 11:24 02/04/18 11:25 DC Lidocaine HCl (Xylocaine-Mpf 1% 2ml Vial) 2 ml PRN 1X PRN 02/04/18 07:00 02/05/18 06:59 DC Lisinopril (Prinivil) 2.5 mg DAILY 02/05/18 09:00 02/05/18 09:03 2.5 MG Metoprolol Succinate (Toprol Xl) 25 mg HS 02/04/18 21:00 02/04/18 21:10 25 MG Morphine Sulfate (Morphine Sulfate) 1 mg PRN Q10MIN PRN 02/04/18 07:00 02/05/18 06:59 DC Naloxone HCl (Narcan) 0.1 mg PRN Q2MIN PRN 02/04/18 13:30 Non-Formulary Medication (Budesonide/ Formoterol Fumarate (Symbicort 80-4.5 Mcg Inhaler)) 1 puff BID 02/04/18 21:00 UNV Ondansetron HCl (Zofran) 4 mg PRN Q6HRS PRN 02/04/18 13:30 Pantoprazole Sodium (Protonix) 40 mg DAILY06 02/05/18 06:00 02/05/18 06:08 40 MG Phenazopyridine HCl (Pyridium) 200 mg TID 02/04/18 14:00 02/05/18 09:02 200 MG Phenylephrine HCl (PHENYLEPHRINE in 0.9% NACL PF) 1 mg STK-MED ONCE 02/04/18 12:53 02/04/18 12:54 DC Prochlorperazine Edisylate (Compazine) 5 mg PACU PRN PRN 02/04/18 07:00 02/05/18 06:59 DC Propofol 20 ml @ As Directed STK-MED ONCE 02/04/18 11:24 02/04/18 11:25 DC Ringer's Solution 1,000 ml @ 100 mls/hr Q10H 02/04/18 13:26 Sodium Chloride (Normal Saline Flush) 3 ml QSHIFT PRN 02/04/18 13:30 Tamsulosin HCl (Flomax) 0.4 mg DAILY 12/6/18 09:00 02/05/18 09:01 0.4 MG ASSESSMENT & PLAN POD # 1 Greenlight laser of prostate. Voiding ok. d/c to home later today if ok with cardiology f/u with / Denilson 1-2 weeks GRETCHEN FONTENOT MD Feb 05, 2018 13:58
--- NOTE | 2018-02-05 14:31 | DS ---
DATE OF DISCHARGE: 02/05/2018 ADMITTING DIAGNOSES: Benign prostatic hypertrophy with obstruction. PROCEDURE PERFORMED: Cystoscopy with GreenLight laser vaporization of the prostate. HOSPITAL COURSE: The patient underwent GreenLight laser vaporization of the prostate by Dr. Oreilly on 02/04/2018. The procedure was uncomplicated. His postoperative course was also uncomplicated, he was voiding without difficulty on postoperative day 1 and with no hematuria. Cardiology was consulted for management of his chronic heart disease. He had no worsening of his heart disease while in the hospital. He was discharged home on postoperative day 1. DISCHARGE MEDICATIONS: Continue all home medications including aspirin 325 mg daily, Lipitor 20 mg at night, Symbicort inhaler 1 puff twice per day, furosemide 20 mg daily, lisinopril 5 mg daily, metoprolol 25 mg daily, Protonix 40 mg daily and tamsulosin 0.4 mg daily. DISCHARGE DIET: Cardiac. ACTIVITY: Light activity. FOLLOWUP: With Dr. Oreilly in 2 weeks. CONDITION ON DISCHARGE: Stable. GRETCHEN FONTENOT MD DR: RUBEN/kwabena JOB#: [id number] / [id number]
[2018-02-05 15:00] VITALS: BP 116/62
== END 2018-02-05 16:50 | disposition home or self-care (01) ==
LOC: SURG 10:35 → 4 NORTH 13:00
PROVIDERS: ADMIT Urology; ATTEND Urology
DX: N40.1 Benign prostatic hyperplasia with lower urinary tract symptoms (principal); R33.8 Other retention of urine; I25.10 Atherosclerotic heart disease of native coronary artery without angina pectoris; I13.0 Hypertensive heart and chronic kidney disease with heart failure and stage 1 through stage 4 chronic kidney disease, or unspecified chronic kidney disease; I50.9 Heart failure, unspecified; N18.9 Chronic kidney disease, unspecified; N13.8 Other obstructive and reflux uropathy; K21.9 Gastro-esophageal reflux disease without esophagitis; J44.9 Chronic obstructive pulmonary disease, unspecified; E78.5 Hyperlipidemia, unspecified; Z95.1 Presence of aortocoronary bypass graft; Z82.49 Family history of ischemic heart disease and other diseases of the circulatory system
CPT/HCPCS: 52648; 93005; 94640; 94760; A7015; G0378; G0379; J1100; J2001; J2370; J2405; J2704; J3010; J7613; J7626

== ENCOUNTER → 2018-05-13 | Outpatient (CLI) | payer OTHER ==
[~2018-05-13] MED LIST changes: -CIPROFLOXACIN 400MG PREMIX 200 ML IV PRN; -HYDROmorphone 2 MG/ML VIAL IV PRN; -IV RINGERS,LACTATED 1000ML 1,000 ML IV SCH; -LIDOCAINE 1% PF 2 ML VIAL. ID PRN; -MORPHINE SULFATE 2 MG/ML VIAL. IV PRN; -ONDANSETRON PF 4 MG/2 ML VIAL. IV PRN; -PROCHLORPERAZINE 10 MG/2 ML VIAL. IV PRN; -fentaNYL PF VIAL 100 MCG/2 ML VIAL IV PRN
--- NOTE | 2018-05-14 16:35 | RAD ---
MR#: [id number] Date of Study: 05/13/2018 Ordering Physician: DC PALAFOX, Referring Physician: DC PALAFOX, Tech: Jc Jorgensen MBA, RDMS, RVT, RDCS, RTR APPROVED REPORT Patient Location : OUT-PATIENT Indications PAD Findings Grayscale images of the bilateral lower extremity superficial veins reveal that the previous greater saphenous veins were stripped bilaterally. The bilateral lesser saphenous veins do not show any obvious evidence of thrombus and also do not je w any evidence of reflux. Incidental note is made of large varicose veins in the superficial aspect of the right calf. Critical Notification Critical Value: No <Conclusion> No significant reflux in the bilateral lesser saphenous veins. Bilateral greater saphenous veins have been previously ablated/stripped Signed by : Dc Palafox, Electronically Approved : 05/14/2018 16:34:56
--- NOTE | 2018-05-14 16:39 | RAD ---
MR#: [id number] Date of Study: 05/13/2018 Ordering Physician: DC PALAFOX, Referring Physician: DC PALAFOX, Tech: Jc Jorgensen MBA, RDMS, RVT, RDCS, RTR APPROVED REPORT Patient Location: OUT-PATIENT Indications PAD VELOCITY AND DOPPLER WAVEFORM ANALYSIS RIGHT cm/secWaveformSeverity LEFT cm/secWaveform Severity dCFA 119.0BiphasicdCFA 88.0Triphasic Prof Fem Art. 68.0BiphasicProf Fem Art. 52.0Biphasic Fem Art Prox. 200.0TriphasicFem Art Prox. 198.0Triphasic Fem Art Mid. 311.0TriphasicFem Art Mid. 127.0Triphasic Fem Art Dist. 92.0TriphasicFem Art Dist. 85.0Triphasic Pop Art(Fossa) 70.0TriphasicPop Art(AK) 48.0Triphasic WILDERNESS GUIDE Prox. 60.0MonophasicPTA Prox. 47.0Monophasic WILDERNESS GUIDE Dist. 89.0MonophasicPTA Dist. 47.0Monophasic PRIYANK Prox. 48.0TriphasicATA Prox. 75.0Triphasic DPA 41MonophasicDPA 60Monophasic Image Findings Grayscale images of the bilateral lower extremity arterial vessels reveals diffuse athero-'s chronic plaque. Spectral waveforms and color Doppler in the common femoral and profunda femoris on the right are within normal limits. Velocities are elevated in the mid SFA suggestive of greater than 50% steno sis. There is 2 vessel runoff below the knee with nonvisualization of the peroneal artery. On the left there are triphasic waveforms from the common femoral artery to the popliteal segment. Be low the knee the posterior tibial and anterior tibial vessels demonstrate monophasic and triphasic wa veforms respectively without any focal stenosis. The peroneal artery again is not visualized. Critical Notification Critical Value: No <Conclusion> 1. Likely high-grade stenosis involving the right mid SFA. Signed by : Dc Palafox, Electronically Approved : 05/14/2018 16:39:06
== END | disposition home or self-care (01) ==
LOC: US 07:24
PROVIDERS: ATTEND Internal Medicine Cardiovascular Disease
DX: I73.9 Peripheral vascular disease, unspecified (principal); I83.92 Asymptomatic varicose veins of left lower extremity
CPT/HCPCS: 93925; 93970

== ENCOUNTER 2018-05-26 10:02 | Outpatient (CLI) | payer OTHER ==
[~2018-05-26] VITALS: Ht 175.3 cm; Wt 93.0 kg
[2018-05-26] VITALS (9 sets, daily range): BP systolic 97–139; BP diastolic 54–79
[2018-05-26] MEDS ORDERED: IODIXANOL 320 MG/ML 100 ML VIAL. ONE (10:46)
[2018-05-26] MEDS ORDERED: HEPARIN for ARTERIAL LINE 1,500 ML ONE (10:46)
[2018-05-26] MEDS ORDERED: LIDOCAINE 1% Multi-Dose 20 ML VIAL. ONE (10:46)
[2018-05-26 10:49] LABS: HEMATOCRIT 43.4 % (39.0-53.0); HEMOGLOBIN 13.8 g/dL (13.0-17.5); RED BLOOD COUNT 4.85 x10^6/uL (4.30-5.70); RED CELL DISTRIBUTION WIDTH 15.3 % (11.5-14.5); WHITE BLOOD COUNT 8.1 x10^3/uL (4.0-11.0)
[2018-05-26 10:51] LABS: CALCIUM 8.6 mg/dL (8.5-10.1); CREATININE 1.8 mg/dL (0.7-1.3); GFR 37.3; POTASSIUM 4.8 mmol/L (3.5-5.1)
[2018-05-26 10:58] LABS: PROTHROMBIN TIME PATIENT 12.4 SEC (11.7-14.0)
--- NOTE | 2018-05-26 10:58 | PDOC ---
MODERATE SEDATION ASSESSMENT RISKS/ALTERNATIVES Risks/Alternatives Risks and alternatives of this type of sedation and procedure discussed with: RISK/ALTERNATIVES: Patient H & P ON CHART H & P H & P on chart and reviewed for co-morbid conditions and appropriate labs. H&P ON CHART: Yes STATUS PREG STATUS ASSESSED: N/A MEDS/ALLERGIES REVIEWED Meds/Allergies Reviewed Medications and Allergies including time and route of recently administered narcotics and sedatives. MEDS/ALLERGIES REVIEWED: Yes ASA RATING ASA RATING: II AIRWAY ASSESSMENT Airway Assessment Airway patency, oral function limitations, presence of caps, crowns, dentures, partials, and ability to extend neck assessed. AIRWAY ASSESSMENT: Yes MALLAMPATI SCORE MALLAMPATI SCORE: II PRE-SEDATION ASSESSMENT PRE-SEDATION ASSESSMENT: Yes DC PALAFOX MD May 26, 2018 10:58
[2018-05-26] MEDS ORDERED: MIDAZOLAM HCL/PF 5 MG/5 ML VIAL. ONE (10:59)
[2018-05-26] MEDS ORDERED: HEPARIN for IV BOLUS 10,000 UNIT/10 ML VIAL. ONE (10:59)
[2018-05-26] MEDS ORDERED: fentaNYL PF VIAL 100 MCG/2 ML VIAL ONE (10:59)
[2018-05-26] MEDS ORDERED: HEPARIN for IV BOLUS 10,000 UNIT/10 ML VIAL. IV ONE (11:45)
[2018-05-26] MEDS ORDERED: MIDAZOLAM HCL/PF 5 MG/5 ML VIAL. IV ONE (11:45)
[2018-05-26] MEDS ORDERED: LIDOCAINE 1% Multi-Dose 20 ML VIAL. INJ ONE (11:45)
[2018-05-26] MEDS ORDERED: IODIXANOL 320 MG/ML 100 ML VIAL. IART ONE (11:45)
[2018-05-26] MEDS ORDERED: fentaNYL PF VIAL 100 MCG/2 ML VIAL IV ONE (11:45)
[2018-05-26] MEDS ORDERED: CONTRAST GIVEN. MC PRN (12:00)
--- NOTE | 2018-05-26 13:36 | CARD ---
MR#: [id number] Date of Study: 05/26/2018 Ordering Physician: DC PALAFOX, Referring Physician: DC PALAFOX, Tech: Angelalincoln Johnson RTR APPROVED REPORT Patient StatusCLI Jewel Inspector: Angela Johnson RTR Procedure(s) performed: Moderate Sedation time: 43 MIN FLUORO TIME: 2.6 MIN Abdominal aortogram with unilateral ileofemoral run-off HISTORY The patient is a 73 year-old male with a history of : coronary artery disease, tobacco history() , hy pertension, dyslipidemia. INDICATION FOR PROCEDURE The indication(s) include : Bilateral claudication. PROCEDURE NARRATIVE After appropriate informed consent, the patient was brought to the labor delivery rn and placed in the supine position. Preprocedural timeout was completed and confirmed the right patient and procedure. The bila teral groins were prepped and draped in usual sterile fashion. Moderate sedation acheived with Fentan yl and Versed. The patient received 2000 units of Heparin for anticoagulation. Access: Under lidocaine local anesthesia, a 5Fr introducer sheath was placed in the LCFA via the dmitriy fied seldinger technique with a J-tipped guidewire and an 18g needle. Diagnostic angiography was then performed using a 5Fr Omniflush catheter with digital subtraction angiography. Next, the contralater al (RCFA) was accessed with the aid of the Omniflush catheter and a J-tipped guidewire. The omniflush was then exchanged for a long angled glide catheter which was then placed in the RCFA. Repeat right lower extremity with DSA was performed. Subsequently, the glidecatheter was used to do a pullback man euver on the IRA stenosis. No significant stenosis was identified at the levels of the common iliac arteries and the left external iliac artery. FINDINGS: AO: 120/80 AORTA: Moderate adventitial calcification without significant disease. RENAL arteries: Not well visualized. Grossly appear patent. RCIA: No significant disease. REIA: No significant disease. RIIA: Mild to moderate diffuse irregularities. RCFA: No significant disease. RSFA: Significant diffuse negative remodeling with a mid 60% stenosis. RPOP: No significant disease. RAT: Small caliber vessel with mid subtotal occlusion. RTP trunk: No significant disease. RPER: Small vessel with diffuse distal disease. RPT: Patent and provides robust flow to the foot. LCIA: Mild diffuse irregularities of upto 20%. IRA: No significant disease. LIIA: Mild to moderate diffuse irregularities of up to 40%. LCFA: No significant disease. At case completion, the left sided sheath was removed via manual compression. Conclusion 1. No significant aorto-iliac disease. 2. Moderate non-critical RSFA disease. Recommendations 1. Due to lack of any significant CLI, will plan for continued exercise therapy with close outpatient ultrasound monitoring and consider PVI in the future as needed. 2. Smoking cessation Signed by : Dc Palafox, Electronically Approved : 05/26/2018 13:36:10
--- NOTE | 2018-05-26 14:53 | RAD ---
MR#: [id number] Date of Study: 05/26/2018 Ordering Physician: DC PALAFOX, Referring Physician: DC PALAFOX, Tech: Jc Jorgensen MBA, RDMS, RVT, RDCS, RTR APPROVED REPORT Patient Location: OUT-PATIENT Laterality:Bilateral Indications PAD Doppler Spectral Velocity Analysis Right Left pCCA 76/14 cm/spCCA 109/19 cm/s mCCA 65/13 cm/smCCA 71/16 cm/s dCCA 46/11 cm/sdCCA 73/18 cm/s Bulb 47/12 cm/sBulb 58/15 cm/s ECA 89/ cm/sECA 63/ cm/s pICA 65/23 cm/spICA 63/21 cm/s Jorden 72/26 cm/smICA 90/32 cm/s dICA 74/25 cm/sdICA 85/26 cm/s Vert. 69/ cm/sVert. Subcl. 85/ cm/sSubcl. 106/ cm/s ICA/CCA 0.97ICA/CCA 0.83 Findings Grayscale images of the bilateral common carotid, internal and external carotid vessels reveals mild intimal hyperplasia and minimal atherosclerotic plaque. Spectral waveforms and color Doppler evaluation does not reveal any focal high-grade stenosis involvi ng the internal carotid arteries. No high-grade stenosis is noted in the external carotid arteries. O verall 0 to less than 50% stenosis by velocity criteria in the internal carotid system. The right vertebral velocity is within normal limits and appears to be antegrade. The left vertebral was not visualized/difficult images reveal no obvious flow noted. Normal ICA to CCA ratios noted. Normal subclavian velocities bilaterally. Critical Notification Critical Value: No <Conclusion> 1. No significant carotid occlusive disease bilaterally. 2. Nonvisualized left vertebral artery, possibly related to congenitally small vessel versus occlusio n. Signed by : Dc Palafox, Electronically Approved : 05/26/2018 14:52:51
--- NOTE | 2018-05-26 15:18 | NUR ---
pt discharged to home with family. Pt ambulated and tolerated PO. discharge teaching done
== END 2018-05-26 15:20 | disposition home or self-care (01) ==
LOC: CCL 10:02
PROVIDERS: ATTEND Internal Medicine Cardiovascular Disease
DX: I70.213 Atherosclerosis of native arteries of extremities with intermittent claudication, bilateral legs (principal); E78.5 Hyperlipidemia, unspecified; I25.110 Atherosclerotic heart disease of native coronary artery with unstable angina pectoris; I25.2 Old myocardial infarction; J44.9 Chronic obstructive pulmonary disease, unspecified; I11.0 Hypertensive heart disease with heart failure; I50.9 Heart failure, unspecified; Z95.5 Presence of coronary angioplasty implant and graft; Z82.49 Family history of ischemic heart disease and other diseases of the circulatory system; F17.200 Nicotine dependence, unspecified, uncomplicated; Z01.818 Encounter for other preprocedural examination; Z79.899 Other long term (current) drug therapy
CPT/HCPCS: 36246; 36415; 75625; 75710; 80048; 85027; 85610; 93880; 99152; 99153; C1769; C1892; J1644; J2250; J3010; Q9967; 36245

== ENCOUNTER → 2019-07-09 | Outpatient (CLI) | payer MEDICARE ==
[2018-05-26 14:35] VITALS: BP 119/61
[~2019-07-09] MED LIST changes: +IOHEXOL 240 MG/ML 50ML VIAL. PO ONE; -PANT40TA3 PO; +PANT40TA77 PO
--- NOTE | 2019-07-09 16:12 | RAD ---
EXAM: CT Abdomen and Pelvis without IV contrast CLINICAL HISTORY: LLQ PAIN. COMPARISON: none TECHNIQUE: Helical CT of the abdomen and pelvis was performed without the administration of IV contrast. Axial, coronal and sagittal reformatted images were generated. ---PQRS compliance statement - One or more of the following individualized dose reduction techniques were utilized for this study: 1. Automated exposure control 2. Adjustment of the mA and/or kV according to patient size 3. Use of iterative reconstruction technique--- FINDINGS: Lack of intravenous contrast limits evaluation of solid organs, vasculature, and lymph nodes. Lower chest: Linear opacities in the lingula, left lower lobe and medial right lower lobe likely scarring/atelectasis. Coronary artery calcifications are seen. Abdomen and pelvis: Liver and biliary system: Subcentimeter hypodense left hepatic lobe lesions too small to accurately characterize. Gallbladder is normal. No biliary ductal dilatation. Spleen: Unremarkable Pancreas: Unremarkable Adrenal glands: Unremarkable Kidneys: No renal tract calculus. Subcentimeter hypodense right upper pole renal lesion is too small to accurately characterize. Lymph nodes/retroperitoneum: No abdominal or pelvic lymphadenopathy. Vessels: Dense aortic calcifications are seen. Bowel/Peritoneal cavity: Moderate colonic stool content is seen in the right colon. The left colon and sigmoid colon are essentially decompressed. A few colonic diverticula are seen without evidence for acute diverticulitis. No small or large bowel dilatation. No bowel obstruction. Appendix is normal. No abdominal or pelvic ascites. Abdominal wall: Small fat-containing left inguinal hernia. Bladder: Bladder is unremarkable. Bones: Degenerative changes of the spine are seen. No aggressive osseous lesion. Changes of left total hip arthroplasty are seen. Prior vertebral augmentation changes of L2 are seen. Severe right hip joint osteoarthritis. IMPRESSION: 1. A few colonic diverticula are seen without evidence for acute diverticulitis. The descending colon and rectosigmoid are essentially decompressed. 2. No bowel obstruction. 3. Fat-containing left inguinal hernia. 4. Appendix is normal. 5. No renal tract calculus. Electronically signed by: Oscar Garcia MD (07/09/2019 4:09 PM) NABILA
== END | disposition home or self-care (01) ==
LOC: CT 13:59
PROVIDERS: ATTEND Nurse Practitioner
DX: K40.90 Unilateral inguinal hernia, without obstruction or gangrene, not specified as recurrent (principal); K57.30 Diverticulosis of large intestine without perforation or abscess without bleeding; N28.89 Other specified disorders of kidney and ureter; I25.10 Atherosclerotic heart disease of native coronary artery without angina pectoris; J98.4 Other disorders of lung; I70.0 Atherosclerosis of aorta
CPT/HCPCS: 74176; Q9966

== ENCOUNTER → 2019-09-20 | Outpatient (CLI) | payer MEDICARE ==
[2018-05-26 14:35] VITALS: BP 119/61
[~2019-09-20] MED LIST changes: -IOHEXOL 240 MG/ML 50ML VIAL. PO ONE
--- NOTE | 2019-09-20 14:09 | CARD ---
MR#: [id number] Date of Study: 09/20/2019 Ordering Physician: DC PALAFOX, Referring Physician: DC PALAFOX, Tech: Maria L Galindo [facility] APPROVED REPORT EXAM: Two-dimensional and M-mode echocardiogram with Doppler and color Doppler. Other Information Quality : Technically Limited Technically limited study due to lung/rib interference INDICATION Ischemic Cardiomyopathy; History of CABG 2D DIMENSIONS Left Atrium(2D)2.9 (1.6-4.0cm)IVSd0.8 (0.7-1.1cm) Aortic Root(2D)2.5 (2.0-3.7cm)LVDd4.6 (3.9-5.9cm) PWd0.7 (0.7-1.1cm)LVDs2.9 (2.5-4.0cm) Tricuspid Valve TR P. Vjojihoc583fn/sRAP FSKOLAXW7lkOl TR Peak Gr.17iySeSLLY64jsRl LEFT VENTRICLE The left ventricle is normal size. There is normal left ventricular wall thickness. The left ventricu lar systolic function is normal and the ejection fraction is within normal range. The Ejection Fracti on is 55-60%. There is normal LV segmental wall motion. Transmitral Doppler flow pattern is Grade I-a bnormal relaxation pattern. RIGHT VENTRICLE The right ventricle is normal size. The right ventricular systolic function is normal. ATRIA The left atrium size is normal. The right atrium size is normal. The interatrial septum is intact wit h no evidence for an atrial septal defect or patent foramen ovale as noted on 2-D or Doppler imaging. AORTIC VALVE The aortic valve is calcified and appears to open well. The aortic valve is probably trileaflet. Dopp ler and Color Flow revealed no significant aortic regurgitation. There is no significant aortic valvu lar stenosis. MITRAL VALVE The mitral valve is calcified but opens well. Mitral annular calcification is mild. There is no evide nce of mitral valve prolapse. There is no mitral valve stenosis. Doppler and Color Flow revealed no m itral valve regurgitation noted. TRICUSPID VALVE The tricuspid valve is normal in structure and function. Doppler and Color Flow revealed trace tricus pid regurgitation. The PA pressure was estimated at 23 mmHg. There is no tricuspid valve stenosis. PULMONIC VALVE The pulmonic valve is not visualized. GREAT VESSELS The aortic root is normal in size. The ascending aorta is not well seen. The IVC was not visualized. PERICARDIAL EFFUSION There is no evidence of significant pericardial effusion. Critical Notification Critical Value: No <Conclusion> The left ventricle is normal size. The left ventricular systolic function is normal and the ejection fraction is within normal range. The Ejection Fraction is 55-60%. Doppler and Color Flow revealed no significant aortic regurgitation. There is no significant aortic valvular stenosis. Doppler and Color Flow revealed no mitral valve regurgitation noted. Doppler and Color Flow revealed trace tricuspid regurgitation. The PA pressure was estimated at 23 mmHg. Signed by : Dixon Hamilton MD Electronically Approved : 09/20/2019 14:09:15
--- NOTE | 2019-09-20 14:14 | RAD ---
MR#: [id number] Date of Study: 09/20/2019 Ordering Physician: DC PALAFOX, Referring Physician: DC PALAFOX, Tech: Jc Jorgensen MBA, RDMS, RVT, RDCS, RTR APPROVED REPORT Patient Location: OUT-PATIENT Indications PAD VELOCITY AND DOPPLER WAVEFORM ANALYSIS RIGHT cm/secWaveformSeverity LEFT cm/secWaveform Severity dCFA 140.0BiphasicdCFA 157.0Biphasic Prof Fem Art. 186.0BiphasicProf Fem Art. 168.0Biphasic Fem Art Prox. 213.0BiphasicFem Art Prox. 215.0Biphasic Fem Art Mid. 200.0BiphasicFem Art Mid. 156.0Biphasic Fem Art Dist. 185.0BiphasicFem Art Dist. 177.0Biphasic Pop Art(Fossa) 66.0BiphasicPop Art(AK) 105.0Biphasic HABILITATION ASSISTANT Prox. 38.0BiphasicPTA Prox. 43.0Biphasic HABILITATION ASSISTANT Dist. 71.0BiphasicPTA Dist. 60.0Biphasic PRIYANK Prox. 76.0BiphasicATA Prox. 83.0Biphasic DPA 35BiphasicDPA 37Biphasic Findings Grayscale images of the bilateral lower extremity arterial vessels demonstrate mild to moderate diffu se atherosclerosis. No focal high-grade stenosis identified. Biphasic waveforms are noted from the common femoral artery to the below-knee vessels. The bilateral peroneal arteries are not well visual ized. There is two-vessel runoff below the knee. Critical Notification Critical Value: No <Conclusion> 1. No significant lower extremity arterial disease bilaterally Signed by : Dc Palafox, Electronically Approved : 09/20/2019 14:13:52
--- NOTE | 2019-09-20 16:41 | RAD ---
MR#: [id number] Date of Study: 09/20/2019 Ordering Physician: DC PALAFOX, Referring Physician: STACI NUNES Tech: RT Nabil (R) (N) APPROVED REPORT Test Type: Exercise Stress Nurse/Tech: Brittney Juarez R.N. Test Indications: ischemic cardiomyopathy Cardiac History: CAD, cabg, HI x 3, htn, Medications: isosorbiide, lisinopril, metoprolol Medical History: see ehr Resting ECG: SR Resting Heart Rate: 51 bpm Resting Blood Pressure: 133/59mmHg Pretest Chest Pain: No chest pain Nurse/Tech Notes lungs cta, heart tones irregular Consent: The procedure was explained to the patient in lay terms. Informed consent was witnessed. Miki eout was entered into [employer]. History and Stress Test performed by RT Marianela (R) (N) Stress Symptoms No chest pain or symptoms. Dyspnea POST EXERCISE Reason for Termination: Reached target heart rate Target HR: Yes Max HR: 130 bpm 88% of Maximum Predicted HR: 147 bpm Exercise duration: 5:38 min:sec, 2 Stage Exercise capacity: 4.6METs Max Blood Pressure: 164/66mmHg Blood Pressure response to exercise: Normal blood pressure response during stress. Heart Rate response to exercise: normal Chest Pain: No. Arrhythmia: Yes. PAC and PVC noted INTERPRETATION Stress EKG Conclusion: The resting EKG showed a sinus bradycardia. The stress EKG showed ST depression in the inferior and lateral leads suggestive of ischemia. Imaging Protocol IMAGE PROTOCOL: Rest Tc-99m/stress Tc-99m 1 day Rest: Stress: Viability: Radiopharm.Tc99m OcseyjiwkHs44h Sestamibi Ymbw47pOz 32.6mCi Img Date 09/20/2019 09/20/2019 Inj-Img Wmlv33sst. 60min. Rest Admin Site:IV - Right AntecubitalAdministrator:YULIANA Ramírez, ARRT (R)(N) Stress Admin Site: IV - Right AntecubitalAdministrator: RT Isaiah BearR)(N) STRESS DATA End Diast. Vol.81.0mlLVEDV index BSA35.0ml End Syst. Vol.39.0mlLVESV index BSA17.0ml Myocardial Xife777.0gEject. Auolcsck49.0% Stress Scores Regional WT2.00Summed WT9.00 Regional WM1.00Summed WM12.00 LV Perfusion The stress scans showed an inferior lateral defect. The rest scans showed an inferior lateral defect. Nuclear imaging is consistent with an inferior lateral infarct with some probable mild virginie-infarct r eversible ischemia Wall Motion Left ventricular systolic function shows an ejection fraction of 54% and mild inferior hypokinesis. LV Perf. Quant 17 Seg. SSS11.00 17 Seg. SRS20.00 17 Seg. SDS0.00 Stress Defect Extent (% LAD)0.00Rest Defect Extent (% LAD)33.10Rev. Defect Extent (% LAD)0.00 Stress Defect Extent (% LCX) 50.00Rest Defect Extent (% LCX)50.00Rev. Defect Extent (% LCX)0.00 Stress Defect Extent (% RCA)18.90Rest Defect Extent (% RCA)37.80Rev. Defect Extent (% RCA)0.00 Stress Defect Extent (% DENISE)19.30Rest Defect Extent (% DENISE)35.40Rev. Defect Extent (% DENISE)0.00 Conclusion 1. Good exercise tolerance with the patient walking for 5 minutes and 38 seconds on a Mk protocol reaching 88% of predicted heart rate. 2. No reported chest pain with exertion. 3. The EKG shows inferior lateral ST segment changes suggestive of ischemia. 4. Nuclear imaging shows an inferior lateral infarct with some probable mild virginie-infarct ischemia. 5. Left ventricular systolic function shows mild inferior wall hypokinesis and an ejection fraction o f 54%. 6. Low to moderate risk treadmill nuclear stress test consistent with a prior inferior infarct. Signed by : Dixon Hamilton MD Electronically Approved : 09/20/2019 16:40:46
== END | disposition home or self-care (01) ==
LOC: NM 10:47
PROVIDERS: ATTEND Internal Medicine Cardiovascular Disease
DX: I08.0 Rheumatic disorders of both mitral and aortic valves (principal); I70.203 Unspecified atherosclerosis of native arteries of extremities, bilateral legs; I25.5 Ischemic cardiomyopathy; I25.2 Old myocardial infarction; I10 Essential (primary) hypertension; R00.1 Bradycardia, unspecified
CPT/HCPCS: 78452; 93017; 93306; 93925; A9500

== ENCOUNTER → 2020-02-07 | Outpatient (CLI) | payer MEDICARE ==
[2018-05-26 14:35] VITALS: BP 119/61
[~2020-02-07] MED LIST changes: -AMIO200T4 PO; +AMIO200T6 PO; +CONTRAST GIVEN. MC PRN; +IOHEXOL 240 MG/ML 50ML VIAL. PO ONE
[2020-02-07 11:32] LABS: CREATININE 1.9 mg/dL (0.7-1.3); GFR 34.9
--- NOTE | 2020-02-07 14:41 | RAD ---
EXAM: CT Abdomen and Pelvis without IV contrast CLINICAL HISTORY: lower abd pain COMPARISON: 07/09/19 01/12/2018s TECHNIQUE: Helical CT of the abdomen and pelvis was performed without the administration of IV contrast. Axial, coronal and sagittal reformatted images were generated. ---PQRS compliance statement - One or more of the following individualized dose reduction techniques were utilized for this study: 1. Automated exposure control 2. Adjustment of the mA and/or kV according to patient size 3. Use of iterative reconstruction technique--- FINDINGS: Lack of intravenous contrast limits evaluation of solid organs, vasculature, and lymph nodes. Lower chest: Linear opacities in the lingula and lower lobes likely scarring/atelectasis. Spiculated right lower lobe lung nodule measures 10 x 6 mm new compared to 07/09/2019. Abdomen and pelvis: Liver and biliary system: Nonspecific left hepatic lobe hypodense lesions may be cystic, grossly stable. Gallbladder is normal. No biliary ductal dilatation. Spleen: Unremarkable Pancreas: Unremarkable Adrenal glands: Unremarkable Kidneys: Subcentimeter hypodense right lower pole renal lesion likely cystic. No hydronephrosis. No hydroureter. Lymph nodes/retroperitoneum: No abdominal or pelvic lymphadenopathy. Vessels: Dense atherosclerotic calcifications of the aorta are seen. Bowel/Peritoneal cavity: Moderate colonic stool content is seen. Appendix is normal. No small or large bowel dilatation. No bowel obstruction. Fat-containing left inguinal hernia. Relatively featureless appearance of the descending colon and sigmoid colon with bowel wall fat. A few colonic diverticula are seen. No abdominal or pelvic ascites Prostate measures approximately 4.2 cm in transverse dimension. Abdominal wall: Trace fat-containing periumbilical hernia. Bladder: Bladder diverticulum is suspected although evaluation limited by streak artifact. Bones: Changes of left hip arthroplasty. Severe right hip joint osteoarthritis. Degenerative changes of the spine are seen. SI joint degenerative changes are seen. Vertebral augmentation changes L2. IMPRESSION: 1. Decompressed, relatively featureless appearance of the descending colon and sigmoid colon possibly inflammatory bowel disease. 2. A few colonic diverticula are seen without evidence for acute diverticulitis. 3. Spiculated 10 x 6 mm right lower lobe lung nodule is new, suspicious for malignancy. Consider further evaluation with PET/CT although borderline sized threshold otherwise short interval follow-up CT chest in 3 months is recommended. Message was left with Dr. HENRIQUEZ's answering service at 02/07/2020 2:37 PM.s FOR INTERNAL CODING PURPOSES RESULT CODE: (FUP) Electronically signed by: Oscar Garcia MD (02/07/2020 2:39 PM) LINDAHARSH
== END ==
LOC: CT 10:06
PROVIDERS: ATTEND Family Medicine
DX: K57.32 Diverticulitis of large intestine without perforation or abscess without bleeding (principal); K42.9 Umbilical hernia without obstruction or gangrene; M16.11 Unilateral primary osteoarthritis, right hip
CPT/HCPCS: 36415; 74176; 82565; 84520; Q9966

== ENCOUNTER → 2020-03-27 | Outpatient (CLI) | payer MEDICARE ==
[2018-05-26 14:35] VITALS: BP 119/61
[~2020-03-27] MED LIST changes: -CONTRAST GIVEN. MC PRN; -IOHEXOL 240 MG/ML 50ML VIAL. PO ONE
--- NOTE | 2020-03-27 09:31 | RAD ---
EXAM: CT Chest without IV contrast INDICATION: Reason: lung nodule / Spl. Instructions: / History: TECHNIQUE: Multi-detector row CT images were acquired from the thoracic inlet through the upper abdo men without the use of IV contrast. Sagittal and coronal images were acquired from the transaxial cathy a. All CT scans performed at this facility utilize dose optimization techniques as appropriate to the exam, including the following: Automated exposure control and adjustment of the mA and/or KV accordi ng to patient size (this includes techniques or standardized protocols for targeted exams where dose is indication/reason for exam). COMPARISON: CT chest with IV contrast of 07/09/[address] chest without IV contrast of 02/07/2020 FINDINGS: The absence of IV contrast limits evaluation of soft tissue pathology. CARDIOVASCULAR: Scattered arterial calcifications including dense multivessel coronary calcification s. There are postsurgical changes consistent with a previous CABG. Normal heart size. No pericardial effusion. Upper normal ascending thoracic aortic caliber at 3.8 cm. No evidence of an intramural jodi rochelle. MEDIASTINUM & GIANNA: No adenopathy or masses. Small amount of frothy fluid at the distal trachea depen dently. LUNGS: Mild emphysematous changes. No pulmonary infiltrate, nodule, or other focal abnormality. Minim al bronchiectasis in lower lobe predominant peribronchial thickening. PLEURAL SPACE: No pleural effusions or pneumothorax. 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 Partially imaged vertebroplasty changes at L2. ABDOMEN: Low-density lesions in the left hepatic lobe are present, statistically likely to be a cyst . They are unchanged. IMPRESSION: Changes of COPD with no residual nodule appreciated. The spiculated nodule in the right lower lobe se en slightly under 2 months ago has since resolved and likely reflected an inflammatory nodule. If th e patient is at high risk for lung cancer, enrollment in a [place] lung cancer screening program could be beneficial. Electronically signed by: Della Davis MD (03/27/2020 9:28 AM) [id number]
== END ==
LOC: CT 08:38
PROVIDERS: ATTEND Internal Medicine Critical Care Medicine
DX: R91.1 Solitary pulmonary nodule (principal); I25.10 Atherosclerotic heart disease of native coronary artery without angina pectoris; J43.9 Emphysema, unspecified; J47.9 Bronchiectasis, uncomplicated; K76.9 Liver disease, unspecified; M85.88 Other specified disorders of bone density and structure, other site
CPT/HCPCS: 71250

== ENCOUNTER → 2020-10-06 | Outpatient (CLI) | payer MEDICARE ==
[2018-05-26 14:35] VITALS: BP 119/61
[~2020-10-06] MED LIST changes: -LISI2.5T PO; +LISI2.5T12 PO
--- NOTE | 2020-10-06 14:10 | CARD ---
MR#: [id number] Date of Study: 10/06/2020 Ordering Physician: DC PALAFOX, Referring Physician: DC PALAFOX, Tech: Kecia Barbosa, [facility] APPROVED REPORT EXAM: Two-dimensional and M-mode echocardiogram with Doppler and color Doppler. Other Information Quality : AverageHR: 77bpm INDICATION COPD Cardiomyopathy Surgery/Intervention CABG: Site: [place] RISK FACTORS Hypertension Hyperlipidemia Smoking 2D DIMENSIONS IVSd1.1 (0.7-1.1cm)Aortic Root(2D)3.3 (2.0-3.7cm) LVDd4.5 (3.9-5.9cm)LVOT Diameter2.1 (1.8-2.4cm) PWd1.0 (0.7-1.1cm)LVDs2.6 (2.5-4.0cm) FS (%) 43.5 %SV70.7 ml LVEF(%)74.8 (>50%) Aortic Valve AoV Peak Eddie.145.4cm/sAoV VTI25.6cm AO Peak GR.8.5mmHgLVOT Peak Eddie.121.2cm/s LVOT VTI 23.82cmAO Mean GR.4mmHg GODWIN (VMAX)2.46em7EBN (VTI)3.19cm2 Mitral Valve MV E Roywhgrm87.4cm/sMV DECEL [id number] MV A Ynyomzsr05.0cm/sMV E Mean Gr.1mmHg MV SZW841noP/A Ratio0.7 MVA (PHT)1.94cm2 TDI E/Lateral E'4.5E/Medial E'5.4 Tricuspid Valve TR P. Kghvqtth961li/sRAP RHLAVMFV3tzUz TR Peak Gr.80bdSvJEOV23kmOk Pulmonary Vein S1 Xajcsnfx74.9cm/sD2 Vbhwnvck30.3cm/s PVa stgujhem800nirr LEFT VENTRICLE The left ventricle is normal size. There is borderline to mild concentric left ventricular hypertroph y. The left ventricular systolic function is normal. The Ejection Fraction is 55-60%. There is normal LV segmental wall motion. Transmitral Doppler flow pattern is Grade I-abnormal relaxation pattern. RIGHT VENTRICLE The right ventricle is borderline dilated. The right ventricular systolic function is normal. ATRIA The left atrium size is normal. The right atrium size is normal. The interatrial septum is intact wit h no evidence for an atrial septal defect or patent foramen ovale as noted on 2-D or Doppler imaging. AORTIC VALVE The aortic valve is not well visualized. Doppler and Color Flow revealed trace aortic regurgitation. There is no significant aortic valvular stenosis. Calculated aortic valve area is 2.57 cm2 with maxim um pressure gradient of 10 mmHg and mean pressure gradient of 5 mmHg. MITRAL VALVE The mitral valve is normal in structure and function. There is no evidence of mitral valve prolapse. There is no mitral valve stenosis. Doppler and Color Flow revealed no mitral valve regurgitation note d. TRICUSPID VALVE The tricuspid valve is not well visualized. Doppler and Color Flow revealed trace tricuspid regurgita tion with an estimated PAP of 33 mmHg. There is no tricuspid valve stenosis. PULMONIC VALVE The pulmonic valve is not well visualized. Doppler and color-flow analysis was not performed. GREAT VESSELS The aortic root is normal in size. The IVC was not visualized. PERICARDIAL EFFUSION There is no evidence of significant pericardial effusion. Critical Notification Critical Value: No <Conclusion> The left ventricular systolic function is normal. The Ejection Fraction is 55-60%. There is normal LV segmental wall motion. Transmitral Doppler flow pattern is Grade I-abnormal relaxation pattern. Trace tricuspid regurgitation with an estimated PAP of 33 mmHg. There is no evidence of significant pericardial effusion. Signed by : Johnson Browning, Electronically Approved : 10/06/2020 14:09:37
--- NOTE | 2020-10-11 17:02 | RAD ---
MR#: [id number] Date of Study: 10/06/2020 Ordering Physician: DC PALAFOX, Referring Physician: DC PALAFOX, Tech: Dalia Clark RVT, [facility] APPROVED REPORT Patient Location: OUT-PATIENT Exam Type: Ankle to Brachial Index Indications PAD Risk Factors Hypertension Pressures/Indices RightABI LeftABI Brachial 217btNq8.04Brachial 733ohEu5.99 Ankle(PT) 111mmHgAnkle(PT) 114mmHg Ankle(DP) 120mmHgAnkle(DP) 114mmHg Findings Normal bilateral TIAN. Critical Notification Critical Value: No <Conclusion> 1. Normal bilateral TIAN Signed by : Dc Palafox, Electronically Approved : 10/11/2020 17:01:32
--- NOTE | 2020-10-12 09:47 | RAD ---
MR#: [id number] Date of Study: 10/06/2020 Ordering Physician: FELIPE PALAFOX, Referring Physician: FELIPE PALAFOX, Tech: Dalia Clark RVT, [facility] APPROVED REPORT Patient Location: OUT-PATIENT Indications PAD Risk Factors Hypertension VELOCITY AND DOPPLER WAVEFORM ANALYSIS RIGHT cm/secWaveformSeverity LEFT cm/secWaveform Severity dCFA 111.0BiphasicdCFA 112.0Triphasic Prof Fem Art. 60.0BiphasicProf Fem Art. 103.0Biphasic Fem Art Prox. 77.0BiphasicFem Art Prox. 72.0Biphasic Fem Art Mid. 215.0BiphasicFem Art Mid. 90.0Biphasic Fem Art Dist. 76.0BiphasicFem Art Dist. 58.0Biphasic Pop Art(Fossa) 56.0BiphasicPop Art([place]) 49.0Biphasic SURGICAL APPLIANCE FITTER Prox. 25.0BiphasicPTA Prox. 36.0Biphasic SURGICAL APPLIANCE FITTER Dist. 49.0BiphasicPTA Dist. 45.0Biphasic Per Art Dist.27.0BiphasicPer Art Dist.36.0Biphasic PRIYANK Prox. 46.0BiphasicATA Prox. 42.0Biphasic DPA 28BiphasicDPA 28Biphasic Findings Grayscale images of the bilateral lower extremity arterial vessels demonstrates mild to moderate diff use atherosclerosis. On the right side there is likely a moderate 50% stenosis involving the mid SFA. Below the knee ther e is three-vessel runoff with diminished velocities but biphasic wave patterns. On the left side overall no significant above-knee disease is noted. Below the knee the velocities a re slightly diminished but biphasic waveforms are noted throughout. There is three-vessel runoff. Critical Notification Critical Value: No <Conclusion> 1. Probable moderate right SFA disease. No significant left-sided disease. Signed by : Felipe Palafox, Electronically Approved : 10/12/2020 09:46:49
== END ==
LOC: ECHO 08:31
PROVIDERS: ATTEND Internal Medicine Cardiovascular Disease
DX: I70.203 Unspecified atherosclerosis of native arteries of extremities, bilateral legs (principal); I51.7 Cardiomegaly; I25.5 Ischemic cardiomyopathy
CPT/HCPCS: 93306; 93922; 93925

== ENCOUNTER 2020-11-20 17:59 | Emergency (ER) | payer MEDICARE ==
[~2020-11-20] VITALS: Ht 175.3 cm; Wt 90.0 kg
[2020-11-20 18:28] LABS: BASO # 0.2 x10^3/uL (0.0-0.2); BASO % 2 % (0-3); EOS # 0.3 x10^3/uL (0.0-0.7); EOS % 3 % (0-3); HEMATOCRIT 45.3 % (39.0-53.0); LYMPH # 3.3 x10^3/uL (1.0-4.8); LYMPH % 28 % (24-48); MEAN CORPUSCULAR HEMOGLOBIN 30 pg (25-35); MEAN CORPUSCULAR HGB CONC 33 g/dL (31-37); MEAN CORPUSCULAR VOLUME 90 fL (79-100); MONO # 1.2 x10^3/uL (0.0-1.1); MONO % 10 % (0-9); NEUT # 6.7 x10^3/uL (1.8-7.7); NEUT % 58 % (31-73); PLATELET COUNT 282 x10^3/uL (140-400); RED BLOOD COUNT 5.01 x10^6/uL (4.30-5.70); RED CELL DISTRIBUTION WIDTH 15.3 % (11.5-14.5); WHITE BLOOD COUNT 11.7 x10^3/uL (4.0-11.0)
[2020-11-20] MEDS ORDERED: IV NORMAL SALINE 1000ML BAG 1,000 ML IV ONE (18:30)
--- NOTE | 2020-11-20 18:30 | PHYS DOC ---
Past Medical History Past Medical History: High Cholesterol, Hypertension, GA (ZANA APONTE APRN) Past Surgical History: Angioplasty, Coronary Bypass Surgery, Other Additional Past Surgical Histo: l hip sx, 5 vessle cabg, stents x6 (ZANA APONTE APRN) Smoking Status: Former Smoker Alcohol Use: None Drug Use: None (ZANA APONTE APRN) General Adult EDM: Chief Complaint: HYPOTENSION HPI: HPI: Patient is a 75-year-old male presents to the emergency department via EMS with chief complaint of near syncopal episode at home today at approximately 1700. Patient reports he was eating bread at dinner when he felt a sudden onset of facial flushing, bilateral hand tingling, nausea and dizziness, felt he may pass out, became diaphoretic. Patient states he thought his blood pressure was low, checked his blood pressure with home blood pressure machine showed 76/57, states his immediately called 911. Patient reports the paramedics told him his heart rate was 30 and erratic. Patient states he started feeling better in route to the emergency department and currently has no symptoms. Patient denies any chest pain or shortness of breath. Denies abdominal pain, vomiting or diarrhea. Currently denies nausea. Patient states all his symptoms have resolved. Patient reports having similar symptoms at least 2-3 times a month, states he believes it happens when he eats bread. Patient denies other physical complaints or physical concerns. (ZANA APONTE APRN) Review of Systems: Review of Systems: 14 body systems of review of systems have been reviewed. See HPI for pertinent positives and negative responses, otherwise all other systems are negative, nonpertinent or noncontributory. Constitutional: Negative except as outlined in HPI above. Skin: Negative except as outlined in HPI above. Eyes: Negative except as outlined in HPI above. HENT: Negative except as outlined in HPI above. Respiratory: Negative except as outlined in HPI above. Cardiovascular: Negative except as outlined in HPI above. GI: Negative except as outlined in HPI above. : Negative except as outlined in HPI above. Musculoskeletal: Negative except as outlined in HPI above. Integument: Negative except as outlined in HPI above. Neurologic: Negative except as outlined in HPI above. Endocrine: Negative except as outlined in HPI above. Lymphatic: Negative except as outlined in HPI above. Psychiatric: Negative except as outlined in HPI above. (ZANA APONTE APRN) Heart Score: C/O Chest Pain: No Risk Factors: Risk Factors: DM, Current or recent (<one month) smoker, HTN, HLP, family history of CAD, obesity. Risk Scores: Score 0 - 3: 2.5% MACE over next 6 weeks - Discharge Home Score 4 - 6: 20.3% MACE over next 6 weeks - Admit for Clinical Observation Score 7 - 10: 72.7% MACE over next 6 weeks - Early Invasive Strategies (ZANA APONTE APRN) Current Medications: Patient reports current home medications as Lasix, pantoprazole, lisinopril, baby aspirin, atorvastatin. Current Medications Medications (Trade) Dose Ordered Sig/Mj Start Time Stop Time Status Last Admin Dose Admin Sodium Chloride 1,000 ml @ 1,000 mls/hr 1X ONCE 11/20/20 18:30 11/20/20 19:29 (ZANA APONTE APRN) Allergies: Allergies: Allergies Coded Allergies Type Severity Reaction Last Updated Verified No Known Drug Allergies 02/04/18 No (ZANA APONTE APRN) Physical Exam: PE: Constitutional: Well developed, well nourished, no acute distress, non-toxic appearance. 75-year-old male in no apparent distress. HENT: Normocephalic, atraumatic. Eyes: Conjunctiva normal, no discharge. Neck: Normal range of motion, no stridor. Cardiovascular: No cyanosis appreciated, distal cap refill less than 2 seconds. Heart sounds S1-S2, RRR. Lungs & Thorax: Patient is in no respiratory distress, no audible adventitious lung sounds appreciated. No adventitious lung sounds appreciated per auscultation, lung sounds clear to auscultate all lung prieto. Patient no respiratory distress. Abdomen: Nontender, no abnormalities noted. Skin: Warm, dry, no erythema, no rash. Back: No tenderness, no deformities. Extremities: No tenderness, no cyanosis, no clubbing, ROM intact, no edema. Neurologic: Alert and oriented X 3, normal motor function, normal sensory function, no focal deficits noted. Psychologic: Affect normal, judgement normal, mood normal. (ZANA APONTE APRN) Current Patient Data: Vital Signs: Vital Signs Date Time Temp Pulse Resp B/P (MAP) Pulse Ox O2 Delivery O2 Flow Rate FiO2 11/20/20 18:00 97.7 74 16 134/74 (94) 96 Room Air 97.7 (ZANA APONTE APRN) EKG: EKG: EKG performed at 1755 by ED nursing staff shows a normal sinus rhythm without other ectopy, heart rate 75 bpm, AR interval 0.162, QTc interval 0.436, no acute STEMI, no ACS, no acute ischemia appreciated, EKG interpreted by ED attending physician Dr. Pandey. (ZANA APONTE APRN) Radiology/Procedures: Radiology/Procedures: [] (ZANA APONTE APRN) Course & Med Decision Making: Course & Med Decision Making Pertinent Labs and Imaging studies reviewed. (See chart for details) 75-year-old male, vital signs reviewed, presents emergency department concerning near syncopal episode at home. Patient's physical presentation unremarkable, patient's explanation of events consistent with vasovagal episode. Patient is currently symptom-free, with patient's cardiac history will order cardiorespiratory work-up. Patient is amenable to ED work-up planning. End of shift report given to Dr. Holland. Tests pending at this time. (ZANA APONTE APRN) Course & Med Decision Making Patient was evaluated for chief complaint. Workup consisted of labs and radiologic imaging. Results reviewed and discussed with patient. Patient noted to have elevated Cr-- 2.3-- comparable to previous. Discussed lab with patient and he is unaware. Patient advised to follow up with PCP regarding Cr. Patient also states has previous had similar symptoms in past but becoming more frequent. Advised to follow up with PCP regarding post prandial hypotension. Treatment included IV fluids. Patient was discharged. (MARCO ANTONIO HOLLAND DO) Dragon Disclaimer: Dragon Disclaimer: This electronic medical record was generated, in whole or in part, using a voice recognition dictation system. (ZANA APONTE APRN) Departure Departure Impression: Primary Impression: Vasovagal response Additional Impressions: Hypotension Elevated creatine kinase Disposition: HOME / SELF CARE / HOMELESS Condition: STABLE Referrals: RAFAT HENRIQUEZ (PCP) Patient Instructions: Dehydration, Adult, Hypotension Additional Instructions: Elevated Creatine ZANA APONTE APRN Nov 20, 2020 18:30 MARCO ANTONIO HOLLAND DO Nov 20, 2020 19:54
[2020-11-20 18:39] LABS: CALCIUM 8.9 mg/dL (8.5-10.1); CREATININE 2.3 mg/dL (0.7-1.3); GFR 27.9; POTASSIUM 4.8 mmol/L (3.5-5.1)
[2020-11-20 18:46] LABS: ALBUMIN 3.6 g/dL (3.4-5.0); ALBUMIN/GLOBULIN RATIO 1.1 (1.0-1.7); TOTAL BILIRUBIN 0.3 mg/dL (0.2-1.0)
--- NOTE | 2020-11-20 19:09 | RAD ---
EXAMINATION: Chest radiograph. VIEWS: Single view COMPARISON: 03/27/2020 INDICATION:75 years, Male, syncope and hypotensive FINDINGS: Normal cardiomediastinal silhouette. No focal consolidation. No pleural effusion or pneumothorax. No acute osseous process. Median sternotomy wires. IMPRESSION: No acute cardiopulmonary process. Electronically signed by: Jeimy Alvarez MD (11/20/2020 7:07 PM) [facility]
[2020-11-20 19:50] VITALS: BP 131/73
== END 2020-11-20 20:10 | disposition home or self-care (01) ==
LOC: ER 17:59
DX: R55 Syncope and collapse (principal); I95.9 Hypotension, unspecified; R74.8 Abnormal levels of other serum enzymes; E78.00 Pure hypercholesterolemia, unspecified; I10 Essential (primary) hypertension; I25.2 Old myocardial infarction; Z95.5 Presence of coronary angioplasty implant and graft; Z95.1 Presence of aortocoronary bypass graft; Z87.891 Personal history of nicotine dependence
CPT/HCPCS: 36415; 71045; 80053; 84484; 85025; 96360; 99285; J7030